=== PATIENT | male | born 1965 | race Caucasian/White ===

== ENCOUNTER 2016-07-09 09:38 | Emergency (ER) | payer OTHER ==
[~2016-07-09] VITALS: Ht 188 cm; Wt 82.0 kg
--- NOTE | 2016-07-09 10:02 | ED.REPORT ---
HPI-General Illness Date of Service Jul 09, 2016 ED Provider: Dr. Jose Armando Navarrete M.D. A 51 year old homeless male with a history of recently-diagnosed [place]'s disease presents to the ED after a ground level fall today at the [facility]. He reports hitting his head and is unsure of whether or not he lost consciousness. He also reports "heart cramping" and trouble concentrating. The patient declines x-ray or laboratory work but requests food and pain medication. Nursing Notes Stated Complaint: EVAL Nursing Notes Reviewed: Yes Allergies: Coded Allergies: No Known Allergies (Unverified , 07/09/16) General Time Seen by MD: 10:01 Chief Complaint Other (Ground level fall) Hx Obtained From: Patient Arrived By: Walk-in Sudden in Onset?: Yes Onset Occurred: 1 - 4 hours ago Symptom Duration: Since onset Caused by: Fall on ground Location: : Chest: Head Quality: Painful Severity: Current: Moderate Severity: Maximum: Moderate Associated with: Reports: Headache, Denies: Fever Pertinent Negative: Relieved by nothing Recent Healthcare: No recent doctor visit Similar Sx Previous: No Past Medical History Past Medical History [place]'s Disease Past Surgical History None reported Smoking History Unknown if Ever Smoker Social History Other Social History: Poor social support, Homeless Ambulatory Status Independent Review of Systems + trouble concentrating Full Review of Systems Constitutional: Denies: Fever Respiratory: Denies: Shortness of breath Cardiovascular: Reports: Chest pain ("cramping") GI: Denies: Vomiting Neurologic: Reports: Headache Complete sys rev & neg: except as marked. Physical Exam Vital Signs Vital Signs Date Time Temp Pulse Resp B/P Pulse Ox O2 Delivery O2 Flow Rate FiO2 07/09/16 10:30 37.4 121 16 142/67 99 Room Air Initial VS: Reviewed ENT: Conjunctiva normal, No scleral icterus Neck: Supple, Full range of motion Respiratory: Breath sounds normal, Clear to auscultation, No respiratory distress Cardiovascular: Regular rate & rhythm, Heart sounds normal Skin: Warm, Dry, No cyanosis Neurologic: Alert, Oriented, Nonfocal Psychiatric: Mood/affect normal, Behavior normal, Normal thought content General/Constitutional: Awake, Alert, No acute distress Head / Eyes: Atraumatic, Normocephalic No visible injury, crepitus, or deformity Respiratory / Chest: Breath sounds NL, Breath sounds = bilat, No respiratory distress Chest Wall / Ribs: Positive: Chest tender upper L, Chest tender upper R Re-Eval/Medical Decision Med Decision/Clinical Course This homeless disheveled gentleman has the appearance of one with [place]'s chorea with continuous choreoathetoid movements. He declines evaluation with x- ray or laboratory data and simply tells me that he is hungry and would like some pain pills. rn support services was contacted and will discuss community resources that may be available to help him. He does not appear to be in any immediate distress nor does he have any overt injuries that I can identify. Specifically, he states that he has had a head injury but I have no abnormalities identified on his head examination. Time of Eval: 11:25 Patient Status: Condition improved Re-Evaluation/Progress Note: Discussed with patient diagnosis and plan for discharge. Follow-up and return to the ER instructions given. Patient agrees with plan for care and all questions were addressed. Counseled Regarding: Diagnosis, Need for follow-up, When/why to return to ED Discharge & Departure Primary Impression: Fall from ground level Disposition: Home Discharge Condition All VS Reviewed: Yes Condition: Stable Patient Instructions: Fall Prevention for Older Adults (GEN) Additional Instructions: Thank you for entrusting us with your care. Your exam today was reassuring. Call the referred clinic tomorrow for a follow-up appointment. Return to the ER with any new or worsening symptoms. Referrals: [facility] Scribe Attestation Portions of this note were transcribed by Kristen Javier. I, Dr. Navarrete, personally performed the history, physical exam, and medical decision-making; I reviewed and confirmed the accuracy of the information in the transcribed note. Signed by: Cara Sorenson, 07/09/2016, 11:46 copies to: [facility] Jose Armando Navarrete MD Jul 09, 2016 10:02 KRISTEN JAVIER Jul 09, 2016 11:41
[2016-07-09 10:30] VITALS: BP 142/67; PULSE 121; RESP 16; O2SAT 99
[2016-07-10] MEDS ORDERED: HYDR-3089 PO (13:30)
[2016-07-10] MEDS ORDERED: ACET325T51 PO (13:30)
== END 2016-07-09 12:47 | disposition home or self-care (01) ==
LOC: SED 09:38
DX: S09.90XA Unspecified injury of head, initial encounter (principal); W19.XXXA Unspecified fall, initial encounter; Y93.89 Activity, other specified; Y92.10 Unspecified residential institution as the place of occurrence of the external cause; Y99.8 Other external cause status; Z59.0 Homelessness

== ENCOUNTER 2016-07-10 11:08 | Inpatient (IN) | payer OTHER ==
[~2016-07-10] VITALS: Ht 188 cm; Wt 74.0 kg
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
[2016-07-10] MEDS ORDERED: 0.9% Sodium Chloride 1,000 ML IV ONE (11:22)
[2016-07-10 11:37] VITALS: BP 117/98; PULSE 121; RESP 27; O2SAT 98
[2016-07-10] MEDS ORDERED: Bupivacaine 0.5%/EPI 50 mL Inj ONE (11:59)
[2016-07-10] MEDS ORDERED: Lidocaine 2%-Epi 1:100,000 20 mL Inj ONE (11:59)
[2016-07-10 12:01] VITALS: BP 127/70; PULSE 115; RESP 24; O2SAT 95
[2016-07-10] MEDS ORDERED: Ondansetron 2 mg/mL 2 mL Inj IVPUSH PRN ×2 (12:10→13:30)
[2016-07-10] MEDS ORDERED: HYDROmorphone 1 mg/mL Inj IVPUSH PRN (12:10)
[2016-07-10 12:13] LABS: BASOPHILS % (AUTO) 0.1 % (0-3); EOSINOPHILS % (AUTO) 0.2 % (0-5); MONOCYTES % (AUTO) 6.7 % (4-12); Mean Corpuscular Hemoglobin 30.3 pg (27.0-35.0); Mean Corpuscular Volume 91.5 fL (81-100); NEUTROPHILS % (AUTO) 88.5 % (40-74); Platelet Count 465 bil/L (150-400)
--- NOTE | 2016-07-10 12:17 | DRSVH ---
PROCEDURE: X-RAY LEFT FOOT COMPLETE, MINIMUM THREE VIEWS ([id number]) INDICATIONS: sepsis TECHNIQUE: 3 views of the foot were acquired. COMPARISON: None. FINDINGS: Bones: No fractures or dislocations. No discrete bony erosions or periosteal reaction. Soft tissues: There is soft tissue swelling laterally in the distal forefoot. There is also suggest ion of a soft tissue ulcer between the 1st and 2nd toes. IMPRESSION: 1. No definite evidence of osteomyelitis or fracture. 2. Soft tissue swelling laterally in the distal forefoot with suggestion of a soft tissue ulcer betw een the 1st and 2nd toes. Further evaluation may be obtained with an MRI if clinically indicated. Dictated by: Medardo Mohan M.D. on 07/10/2016 at 12:12 Approved by: Medardo Mohan M.D. on 07/10/2016 at 12:12
--- NOTE | 2016-07-10 12:19 | DRSVH ---
PROCEDURE: X-RAY RIGHT FOOT COMPLETE, MINIMUM THREE VIEWS ([id number]) INDICATIONS: sepsis TECHNIQUE: 3 views of the foot were acquired. COMPARISON: None. FINDINGS: Bones: Evaluation limited due to suboptimal positioning. No fractures or dislocations. No discrete bony erosions or periosteal reaction. Soft tissues: There is mild soft tissue swelling laterally at the level of the 5th metatarsophalangea l joint. There is also suggestion of a plantar soft tissue ulcer on the lateral projection of the le hedy of the metatarsophalangeal joints. IMPRESSION: 1. No definite fractures or radiographic evidence of osteomyelitis. 2. Soft tissue swelling laterally with suggestion of a plantar soft tissue ulcer. Further evaluatio n may be obtained with an MRI if clinically indicated. Dictated by: Medardo Mohan M.D. on 07/10/2016 at 12:14 Approved by: Medardo Mohan M.D. on 07/10/2016 at 12:14
--- NOTE | 2016-07-10 12:21 | DRSVH ---
PROCEDURE: X-RAY CHEST ONE VIEW, PORTABLE ([id number]) INDICATIONS: sepsis TECHNIQUE: One view of the chest was acquired. COMPARISON: None. FINDINGS: Surgical changes and devices: None. Lungs and pleura: No pleural effusions or pneumothorax. Lungs are clear. Mediastinum: Mediastinal contours appear normal. Heart size is normal. Bones and chest wall: No suspicious bony lesions. Overlying soft tissues appear unremarkable. IMPRESSION: 1. No acute cardiopulmonary disease. Dictated by: Medardo Mohan M.D. on 07/10/2016 at 12:17 Approved by: Medardo Mohan M.D. on 07/10/2016 at 12:17
[2016-07-10] MEDS ORDERED: Clindamycin Inj 900 MG in IV Premix 1 EACH IV ONE (12:45)
[2016-07-10] MEDS ORDERED: Vancomycin Dose per Pharmacist XX ONE ×2 (12:45→14:15)
[2016-07-10] MEDS ORDERED: Meropenem Inj 1,000 MG in 0.9% Sodium Chloride 100 ML IV ONE (12:45)
[2016-07-10 12:51] LABS: TROPONIN T 0.01 ug/L (0.0-0.011)
[2016-07-10 12:52] LABS: INR 1.24 ratio
[2016-07-10] MEDS ORDERED: Alum-Mag Hydrox-Simeth 30 mL Suspension PO PRN (13:30)
[2016-07-10] MEDS ORDERED: ACET325T51 PO (13:30)
[2016-07-10] MEDS ORDERED: HYDR-3089 PO (13:30)
[2016-07-10 14:03] VITALS: BP 105/52; PULSE 105; RESP 21; O2SAT 92
[2016-07-10] MEDS ORDERED: 0.9% Sodium Chloride 1,000 ML IV SCH (14:14)
[2016-07-10] MEDS ORDERED: HYDROmorphone 0.5 mg/0.5 mL iSecure Syringe IVPUSH PRN (14:15)
[2016-07-10] MEDS ORDERED: Glucose 40% Oral Gel 15 Gm Tube PO PRN (14:25)
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
[2016-07-10 15:06] VITALS: BP 117/65; PULSE 112; RESP 19; O2SAT 94
--- NOTE | 2016-07-10 15:17 | PCM.CHPPOD ---
Subjective Date of service Jul 10, 2016 History of Present Illness 51 year old homeless male evaluated in the ED with bilateral forefoot gangrene. Patient is a poor historian but states that he hasn't looked at his feet in a few months. Patient states that he doesnt routinely take off his shoes. Patient is complaining of hunger. Allergy Allergies: Coded Allergies: No Known Allergies (Unverified , 07/09/16) Medications Acetaminophen (Acetaminophen) 325 Mg Tablet 325 MG PO Q4H Hydrocodone-Acetaminophen 10-300 mg (Hydrocodone-Acetaminophen 10-300 mg) 1 Each Tablet 1 TABLET PO Q4H PRN PRN For Pain Social History Hx Alcohol Use: No Hx Substance Use: No Smoking Status: Unknown if Ever Smoker Podiatry Consult Exam Vital Signs Vital Sign - Last Date Time Temp Pulse Resp B/P Pulse Ox O2 Delivery O2 Flow Rate FiO2 07/10/16 14:03 105 21 105/52 92 Room Air 07/10/16 11:37 37.5 Result Diagram: 07/10/16 1208 07/10/16 1122 Lab Test 07/10/16 11:22 07/10/16 12:08 Sodium Level 136mEq/L (134-144) Potassium Level 3.7mEq/L (3.5-5.2) Chloride Level 95mEq/L (97-108) Carbon Dioxide Level 23mmol/L (18-29) Blood Urea Nitrogen 18mg/dL (6-24) Creatinine 0.96mg/dL (0.76-1.27) Estimat Glomerular Filtration Rate 87mL/min (>59) Glucose Level 136mg/dL (60-99) Calcium Level 8.8mg/dL (8.5-10.1) Magnesium Level 2.0mg/dL (1.6-2.6) Total Bilirubin 0.4mg/dL (0.0-1.2) Aspartate Amino Transf (AST/SGOT) 39U/L (0-50) Alanine Aminotransferase (ALT/SGPT) 35U/L (0-44) Alkaline Phosphatase 100U/L (25-150) Troponin T 0.010ug/L (0.0-0.011) Total Protein 7.3g/dL (6.4-8.4) Albumin 3.1g/dL (3.4-5.0) White Blood Count 20.5th/mm3 (3.8-10.1) Red Blood Count 4.12mil/mm3 (4.40-5.80) Hemoglobin 12.5g/dL (13.8-17.2) Hematocrit 37.7% (41.0-50.0) Mean Corpuscular Volume 91.5fL (81-100) Mean Corpuscular Hemoglobin 30.3pg (27.0-35.0) Mean Corpuscular Hemoglobin Concent 33.2% (32.0-37.0) Red Cell Distribution Width 13.1% (12.3-15.4) Platelet Count 465bil/L (150-400) Neutrophils (%) (Auto) 88.5% (40-74) Lymphocytes (%) (Auto) 4.0% (14-46) Monocytes (%) (Auto) 6.7% (4-12) Eosinophils (%) (Auto) 0.2% (0-5) Basophils (%) (Auto) 0.1% (0-3) Prothrombin Time 13.3sec (8.1-12.5) Prothromb Time International Ratio 1.24ratio Lactic Acid Level 2.0mmol/L (0.4-2.0) Exam General: Alert, Oriented X3, Cooperative, No Acute Distress Lower Extremities: Bilateral: Edema localized Extremity cool Lower Extremity Pulses: Absent: Left Dorsalis Pedis Left Posterior Tibal Right Dorsalis Pedis Right Posterior Tibal Podiatry WOUND : Wound Location/Description Bilateral forefoot wet gangrene with superficial skin sloughing to all digits. erythema extends to the midfoot bilaterally. THe forefoot is cold to touch bilaterally. severe mal odor. pulses are absent. notable edema bilateral forefoot. palpable fluctuance of the right 1st intermetatarsal space 1 cm proximal to the digital articulation, Multiple right foot wounds including dorsal midfoot and posterior heel. I&D of right foot is productive for mild purulent drainage. and mal odor of the right 1st webspace Multiple superficial excoriations of the left dorsal foot and posterior heel Assessment & Plan Assessment Gangrenous necrosis bilateral forefoot with multiple lower extremity ulcerations. Problems: Plan Patient evaluated in ED today. Clinical evaluation consistent with wet gangrene bilateral foot. after thorough discussion with patient Bilateral bedside incision and drainage was preformed. Bilateral foot prepped with betadine, a #11 blade was used to make a stab incision of the first webspace bilaterally as well as the dorsal right foot. gas noted with mal odor of bilateral 1st webspace. Mild purulent drainage noted to the right dorsal foot. wound cultures sent. wounds flushed with betadine and saline mixture. wounds packed with iodoform gauze and dressed with dry sterile gauze and kerlix. Continue broad spectrum antibiotic coverage. follow wound cultures and narrow appropriately. Plan for OR tomorrow for likely bilateral transmetatarsal amputation. Please keep NPO overnight tonight. Podiatry will follow daily. non weight bearing bilateral foot. patient likely to require longterm wound care following TMA and is at significant risk for bilateral BKA. Will likely require longterm SNF care or inpatient care due to homelessness. Simone Song DPM Jul 10, 2016 15:17
[2016-07-10] MEDS: 0.9% Sodium Chloride 1,000 ML IV SCH ×3 (15:41→16:30)
--- NOTE | 2016-07-10 15:50 | NUR ---
lovenox pt declined lovenox, stated he just had an injection in the e.r. and would consider taking it tomorrow. pt. instructed this medication prevents c;ot formation while he is being inactive. Information on lovenox given to pt.
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
[2016-07-10] MEDS: Insulin LISPRO 300 Unit/3 mL Inj SUBQ SCH ×2 (17:30→22:00)
--- NOTE | 2016-07-10 19:07 | NUR ---
UA/I>V> obtained urine specimen et sent to lab per orders. I.V. positional, ivt to bedside to restart , pt refused new iv start,flushes easilly at this time.
[2016-07-10 20:03] LABS: APPEARANCE,URINE SLIGHTLY CLOUDY (CLEAR,HAZY); COLOR,URINE YELLOW (YELLOW); OCCULT BLOOD,URINE LARGE (NEGATIVE); PH,URINE 5.5 (5.0-8.0)
[2016-07-10 20:30] VITALS: BP 141/69; PULSE 91; RESP 20; O2SAT 96
[2016-07-10] MEDS ORDERED: Clindamycin Inj 600 MG in IV Premix 1 EACH IV SCH (20:30)
[2016-07-10] MEDS: Meropenem Inj 1,000 MG in IV Premix 1 EACH IV SCH (22:12)
[2016-07-11] VITALS (12 sets, daily range): BP systolic 78–140; BP diastolic 40–80; PULSE 86–111; RESP 14–33; O2SAT 95–99
--- NOTE | 2016-07-11 01:59 | NUR ---
Refusal of BG check/insulin administration Despite multiple attempts patient has refused BG one touches throughout the shift. Patient is pleasant and politely refuses his BG to be checked. At 2200, patient was again educated on the importance of checking his blood sugar so that insulin could be given if he needed coverage. Patient still declined. Will continue to monitor, and continue to attempt BG checks. Will continue Q 1 hour checks.
[2016-07-11] MEDS: 0.9% Sodium Chloride 1,000 ML IV SCH ×4 (02:22→23:19)
--- NOTE | 2016-07-11 03:45 | NUR ---
Positive Blood Cultures/ MD Paged Notified by lab at 033 of a positive blood culture of Gram Negative Rods. Night hospitalist notified. No new orders at this time. Care continues
--- NOTE | 2016-07-11 06:08 | NUR ---
Lab Draw Refusal This morning patient refused to have lab preform a lab draw. Pt was educated on the importance of needing a lab draw so tests can be ran, but still declined. Patient again was polite throughout the discussion, but still did not agree to the draw. Will share this with day shift nurse. Care continues.
[2016-07-11] MEDS: Meropenem Inj 1,000 MG in IV Premix 1 EACH IV SCH ×2 (07:50→16:40)
[2016-07-11] MEDS: Insulin LISPRO 300 Unit/3 mL Inj SUBQ SCH ×4 (07:50→22:00)
[2016-07-11] MEDS ORDERED: Ondansetron 2 mg/mL 2 mL Inj ONE (09:25)
[2016-07-11] MEDS ORDERED: Propofol 10,000 mCg/mL 20 mL Inj ONE (09:25)
[2016-07-11] MEDS ORDERED: fentaNYL-PF 50 mCg/mL 2 mL Inj ONE (09:29)
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
--- NOTE | 2016-07-11 10:19 | NUR ---
Refuses Lab Draws and BGL checks Pt refusing blood glucose checks and lab draws despite education. Hospitalist aware. Will continue to attempt education and see if he gives us the ok. Bed down and locked, call light w/in reach
--- NOTE | 2016-07-11 10:36 | NUR ---
To OR Pt taken to OR via hospital bed at 1036. Consent signed, IV SL, report given to FRANCESCA Carmichael.
[2016-07-11] MEDS ORDERED: Lactated Ringer's 1,000 ML IV ONE (10:43)
[2016-07-11] MEDS ORDERED: Bupivacaine-MPF 0.5% W/EPI 30 mL Inj INFILTRATE ONE (11:00)
[2016-07-11] MEDS ORDERED: Lidocaine 2%-Epi 1:100,000 20 mL Inj INFILTRATE ONE (11:00)
[2016-07-11] MEDS ORDERED: Lactated Ringer's 500 ML IV PRN (11:17)
[2016-07-11] MEDS ORDERED: Lactated Ringer's 1,000 ML IV SCH (11:17)
[2016-07-11] MEDS ORDERED: Labetalol 5 mg/mL 4 mL Inj IV PRN (11:20)
[2016-07-11] MEDS ORDERED: Ondansetron 2 mg/mL 2 mL Inj IVPUSH PRN (11:20)
[2016-07-11] MEDS ORDERED: hydrALAZINE 20 mg/mL Inj IVPUSH PRN (11:20)
[2016-07-11] MEDS ORDERED: fentaNYL-PF 50 mCg/mL 2 mL Inj IVPUSH PRN (11:20)
[2016-07-11] MEDS ORDERED: HYDROmorphone 1 mg/mL Inj IVPUSH PRN (11:20)
[2016-07-11] MEDS ORDERED: Dexamethasone 4 mg/mL Inj IVPUSH PRN (11:20)
[2016-07-11] MEDS ORDERED: Atropine 0.4 mg/mL Inj IVPUSH PRN (11:20)
[2016-07-11] MEDS ORDERED: EPHEDrine Sulfate 50 mg/mL Inj IVPUSH PRN (11:20)
[2016-07-11] MEDS ORDERED: Phenylephrine 10,000 mCg/mL Inj IVPUSH PRN (11:20)
--- NOTE | 2016-07-11 11:24 | PCM.PNMED ---
Subjective Date of Service Jul 11, 2016 Subjective He is very solicitous. He appreciates all care provided and is quite verbal about it. He is evasive when questioned about his living situation. He is pending transmetatarsal amputation bilateral today. His blood cultures are growing gram-negative rods. His morning labs are still pending. He is reportedly refusing all blood sugars and blood draws beginning yesterday. Exam Vital Signs Vital Sign - Last Date Time Temp Pulse Resp B/P Pulse Ox O2 Delivery O2 Flow Rate FiO2 07/11/16 05:26 36.6 93 18 118/66 95 Room Air Intake and Output 07/10/16 07/10/16 07/11/16 Cumulative From/Thru 15:00 23:00 07:00 07/10/16 11:37 - 07/11/16 05:35 Intake Total 1000 ml 531 ml 2421 ml 3952 ml Output Total 1100 ml 639 ml 1739 ml Balance 1000 ml -569 ml 1782 ml 2213 ml Intake Oral 531 ml 600 ml 1131 ml IV Total 1000 ml 1821 ml 2821 ml Output Urine Total 1100 ml 639 ml 1739 ml # Voids 3 3 # Bowel Movements 0 0 Exam Alert and oriented 3, no apparent distress. Quite evasive but otherwise friendly and appreciative. Heart is regular rate and rhythm without murmur. Lungs are clear to auscultation bilaterally. Extremities have no ankle edema. He has large bandages on both feet which are not removed as he will be going to surgery in a few hours. IVs and Medications Medications Reviewed: Medications were reviewed in detail Lab and Diagnostics Result Diagram: 07/10/16 1208 07/10/16 1122 Assessment & Plan Reason for admission 51 y m homeless, w/ Sepsis due to bilateral forefeet wet gangrene s/p I and D bedside in ER --continue cody started in ER s/p clinda in the ER, stop vancomycin based on culture results --IVF NPO after midnight last night --Ullom / podiatry debridement today elevated blood glucose --pending A1c --SSI, which he is refusing. --pending lipid panel Chronic aline dementia, unknown past medication - No chorea observed. 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 DVT prophylaxis lovenox Anticipate community mental health social worker, homeless, high risk for future amputations, SNF recommended by podiatry [employer]TE Mechanical Devices: Intermittant Pneumatic CD Sandrita Martin MD Jul 11, 2016 07:55
[2016-07-11] MEDS ORDERED: Gentamicin 40 mg/mL 2 mL Inj IRRIGATION ONE ×2 (11:25→11:49)
[2016-07-11] MEDS ORDERED: Phenylephrine/NS-PF 100 mCg/mL 5 mL Syringe IVPUSH ONE (12:25)
--- NOTE | 2016-07-11 12:25 | NUR ---
Social Work: Initial Assessment D: Per EMR review, pt is a 51 year old male admitted for bilateral foot gangrenous. Pt is [facility]; pt has no supplement, LTC insurance or VA benefits. Pt has no PCP. NOK is Isauro Estrada, Brother ([phone]) and Shmuel Estrada, Son ([phone]). Advanced directives not completed- information provided to pt. Readmit score is low, 07/04. Pt discussed in am rounds. Pt is scheduled for surgery today with possible amputation. Sw consult placed by MD to discuss plan with pt. NUT DEHYDRATOR OPERATOR met with the pt at bedside. Sw role explained. See initial assessment. Pt is homeless and has been for 20 years. Pt reported to NUT DEHYDRATOR OPERATOR that he had not taken his shoes off for several months and that they had to be cut from his feet. Pt understands that he will require surgery and requested NUT DEHYDRATOR OPERATOR call his son, Shmuel, to notify of his status. Pt is currently refusing blood draws and blood glucose checks. NUT DEHYDRATOR OPERATOR discussed this with pt who remains adamant that he will not allow blood draws stating "I haven't eaten and don't have enough blood to give." Despite education from RN and NUT DEHYDRATOR OPERATOR, pt continues to decline. 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 NUT DEHYDRATOR OPERATOR informed him that pt is off the floor for surgery and requested an update after surgery. NUT DEHYDRATOR OPERATOR agreed that someone would contact him with an update. A: Pt who will likely require placement at time of discharge P: Evolving; Case Management to continue to follow and assess pt's needs once clinical course and needs are defined; Pt's insurance and psychosocial factors could be barrier to skilled rehab. -NUT DEHYDRATOR OPERATOR to consider possible [place] and/or [facility] pending clinical course. -Pt may also benefit from completing [facility] application with possible [facility] referral if pt is to have Accounting Representative Care needs post hospitalization. JONO Orona Addendum: 07/11/16 at 1240 by VICKI RIVAS SS Amended: Links added.
--- NOTE | 2016-07-11 12:36 | PCM.ANEP1 ---
Post Anesthesia Phase 1 PACU Phase 1 Assessment Date of Service: Jul 10, 2016 Vital Signs Vital Signs Date Time Temp Pulse Resp B/P Pulse Ox O2 Delivery O2 Flow Rate FiO2 07/11/16 05:26 36.6 93 18 118/66 95 Room Air Anesthetic Administered: GA Level of Alertness: Awake, talking ENRIQUEZ's with Equal Strength: Yes Pain: No Nausea or Vomiting: No Oxygen Delivery: Room Air Lungs: Normal Air Movement Robert Loyola MD Jul 11, 2016 12:36
--- NOTE | 2016-07-11 12:39 | PCM.PODPO ---
Podiatry Operative Report Date of Service: Jul 10, 2016 Date of Service Jul 11, 2016 Pre Operative Diagnosis Wet gangrenous necrosis bilateral lower extremity Sepsis secondary to severe foot infection bilateral lower extremity Post Operative Diagnosis Same as preoperative diagnosis Procedure Bilateral transmetatarsal amputation. Surgeon Surgeon: Simone Song DPM Assistants: None Indication for Procedure Wet gangrene with positive blood cultures Findings Large abscess formation of the right lateral forefoot wet gangrenous necrosis bilateral lower extremity gangrenous necrosis of the metatarsal heads of the right lower extremity with intact and normal appearance of the metatarsals of the left lower extremity. Details of Procedure Patient was identified in the preoperative holding area by surgery and anesthesia and the nursing staff and transported into the operating room. This patient was then prepped and draped in the normal aseptic technique. A preoperative block consisting of 20 mL of a one-to-one mixture of half percent Marcaine with epinephrine and 2% lidocaine with epinephrine was given to bilateral ankles for a total 40 mL. Attention was first paid to the right lower extremity. A #10 blade was utilized to incise through the line of demarcation approximately 1-1/2 cm proximal to the digital articulation dorsally straight down to bone once through the initial layer of skin a large amount of purulent drainage was noted. This incision was carried circumferentially attempting to salvage as much plantar soft tissue as possible following the line of demarcation. The right forefoot was disarticulated at the metatarsal phalangeal joint the entirety of digits 1 through 5 was sent collectively for microbiologic analysis and wound culture. The metatarsal heads of the right third fourth and fifth metatarsal were wooten in appearance and there was some discoloration noted of the right medial aspect of the first metatarsal as well. A sagittal saw was then utilized to resect to the proximal mid shaft of the right lower extremity metatarsals 1 through 5 to ensure that all necrotic and infected bone was removed in total. This patient was noted to have adequate blood flow to his forefoot with multiple small bleeders noted. Large bleeding vessels were cauterized. Epinephrine soaked gauze was then placed against the wound edge and compression was applied with Coban while attention was paid to the left forefoot. A fresh #10 blade was utilized to follow the line of demarcation of the dorsal left forefoot which coincided with the digital articulation. This incision was carried directly down to bone. The incision was carried circumferentially taking care to try and salvage as much plantar soft tissue as possible. A small amount of purulent drainage was noted. Digits 1 through 5 were disarticulated at the metatarsal phalangeal joint and the entirety of the left forefoot was sent for wound culture. Inspection of the tissue revealed healthy bleeding tissue without further signs of necrosis. There is a small area of the dorsal left first intermetatarsal space with a partial-thickness wound however no abscess was noted deep to this area. This wound was copiously flushed with approximately 1500 mL of lactated Ringer's with gentamicin. Inspection of metatarsals 1 through 5 revealed normal color without any noted discoloration or necrosis. The decision was made not to resect any further metatarsal at this time. This wound is going to be left open for closure at a later time to ensure no further abscess formation. The dorsal left foot wound measures 3 cm x 2 cm x 0.1 cm in depth. The amputation site wound measures 11 cm x 6 cm with exposed metatarsal head 1 through 5. This wound was then dressed with Betadine soaked gauze sterile 4 x 4 gauze ABDs pads and multiple layers of Kerlix under moderate compression to aid in hemostasis. The right lower extremity compression wrap was removed and mild bleeding was noted of the right forefoot amputation site however no major bleeders were identified. This wound was copiously flushed with approximately 1500 mL of lactated Ringer's with gentamicin. Inspection of the right dorsal foot reveals a full-thickness ulceration to subcutaneous tissue without tendon or exposed bone overlying the dorsal medial foot measuring 5 cm x 4 cm x 0.2 cm with no deep abscess formation. A posterior heel ulceration is present which is full- thickness with overlying eschar measuring 4 cm x 3 cm and is even with surrounding tissue. The amputation site measures 12 cm x 6 cm x 2 cm in depth. Inspection of the deep tissue reveals healthy bleeding tissue without further purulent drainage noted. This wound was then dressed with Betadine soaked gauze sterile 4 x 4 gauze ABDs pads and multiple layers of Kerlix under mild compression to aid in hemostasis. This patient was then awoken by anesthesia and transported out of the operating room. No complications occurred during this procedure. Due to moderate blood loss a stat hemoglobin and hematocrit level were ordered to be drawn in the postanesthesia care unit. Plan of care is to continue inpatient IV antibiotic therapy and likely return to the OR within 48-72 hours for further washout and debridement. Grafts, Implants: None Complications There were no periprocedural complications identified. Condition Stable Anesthetic Administered: MAC Catheters: None Output, Estimated Blood Loss: 300 Blood Admin during surgery: No Surgical Cast or Splint: None Surgical Specimen Removed: Yes Specimen sent to Pathology: No Surgical Specimen description: Bilateral forefoot Post Operative Plan Transfer back to the floor when stable Restart inpatient medications per hospitalist service recommendation Continue IV antibiotic therapy Follow-up wound cultures Nonweightbearing bilateral lower extremity Plan for return to the operating room within 72 hours for washout and further debridement bilateral lower extremity Follow-up stat H&H and transfuse if necessary Podiatry will continue to follow daily Simone Song DPM Jul 11, 2016 12:38
--- NOTE | 2016-07-11 13:08 | NUR ---
Post Op Pt arrived back to [facility] rm 1015 via hospital bed. Rec'd report from FRANCESCA Haley, Pt educated on strict non-weightbear status, call light w/in reach. Complains of 7/10 pain, appears comfortable. Bilateral feet elevated and wrapped in acewraps. Potential for a lot of bleeding per court liaison. Continue to monitor
--- NOTE | 2016-07-11 16:54 | NUR ---
BS Hospitalist notified via cook page that pt continues to refuse blood sugar checks/insulin.
--- NOTE | 2016-07-11 18:17 | NUR ---
Activity Pt OOB attempting to use urinal at 1730 despite NWB orders and education and eva alarm. Provided re-education. [place] alarm on. Dressings to bilateral feet stable. To monitor.
--- NOTE | 2016-07-11 19:15 | PCM.ANEP2 ---
Post Anesthesia Evaluation ASA/CMS Post Anesthesia VS in Patient's Normal Range?: Yes Resp Stable; Airway Patent?: Yes CV Function & Hydration Stable: Yes Mental Status Recovered?: Yes Pain control Satisfactory?: Yes N/V Control Satisfactory?: Yes Robert Loyola MD Jul 11, 2016 19:15
[2016-07-12] MEDS: Meropenem Inj 1,000 MG in IV Premix 1 EACH IV SCH ×3 (00:29→16:29)
--- NOTE | 2016-07-12 04:53 | NUR ---
Update on pt's status Pt. has refused a full assessment including skin and listening to bowel and lung sounds. Pt. continues refuses ACHS blood sugar checks, despite education. Pt. has stayed in bed, and used call light appropriately throughout shift. Will continue to monitor.
[2016-07-12 05:01] VITALS: BP 107/54; PULSE 95; RESP 18; O2SAT 99
--- NOTE | 2016-07-12 07:25 | PCM.PNMED ---
Subjective Date of Service Jul 12, 2016 Subjective PT doing ok this AM, reports pain 12/04. denies sob/cp/fever Exam Vital Signs Vital Sign - Last Date Time Temp Pulse Resp B/P Pulse Ox O2 Delivery O2 Flow Rate FiO2 07/12/16 05:01 37.2 95 18 107/54 99 Room Air Intake and Output 07/11/16 07/11/16 07/12/16 Cumulative From/Thru 15:00 23:00 07:00 07/10/16 11:37 - 07/12/16 06:28 Intake Total 600 ml 900 ml 2832 ml 8284 ml Output Total 300 ml 450 ml 720 ml 3209 ml Balance 300 ml 450 ml 2112 ml 5075 ml Intake Oral 900 ml 600 ml 2631 ml IV Total 600 ml 2232 ml 5653 ml Output Urine Total 450 ml 720 ml 2909 ml Estimated Blood Loss 300 ml 300 ml # Voids 2 5 # Bowel Movements 0 0 Exam Alert and oriented 3, no apparent distress. pleasant Heart is regular rate and rhythm without murmur. Lungs are clear to auscultation bilaterally. Extremities have no ankle edema. He has large bandages on both feet that are c/ d/i, hips/knees in flexed position, trace pretibial edema on RLE IVs and Medications Medications Reviewed: Medications were reviewed in detail Lab and Diagnostics Result Diagram: 07/11/16 1230 07/10/16 1122 Assessment & Plan Reason for admission 51 y m homeless, w/ Sepsis due to bilateral forefeet wet gangrene s/p I and D bedside in ER --continue cody started in ER s/p clinda in the ER, stop vancomycin based on culture results - await ID --IVF, UOP adequate --Ullom / podiatry debridement yesterday Bacteremia -gram negative, +cx from 07/10 -cont vanc/meropenem -repeat bld cx today elevated blood glucose --pending A1c --SSI, which he is refusing. --pending lipid panel Chronic aline dementia, unknown past medication - No chorea observed. 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 DVT prophylaxis lovenox Anticipate administrator social welfare, homeless, high risk for future amputations, SNF recommended by podiatry Pain Evaluation: Adequate Pain Control VTE Mechanical Devices: Intermittant Pneumatic CD Resuscitation Status: CPR: Attempt Resuscitation Time spent 25 minutes spent with eval and mgmt - >50% time spent counseling and face to face Attending Statement discharge to SNF - after micro ID - repeat bld cx today given bacteremia, await ID/sens Torey Crouch DO Jul 12, 2016 07:25
[2016-07-12] MEDS: Insulin LISPRO 300 Unit/3 mL Inj SUBQ SCH ×4 (08:00→22:00)
--- NOTE | 2016-07-12 08:00 | NUR ---
Patient Care Pt refused almost all care this morning. Pt refused to have ACHS checks, insulin, and Lovenox despite education. Pt refused to have labs drawn. Pt refused to have vitals taken. Pt accepted IV antibiotics and pain medication. Will continue to encourage pt to allow treatments for his benefit. Care continues.
[2016-07-12] MEDS: 0.9% Sodium Chloride 1,000 ML IV SCH ×2 (08:30→16:05)
[2016-07-12] MEDS ORDERED: Vancomycin Serum Trough XX ONE (13:30)
--- NOTE | 2016-07-12 14:45 | NUR ---
Social Work Continued Discharge Planning: CAROL spoke to patient and son Shmuel, at bedside to discuss discharge plan. SNF options discussed with patient and family and plan is SNF placement. SNF choice list provided to son for review. Patient and family in agreement to any in network SNF. CAROL consulted with UR specialist to send referrals to all network SNF's for possible acceptance. SW to also follow for possible placement at [facility] or [facility] for swing bed, if medically appropriate. CAROL spoke to [facility] rep [place] for possible Medicaid initiation. Per Marlene patient [facility] [place] plan is a division of Medicaid. Rep requested that call to [facility] take place tomorrow for possible screen. SW to follow. PLAN: SNF, pending accepting facility and clinical course. CAROL to follow to determine plans of care. Gregorio DE LA CRUZ Addendum: 07/12/16 at 1552 by EUGENIO EMERSON CAROL consulted with SW field training manager. CAROL to plan possible [facility] swing bed referral for possible acceptance. CAROL initiated [facility] referral for possible placement at [facility], pending acceptance and [facility] referral. SW to also follow up with [facility] tomorrow. SW to follow. PLAN: Possible [facility] swing bed vs [facility] under [facility], pending acceptance and clinical course. Gregorio DE LA CRUZ Addendum: 07/12/16 at 1601 by EUGENIO LEOS [facility] referral faxed to [phone]. SW notated on referral for assessment service request for [facility] placement. Patient shows periods of confussion. SW to request therapy eval. Due to extensive care needs and amputation/abx needs. SW to follow. Gregorio DE LA CRUZ
--- NOTE | 2016-07-12 14:55 | PCM.PNPOD ---
Subjective Date of Service: Jul 12, 2016 Date of Service: Jul 12, 2016 Visit Information: Reason for Visit Bilateral Foot Gangrenous Surgery/Surgery Date OUMOU TRANSMETATARSAL AMPUTATION Post-Op Day # 1 Date of Admission: Jul 10, 2016 at 14:14 Hospital Day #3 Subjective: 51-year-old male evaluated resting comfortably in bed in no acute distress day 1 status post bilateral partial foot amputation. Patient denies any new issues or events overnight. Patient denies any significant pain associated with his feet. Gastrointestinal: Good Appetite Objective Vital Sign - Last Date Time Temp Pulse Resp B/P Pulse Ox O2 Delivery O2 Flow Rate FiO2 07/12/16 05:01 37.2 95 18 107/54 99 Room Air Intake and Output 07/11/16 07/11/16 07/12/16 Cumulative From/Thru 15:00 23:00 07:00 07/10/16 11:37 - 07/12/16 06:28 Intake Total 600 ml 900 ml 2832 ml 8284 ml Output Total 300 ml 450 ml 720 ml 3209 ml Balance 300 ml 450 ml 2112 ml 5075 ml Intake Oral 900 ml 600 ml 2631 ml IV Total 600 ml 2232 ml 5653 ml Output Urine Total 450 ml 720 ml 2909 ml Estimated Blood Loss 300 ml 300 ml # Voids 2 5 # Bowel Movements 0 0 Result Diagram: 07/11/16 1230 07/10/16 1122 Lab Test 07/10/16 11:22 07/10/16 12:08 07/10/16 18:20 07/11/16 12:30 Sodium Level 136mEq/L (134-144) Potassium Level 3.7mEq/L (3.5-5.2) Chloride Level 95mEq/L (97-108) Carbon Dioxide Level 23mmol/L (18-29) Blood Urea Nitrogen 18mg/dL (6-24) Creatinine 0.96mg/dL (0.76-1.27) Estimat Glomerular Filtration Rate 87mL/min (>59) Glucose Level 136mg/dL (60-99) Calcium Level 8.8mg/dL (8.5-10.1) Magnesium Level 2.0mg/dL (1.6-2.6) Total Bilirubin 0.4mg/dL (0.0-1.2) Aspartate Amino Transf (AST/SGOT) 39U/L (0-50) Alanine Aminotransferase (ALT/SGPT) 35U/L (0-44) Alkaline Phosphatase 100U/L (25-150) Troponin T 0.010ug/L (0.0-0.011) Total Protein 7.3g/dL (6.4-8.4) Albumin 3.1g/dL (3.4-5.0) White Blood Count 20.5th/mm3 (3.8-10.1) Red Blood Count 4.12mil/mm3 (4.40-5.80) Mean Corpuscular Volume 91.5fL (81-100) Mean Corpuscular Hemoglobin 30.3pg (27.0-35.0) Mean Corpuscular Hemoglobin Concent 33.2% (32.0-37.0) Red Cell Distribution Width 13.1% (12.3-15.4) Platelet Count 465bil/L (150-400) Neutrophils (%) (Auto) 88.5% (40-74) Lymphocytes (%) (Auto) 4.0% (14-46) Monocytes (%) (Auto) 6.7% (4-12) Eosinophils (%) (Auto) 0.2% (0-5) Basophils (%) (Auto) 0.1% (0-3) Prothrombin Time 13.3sec (8.1-12.5) Prothromb Time International Ratio 1.24ratio Lactic Acid Level 2.0mmol/L (0.4-2.0) Urine Color Yellow (YELLOW) Urine Appearance Slightly cloudy Urine pH 5.5 (5.0-8.0) Urine Specific [place] 1.025 (1.003-1.035) Urine Protein Negativemg/dL (NEG,TRACE) Urine Glucose (UA) Negativemg/dL (NEGATIVE) Urine Ketones 15mg/dL (NEGATIVE) Urine Occult Blood Large (NEGATIVE) Urine Nitrite Positive (NEGATIVE) Urine Bilirubin Negative (NEGATIVE) Urine Urobilinogen 1.0mg/dL (NORMAL) Urine Leukocyte Esterase Negative (NEGATIVE) Urine RBC 3-10/hpf (0-2) Urine WBC 0-5/hpf (0-5) Urine Epithelial Cells None/hpf (NONE-MOD) Urine Crystals None seen (NONE SEEN) Urine Bacteria Moderate/hpf (NONE-FEW) Urine Hyaline Casts None/lpf (NONE) Urine Granular Casts None seen (NONE SEEN) Urine Waxy Casts None seen (NONE SEEN) Urine Red Blood Cell Casts None seen (NONE SEEN) Urine White Blood Cell Casts None seen (NONE SEEN) Urine Mucus Present (None Seen) Urine Trichomonas None seen (NONE SEEN) Urine Yeast None (NONE SEEN) Urinalysis Comment None Urine Culture Reflexed Indicated Hemoglobin 9.0g/dL (13.8-17.2) Hematocrit 28.9% (41.0-50.0) Exam General: Alert, Oriented X3, Cooperative, No Acute Distress Lungs: Normal Air Movement Lower Extremities: Bilateral: Edema localized Extremity cool Lower Extremity Pulses: Absent: Left Dorsalis Pedis Left Posterior Tibal Right Dorsalis Pedis (secondary to edema) Right Posterior Tibal Postop Sensory Motor: Motor 5/5 Podiatry WOUND : Wound Location/Description Bilateral lower extremity dressing is clean and dry without any notable strike through Surgical Cast or Splint: None Assessment & Plan Impression Stable day 1 status post bilateral forefoot amputation with multiple lower extremity ulcerations Problems: Plan Dressing left intact today. Patient appears to be quite stable status post bilateral forefoot amputation. Plan of care is to continue IV antibiotic regimen and follow-up wound cultures. Suggest consultation for infectious disease once his wound cultures have returned. Plan for return to the operating room tomorrow for washout and further debridement bilateral lower extremity. Please make nothing by mouth after midnight tonight Long-term plan of care will likely include prolonged daily local wound care and prolonged IV antibiotic therapy. Patient will likely require placement into a assisted facility. Nonweightbearing bilateral lower extremity Simone Song DPM Jul 12, 2016 14:55
--- NOTE | 2016-07-12 15:06 | PCM.PHAPRO ---
Progress Vancomycin Management: -pt is refusing lab draws so unable to assess Vancomycin at this point. Will attempt to order prior to next dose at 0130 on 07/13. if unable, perhaps an alternative antibiotic should be initiated Lottie Jimenez [facility] Jul 12, 2016 15:06
--- NOTE | 2016-07-12 20:44 | NUR ---
7-7am vinnie Refused vital signs, does not like to be bothered. RN is aware. Addendum: 07/12/16 at 2045 by FAVIO ZALDIVAR CNA Amended: Links added.
[2016-07-13] VITALS (8 sets, daily range): BP systolic 90–146; BP diastolic 49–72; PULSE 78–97; RESP 17–22; O2SAT 95–100
[2016-07-13] MEDS: Meropenem Inj 1,000 MG in IV Premix 1 EACH IV SCH ×2 (00:21→10:52)
[2016-07-13] MEDS: 0.9% Sodium Chloride 1,000 ML IV SCH ×4 (00:22→22:02)
--- NOTE | 2016-07-13 01:16 | NUR ---
Refusing lab tests Pt refused all lab tests. Spoke with pt and educated regarding the fact that we must monitor the amount of Vanco in his blood to stay safe and in order to ensure that he is improving. Pt continues to decline.
[2016-07-13] MEDS ORDERED: Vancomycin Serum Trough XX ONE (01:30)
--- NOTE | 2016-07-13 03:53 | NUR ---
Bedding Asked patient if I may change his sheets as they are visibly soiled, patient replied " Thank you proper, but they were changed the other day"
[2016-07-13] MEDS: Insulin LISPRO 300 Unit/3 mL Inj SUBQ SCH ×4 (07:45→22:00)
[2016-07-13] MEDS ORDERED: Propofol 10,000 mCg/mL 20 mL Inj ONE (09:30)
--- NOTE | 2016-07-13 10:30 | NUR ---
NUTRITION ASSESSMENT: ASSESS: 51 YO homeless male with sepsis from bilateral forefoot wet gangrene. Pt is s/p bilateral transmetatarsal amputation with multiple lower extremity ulcerations. Plan is for pt to return to the OR tomorrow for further debridement. PMHx: [place], possible diabetes. LABS: Reviewed. Glu 136, Alb 3.1 MEDS: Reviewed. GI: No BM reported at this time. SKIN: bilateral transmetatarsal amputation with multiple lower extremity ulcerations CURRENT WT: 77.3 kg. DIET: Diabetic. PO 100%. EST. NEEDS: 5986-2182 kcals (30-35 kcals/kg BW), 90-115 g protein (1.2-1.5 g/kg BW) NUTRITION DIAGNOSIS: 1.) Increased nutrient needs related to increased demand for nutrients for wound healing as evidenced by bilateral transmetatarsal amputation wounds and multiple lower extremity ulcerations. NUTRITION INTERVENTION: 1.) Will add ensure BID to promote adequate calorie and protein to support wound healing. 2.) Will add ritchie BID to help promote wound healing. MONITOR / EVAL: PO intake, labs, wound healing, nutritional status. Follow per low nutritional risk guidelines. Addendum: 07/13/16 at [address] As pt with possible diabetes, ensure supplement changed to Glucerna supplement BID.
[2016-07-13] MEDS: Ciprofloxacin Inj 400 MG in IV Premix 1 EACH IV SCH ×2 (12:26→23:41)
--- NOTE | 2016-07-13 13:56 | PCM.PNMED ---
Subjective Date of Service Jul 13, 2016 Subjective Patient was seen and examined today. Patient states that his pain is currently well controlled with his current regiment. Patient is still refusing any blood draws or IV sticks of any kind. It was explained to the patient the reasoning for the blood draws however the patient stated that he understood but still refuses to allow any needle sticks of any kind at this time. Patient still has IV access and he is okay with this. Patient has been afebrile for the last 24 hours and is currently on appropriate antibiotic coverage. Exam Vital Signs Vital Sign - Last Date Time Temp Pulse Resp B/P Pulse Ox O2 Delivery O2 Flow Rate FiO2 07/13/16 05:33 37.1 97 18 146/49 97 Room Air Intake and Output 07/12/16 07/12/16 07/13/16 Cumulative From/Thru 15:00 23:00 07:00 07/10/16 11:37 - 07/13/16 06:20 Intake Total 1325 ml 923 ml 98366 ml Output Total 1000 ml 700 ml 4909 ml Balance 325 ml 223 ml 5623 ml Intake Oral 1000 ml 320 ml 3951 ml IV Total 325 ml 603 ml 6581 ml Output Urine Total 1000 ml 700 ml 4609 ml Estimated Blood Loss 300 ml # Voids 1 6 # Bowel Movements 0 Exam Physical Exam: GEN: Patient was awake, alert, responding to questions HEENT: PERRLA, EOMI, Neck soft supple, trachea midline, nomocephalic/atraumatic CV: +S1/S2, RRR, positive systolic murmur Respiratory: CTAB, no wheezes, rales, rhonchi GI: +bowel sounds x4, soft, compressible, non TTP EXT: no c/c/e, feet were wrapped in Quentin bandage bilaterally no signs of fluid or leakage on the bandages. Bandages are clean dry and intact, left lower extremity was mildly tender to palpation. Skin: Multiple abrasions in the lower extremities, moist, warm Neuro: CN II-XII grossly intact Psych: mood agitated and affect flat IVs and Medications Medications Reviewed: Medications were reviewed in detail Lab and Diagnostics Result Diagram: 07/11/16 1230 07/10/16 1122 Microbiology Microbiology 07/10/16 Blood Culture - Final, Complete Hafnia Alvei 07/10/16 Urine Culture - Final, Complete Mixed Urogenital Beth 07/11/16 Gram Stain - Final, Resulted 07/11/16 Culture & Sensitivity - Preliminary, Resulted Insufficient growth, culture is reinc... 07/11/16 Anaerobic Culture, Resulted Pending Microbiology MANUEL CULTURE BLOOD Final 07/13/16-0625 Organism 1 BETITO MORENO GRAM STAIN RESULT GRAM NEGATIVE RODS BC BOTTLE Isolated from Anaerobic Bottle of Set Drawn DATE CALLED: 07/11/16 TIME CALLED: 0335 CALLED BY: [place] FLOOR/DOCTOR: ART/GRETCHEN Stewart, RN BC READ BACK Y TYPE OF DRAW PERIPHERAL DRAW TIME OF POSITIVITY 0300 GRAM STAIN RESULT GRAM NEGATIVE RODS BC BOTTLE2 Isolated from Aerobic Bottle of Set Drawn DATE CALLED: 07/11/16 TIME CALLED: 0530 CALLED BY: [place] FLOOR/DOCTOR: ART/GRETCHEN Stewart BC READ BACK Y TYPE OF DRAW PERIPHERAL DRAW TIME OF POSITIVITY 0450 ISOLATED FROM FOUR OF FOUR BOTTLES COLLECTED 07/10 1. BETITO TIFFANIE [facility]I.[facility] Interp --------- ------ * AMIKACIN <=2 S * AMPICILLIN R * AMPICILLIN/SULBACTAM R * CEFAZOLIN >=64 R * CEFEPIME <=1 S * CEFOXITIN R * CEFTRIAXONE <=1 S * CIPROFLOXACIN <=0.25 S * GENTAMICIN <=1 S Assessment & Plan 51 year old male homeless, w/ Sepsis due to bilateral forefeet wet gangrene s/p I and D bedside in ER Bilateral forefoot wet gangrene -- Stop vancomycin patient is refusing blood draws and unable to obtain a vancomycin trough. Switch patient to Cipro 500 mg twice a day IV -- Blood Cultures positive for Halfnia Alvei sensitive to Cipro -- Discontinue meropenem at this time as there are no cultures positive for Pseudomonas -- Consult infectious disease for further antibiotic recommendations --IVF, UOP adequate -- Podiatry still following Bacteremia -gram negative, +cx from 07/10 -- Blood Cultures positive for Halfnia Alvei sensitive to Cipro -- Infectious disease has been consulted Elevated blood glucose -- Unable to obtain hemoglobin A1c, lipid panel as patient is still refusing any blood draws or needle sticks. It has been explained to the patient the importance of these tests the patient states that he understands and still refuses. Chronic aline dementia, unknown past medication - No chorea observed. 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 DVT prophylax: Lovenox has been prescribed however the patient is currently refusing Anticipated discharge planning: Patient is homeless and currently SNF has been recommended by podiatry. environmental services floor tech is currently working on placement at [facility], patient is currently a high risk for possible future amputation Pain Evaluation: Adequate Pain Control VTE Mechanical Devices: Intermittant Pneumatic CD Resuscitation Status: CPR: Attempt Resuscitation Kelli Carney DO Jul 13, 2016 11:48
--- NOTE | 2016-07-13 15:50 | NUR ---
Social Work Continued Discharge Plan: SW following for placement. [facility] [place] has no swing bed availability until Tuesday. SW also completed an expedited [facility] referral for possible [facility] placement. SW spoke to [facility] rep Milli Gareth, who states that paperwork obtained and she to contact patient for hospital bedside eval for placement for AFH or ADRIENNE. SW to follow to determine availability. ID following. PLAN: [facility] [place] swing bed (No bed at this time) vs adult family home/JAIL via [facility] services, pending placement. Gregorio DE LA CRUZ
[2016-07-13] MEDS: Ertapenem Inj 1,000 MG in 0.9% Sodium Chloride 50 ML IV SCH ×2 (16:25→22:08)
--- NOTE | 2016-07-13 17:38 | NUR ---
Off Unit Patient off unit to PACU via bed. SL. Antibiotics sent with chart.
[2016-07-13] MEDS ORDERED: Bupivacaine-MPF 0.5% W/EPI 30 mL Inj INFILTRATE ONE (17:40)
[2016-07-13] MEDS ORDERED: Lidocaine PF 1% 30 mL Inj INJ ONE (17:40)
[2016-07-13] MEDS ORDERED: Bupivacaine-MPF 0.5% 30 mL Inj INJ ONE (17:40)
[2016-07-13] MEDS ORDERED: Lactated Ringer's 1,000 ML IV ONE ×2 (17:40→19:40)
[2016-07-13] MEDS ORDERED: Gentamicin 40 mg/mL 2 mL Inj IRRIGATION ONE (17:41)
--- NOTE | 2016-07-13 17:41 | CONS ---
[address] [address] CONSULTATION REPORT PATIENT: ZHANG FORD : 1965 MR#: [id number] ADMIT: 07/10/2016 JOB ID: [id number] DATE OF SERVICE: 07/13/[address] Kelli Carney for this timely consult. REASON FOR CONSULTATION: Hafnia bacteremia. HISTORY OF PRESENT ILLNESS: The patient is an unfortunate, 51-year-old homeless gentleman who has underlying Moffat's chorea. He has an unusual movement disorder of his face and head apparently related to the Moffat and has been living largely out in the environment. He came to the ED on the and complained of bilateral foot pain. Little was done and the patient was discharged but he returned the following day, after having been sent to a homeless group home where it was discovered that he had not taken his shoes and socks off for a period of weeks or perhaps months. At the homeless group home apparently, a colleague helped him take off his shoes and it was discovered that his forefeet were basically gangrenous. At that point, he was returned to the hospital where he underwent an emergent bilateral transmetatarsal amputation by Dr. Song. Following the surgery which occurred two days ago, the patient has been relatively stable and he awaits some additional debridement of his feet. He denies having had significant fevers, chills or sweats prior to the discovery that his feet were necrotic. He does reports that as he was riding his bicycle and walking around town, his boots felt unusually full as if his feet were swelling. It was also noted by others there was a foul order emanating from his feet. When his boots were eventually removed after some weeks or months, it was found that he had necrotic feet leading to the amputation. Other than that, the patient has little in the way of complaints except for bad teeth and his chronic movement disorder. He continues to be free of fevers, chills, or sweats, has minimal, if any, cough or shortness of breath, no significant GI symptoms and complains very little about foot pain despite having recently undergone bilateral TMA. The blood cultures have grown Hafnia, which is an extremely rare organism and this is the reason ID has been consulted. PAST MEDICAL HISTORY: 1. Moffat's chorea. 2. Possible diabetes mellitus. The patient denies explicitly psychiatric history. SOCIAL HISTORY: The patient used to work at [employer] but has gradually become homeless. He recently lost his mobile home which is where he used to live and now sleeps in churches, store fronts or occasionally just out in the open cold. He notes that he has relatives on [place] including siblings as well as other relatives in [place], but it is unclear what his relationship is to them. He is not a cigarette smoker nor an alcohol consumer. FAMILY HISTORY: Positive for Moffat's and his dad at age 63. He denies any history of TB. REVIEW OF SYSTEMS: Was done. The patient reiterates numerous times that he is quite hungry as he has been made n.p.o. for his repeat debridement. Otherwise, he has minimal, if any, headache, no visual complaints. He notes he has very poor teeth, and they are basically "falling apart." Minimal sore throat. No real cough or shortness of breath. No chest pain, nausea, vomiting, or diarrhea. No dysuria. His feet are as described above. PHYSICAL EXAMINATION: Reveals a gentleman who has been afebrile during his 48 hours in the hospital now temperature 37.1, pulse 97, respiratory rate 18, blood pressure 146/49 and he is saturating 97% on room air. He has unusual smacking and contortions of his face which occur with regularity. When asked, he states these are part of his Moffat's. There is no evidence for head trauma. His eyes are without conjunctivitis. Oral cavity is notable for truly terrible dentition with carious teeth, some are missing, and no evidence though of pharyngitis or overt gum disease. Neck without adenopathy. Reasonably supple. Lungs basically clear. Cardiac tones with 2/6 systolic murmur heard along the left lower sternal border. Abdomen is soft and nontender. No Clay catheter is present. The examination of the upper extremities is largely benign. There is no obvious tremor or choreiform movements of the limbs. The lower extremities are both notable for large dressings placed over both feet at the site of his transmetatarsal amputation. He will be going to the operating room within the next hour apparently for some repeat debridements. There is no evidence for hypoperfusion of visible lower extremities and the skin is warm and dry. No synovitis is noted. Neurologically, the patient seems to be intact but, of course, it is difficult for him to walk given this situation. LABORATORY STUDIES: Labs include a white count which was 20,000 on admission the . It has not been repeated as the patient has been declining blood draws. His creatinine was 0.96, also not repeated. Blood cultures x2 sets are positive for Hafnia which grew from all four bottles done in the emergency department. Cultures of the foot done pre and post debridement are basically negative. A few GPCs were seen on one culture but nothing grew and another there were rare polys but no organisms and a final 3rd culture is growing a few gram-negative rods which the lab is working to identify. IMAGING: Includes a chest x-ray which is basically normal and x-rays of both feet. The right foot showed plantar soft tissue ulcer but, of course, this was done prior to the debridement. Likewise, the left foot shows soft tissue swelling with possible ulceration between the 1st and 2nd toes. These areas have already been debrided. The procedure note from the was reviewed. Dr. Song reports that there was wet gangrene of the forefeet bilaterally and sepsis secondary to this. A bilateral TMA was done at that time. He notes that a large abscess was found in the right lateral forefoot with wet gangrene. 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 He notes that he had a positive genetic test done at [place] but is not sure when. He also states his dad had Bethel's and certainly he has some movement issues involving his face that could be Moffat's or, alternatively, could be tardive dyskinesia. Because the patient says he has no psych history and has taken no psych meds, Bethel's would seem to be a better explanation if that is correct. The patient failed to change his boots for several weeks while living outdoors, walking and riding bicycles. We have seen this before in nondiabetic, fairly healthy patients who are homeless and fail to change their boots for weeks and ended up with transmetatarsal amputations. This is an unfortunate injury for someone who lives outside and without a lot of resources. The possibility that there could have been some frostbite contributing cannot be excluded given our recent weather. The finding of Hafnia in blood cultures is very rare. Our resident on the service found an excellent article from [facility] that describes the largest experience with Hafnia and in that article only three people had pure positive blood cultures for Hafnia out of 80 patients with pure or mixed cultures from anywhere in the body. This is a relatively avirulent gram-negative cheng which lives in the gut and does not commonly cause disease except in very ill intensive care unit patients or immunosuppressed host. Its appearance in blood in any patients is very rare and doubly so in a patient such as this who does not seem to be immunosuppressed other than the fact he lives outside. The optimal treatment is not known, of course, as no one is ever going to do a randomized study with Hafnia, but we do have in vitro susceptibilities both from journal articles as well as from this particular isolate which turns out to be sensitive to Cipro as well as carbapenems and higher generation cephalosporins. RECOMMENDATIONS: 1. I would continue Cipro while he is in the hospital, but there is no reason this cannot be switched to oral tomorrow following his surgery. The dose would be 750 p.o. b.i.d. 2. I would continue with a second agent for the time being, and I would be inclined to use ertapenem. What scant literature there is suggests that a combo regimen might be indicated for especially severe disease and given that he is bacteremic I think we could make that argument. Will give the ertapenem in a dose of 1 g once a day to be given with the Cipro. 3. An echocardiogram will be needed. Hafnia endocarditis is very rare, but I think it is probably worth taking a look here in terms of the valve anatomy at least in this patient who has a significant murmur in association with this Hafnia bacteremia. Thank you very much for this consult.
[2016-07-13] MEDS ORDERED: MetoCLOpramide 5 mg/mL 2 mL Inj IVPUSH PRN (17:45)
[2016-07-13] MEDS ORDERED: Lactated Ringer's 1,000 ML IV SCH (17:45)
[2016-07-13] MEDS ORDERED: Phenylephrine 10,000 mCg/mL Inj IVPUSH PRN (17:45)
[2016-07-13] MEDS ORDERED: fentaNYL-PF 50 mCg/mL 2 mL Inj IVPUSH PRN (17:45)
[2016-07-13] MEDS ORDERED: Ondansetron 2 mg/mL 2 mL Inj IVPUSH PRN (17:45)
[2016-07-13] MEDS ORDERED: Lactated Ringer's 500 ML IV PRN (17:45)
[2016-07-13] MEDS ORDERED: EPHEDrine Sulfate 50 mg/mL Inj IVPUSH PRN (17:45)
[2016-07-13] MEDS ORDERED: Dexamethasone 4 mg/mL Inj IVPUSH PRN (17:45)
[2016-07-13] MEDS ORDERED: HYDROmorphone 1 mg/mL Inj IVPUSH PRN (17:45)
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
[2016-07-13 18:58] LABS: BASOPHILS % (AUTO) 0.5 % (0-3); EOSINOPHILS % (AUTO) 0.1 % (0-5); MONOCYTES % (AUTO) 8.1 % (4-12); Mean Corpuscular Hemoglobin 29.6 pg (27.0-35.0); Mean Corpuscular Volume 91.1 fL (81-100); NEUTROPHILS % (AUTO) 67.5 % (40-74); Platelet Count 465 bil/L (150-400)
--- NOTE | 2016-07-13 19:26 | PCM.PODPO ---
Podiatry Operative Report Date of Service: Jul 12, 2016 Date of Service Jul 13, 2016 Pre Operative Diagnosis Wet gangrenous necrosis bilateral lower extremity Sepsis secondary to severe foot infection bilateral lower extremity Multiple ulcerations bilateral lower extremity with recent bilateral partial foot amputation Post Operative Diagnosis Same as preoperative diagnosis Procedure Washout and debridement bilateral foot with revisional transmetatarsal amputation of the left lower extremity Surgeon Surgeon: Simone Song DPM Assistants: None Indication for Procedure Recent history bilateral partial foot amputation Findings Healthy bleeding tissue bilateral appendectomy dictation site with multiple bilateral lower extremity ulcerations no continued signs of infection or purulent drainage noted Details of Procedure Patient was identified in the preoperative holding area operative comorbidities and allergies were thoroughly discussed. Patient was transported into the operating room and placed on the operating room table in the normal supine position. Bilateral ankle block consisting of 20 mL of a one-to-one mixture of 1% lidocaine plain and half percent Marcaine with epinephrine was given. This patient was then prepped and draped in the normal aseptic technique. Attention was first made the left lower extremity. Inspection of the amputation site wound with exposed metatarsal revealed healthy bleeding tissue without signs of continued necrosis or purulent drainage. There is no continued signs of infection. The left worse over the wound was copiously flushed with large amounts of normal saline. A sagittal saw was utilized to resect to the midshaft of the metatarsals in the normal surgical technique. A large curette was then utilized to debride full-thickness with excision of all fibrotic and nonviable soft tissue of the dorsal ulcerations. Full-thickness excisional debridement was performed of the amputation site with removal of mild fibrotic slough. Post debridement the left transmetatarsal limitation site ulceration measures 12 cm x 6 cm x 1.5 cm in depth. #2 Vicryl suture was utilized to close subcutaneous tissue over exposed metatarsal following the amputation. Betadine soaked gauze was applied to all wounds of the left lower extremity and this wound was dressed with Kerlix and ABDs pads and a mildly compressive Quentin bandage. Attention was then paid to the right lower extremity the right lower extremity distal amputation site ulceration was flushed with copious amounts of normal saline as well as the dorsal ulceration and posterior heel ulceration. Full- thickness excisional debridement was performed of the posterior heel ulceration with removal of overlying eschar and all fibrotic and nonviable soft tissue. This debridement carried down to level of subcutaneous tissue and there is no exposed bone or tendon. This wound measures 4 cm x 3 cm x 0.3 cm in depth post debridement. Attention was then paid to the dorsum of the right medial foot and full-thickness excisional debridement was performed with a #10 blade with removal of all fibrotic and nonviable soft tissue. This wound extends to subcutaneous tissue without exposed bone or tendon there is no surrounding erythema and no malodor no signs of acute infection. Post debridement measurement of the right dorsal foot ulceration measures 5 cm x 4 cm x 0.3 cm in depth. Full-thickness excisional debridement was then performed with a #10 blade of the indications and ulceration. At this time no exposed bone is present there is no signs of abscess formation no purulent drainage is noted no surrounding erythema and no malodor no signs of acute infection healthy bleeding tissue except the majority of the wound bed with a moderate amount of fibrotic slough. Post debridement measurement of the right distal limitation site ulceration measures 11 cm x 6.5 cm x 1.5 cm in depth. All wounds of the right lower extremity are dressed with Betadine soaked gauze sterile 4 x 4 gauze and AVD pads Kerlix and a mildly compressive Quentin bandage. The patient was awoken by anesthesia and transported out of the operating room. No complications occurred during this procedure. Grafts, Implants: None Complications There were no periprocedural complications identified. Condition Stable Anesthetic Administered: MAC Catheters: None Output, Estimated Blood Loss: 50 Blood Admin during surgery: No Surgical Cast or Splint: None Surgical Specimen Removed: No Specimen sent to Pathology: No Post Operative Plan Transfer back to the floor when stable Restart inpatient medications per hospitalist service recommendation Continue IV antibiotic therapy Follow-up wound cultures Nonweightbearing bilateral lower extremity Plan for application of bilateral wound VAC within the next 48-72 hours Repeat wound cultures drawn in the OR today as well as a CBC and BMP Podiatry will continue to follow daily Simone Song DPM Jul 13, 2016 19:26
--- NOTE | 2016-07-13 19:26 | PCM.ANEP1 ---
Post Anesthesia Phase 1 PACU Phase 1 Assessment Date of Service: Jul 12, 2016 Vital Signs Vital Signs Date Time Temp Pulse Resp B/P Pulse Ox O2 Delivery O2 Flow Rate FiO2 07/13/16 17:28 36.8 82 18 116/72 96 Room Air Anesthetic Administered: MAC Level of Alertness: Awake, talking ENRIQUEZ's with Equal Strength: Yes Pain: No Pain Scale Score: 6 Nausea or Vomiting: No Oxygen Delivery: Room Air Lungs: Normal Air Movement Richy Tracy MD Jul 13, 2016 19:26
--- NOTE | 2016-07-13 19:26 | PCM.ANEP2 ---
Post Anesthesia Evaluation ASA/CMS Post Anesthesia VS in Patient's Normal Range?: Yes Resp Stable; Airway Patent?: Yes CV Function & Hydration Stable: Yes Mental Status Recovered?: Yes Pain control Satisfactory?: Yes N/V Control Satisfactory?: Yes Richy Tracy MD Jul 13, 2016 19:26
--- NOTE | 2016-07-14 05:48 | NUR ---
Sleeping Patient returned from I&D procedure c/o mild pain and exhaustion, ate 100% of dinner before sleeping through out the night. Requesting assistance with repositioning and pain medication this am. Continues to refuse lab draws, Vital sign and physical assessments.
--- NOTE | 2016-07-14 06:28 | NUR ---
Pt refused to have vitals taken, RN aware. Addendum: 07/14/16 at 0629 by JACOB MILLER CNA Amended: Links added.
[2016-07-14] MEDS: Insulin LISPRO 300 Unit/3 mL Inj SUBQ SCH ×4 (08:00→19:45)
[2016-07-14] MEDS: 0.9% Sodium Chloride 1,000 ML IV SCH ×3 (08:30→23:44)
[2016-07-14] MEDS: Ertapenem Inj 1,000 MG in 0.9% Sodium Chloride 50 ML IV SCH (10:05)
[2016-07-14] MEDS: Ciprofloxacin Inj 400 MG in IV Premix 1 EACH IV SCH ×2 (11:52→23:44)
[2016-07-14 11:58] VITALS: BP 109/68; PULSE 99; RESP 16; O2SAT 97
--- NOTE | 2016-07-14 12:09 | DRSVH ---
[facility] [address] [place] [address] Echocardiogram Report Name: ZHANG FORD Study Date: 07/14/2016 Height: 74 in Hospital Exam Location: [facility] Weight: 170 lb Gender: Male BSA: 2.0 m2 : 1965 Age: 51 yrs BP: 109/66 mmHg Reason For Study: BACTEREMIA, MURMUR Ordering Physician: HOSPITALIST SVHPerformed By: Job Kellogg Referring Physician: ISHMAEL NORTH Interpretation Summary 1. Normal left ventricular size, wall thickness and systolic function with an estimated EF of 60-65% Mildly elevated outflow tract velocities 2. Normal right ventricular size and systolic function 3. No significant valvular regurgitation. No valvular stenosis appreciated. Procedure: A two-dimensional transthoracic echocardiogram with color flow and Doppler was performed. The study quality was technically adequate. There is no prior echocardiogram noted for this patient. The heart rate ranged between 88-104 bpm during the study. Left Ventricle: There is normal left ventricular wall thickness. The left ventricle is normal in size. Mildly elevated LVOT velocities. The ejection fraction is estimated to be 60-65%. Left ventricular wall motion is normal. Right Ventricle: The right ventricle is normal in size, thickness and function. Atria: The left atrial size is normal. Right atrial size is normal. The interatrial septum is intact with no evidence for an atrial septal defect. Mitral Valve: The leaflets appear thin with normal excursion. There is trace mitral regurgitation. Aortic Valve: The aortic valve appears trileaflet. The aortic valve opens well. No aortic regurgitation is present. Tricuspid Valve: The leaflets appear mildly thickened in some views. There is a trace or physiologic amount of tricuspid regurgitation. The right ventricular systolic pressure is estimated at 26 mmHg assuming a right atrial pressure of 3 mm Hg. Pulmonic Valve: The pulmonic valve is not well visualized. There is no pulmonic valvular regurgitation. Great Vessels: The aortic root is normal size. The ascending aorta could not be visualized. The IVC is of normal diameter and collapses greater than 50% with a sniff. This suggests a low right atrial pressure of 3 mm Hg. Pericardium/ Pleura There is no pericardial effusion. There is no pleural effusion. MMode/2D Measurements & Calculations LVIDd: 4.2 cm RA long axis LVOT diam LVIDs: 3.2 cm LA A2 area: 13.7 cm FS: 23.8 % LA A4 area: 16.2 cm RA area AoV Opening IVSd: 0.81 cm LA length (vol): 4.0 cm LVPWd: 1.0 cm LA vol: 47.1 ml : 14.7 cm Ao root diam LA vol index RA vol: 39.9 ml: 3.0 cm RA : 23.2 ml/m2 : 19.7 mm2 LV arellano. diameter/BSA LV sys. diameter/BSA RVD1 (basal) TAPSE: 3.0 cm (cm/m^2): 2.1 (cm/m^2): 1.6 Doppler Measurements & Calculations Ao V2 max: 152.6 cm/secMV E max sung MV E/A: 1.0 TR max sung Ao max P.3 mmHg : 84.8 cm/sec Med Peak E' Sung : 241.0 cm/sec Ao mean P.6 mmHg MV A max sung TR max PG LVOT Max Sung : 82.6 cm/sec E/E' med: 11.7 : 23.2 mmHg : 140.9 cm/sec Lat Peak E' Sung PA V2 max IVORY(I,D): 3.0 cm : 131.5 cm/sec sev ratio: 0.96 E/E' lat: 8.7 PA mean PG E/e' average : 4.1 mmHg MV dec time: 0.17 sec Ao V2 mean LV V1 max PG PA V2 mean : 99.0 cm/sec : 98.4 cm/sec Ao V2 VTI LV V1 VTI: 21.5 cm IVORY(V,D): 2.9 cm2 IVORY indexed to [facility] (cm^2/m^2): 1.5 Reading Physician:12:08 PM
--- NOTE | 2016-07-14 15:19 | NUR ---
Social Work Continued discharge Planning: SW received phone call from NATI way who states that bedside assessment to take place tomorrow at 10am. [facility] Specialist following for [facility] swing bed, no beds available until Tuesday/next week vs [facility] caregiver services at [facility] or [facility]. SW to follow. PLAN: Discharge plan in progress. Patient homeless. SW following for possible [facility] swing bed vs [facility] or [facility] under NATI DE LA CRUZ
--- NOTE | 2016-07-14 15:50 | NUR ---
Pain/Patient care- Patient has refused to have blood sugar checks, insulin,and Lovenox injection. Does not want anything done that involves "a needle". He did take oral pain meds, but did not want Dilaudid IV, even though his pain level was 10/10 when Wound care applied wound vacs and changed dressings on his feet. He allowed me to do one set of vital signs and physical assessment, otherwise has been wanting to be left alone.
--- NOTE | 2016-07-14 18:00 | NUR ---
Wound Care Orders for placement of NPWT received from podiatry department. 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 1 day post op. Dressings removed, duoderm placed over ulcerations at left and right heels and dorsal wounds left and right. Black foam over amputation sites both left and right with pressure brought up to 175MMhg, continuous therapy a good seal was attained. pt losing patience by the time NPWT dressing was operational. Dressing change 07/16/16.
--- NOTE | 2016-07-14 18:25 | PCM.PNPOD ---
Subjective Date of Service: Jul 14, 2016 Date of Service: Jul 14, 2016 Visit Information: Reason for Visit Bilateral Foot Gangrenous Surgery/Surgery Date OUMOU TRANSMETATARSAL AMPUTATION Date of Admission: Jul 10, 2016 at 14:14 Subjective: Patient seen at bedside, covered in a tent-like setup with blankets, refusing exam, stating he was too tired from not getting any sleep. Objective Vital Sign - Last Date Time Temp Pulse Resp B/P Pulse Ox O2 Delivery O2 Flow Rate FiO2 07/14/16 11:58 36.8 99 16 109/68 97 Room Air 07/13/16 19:20 8 Intake and Output 07/13/16 07/13/16 07/14/16 Cumulative From/Thru 15:00 23:00 07:00 07/10/16 11:37 - 07/14/16 06:29 Intake Total 1377 ml 637 ml 20249 ml Output Total 525 ml 825 ml 6259 ml Balance 852 ml -188 ml 6287 ml Intake Oral 318 ml 4269 ml IV Total 1377 ml 319 ml 8277 ml Output Urine Total 475 ml 825 ml 5909 ml Estimated Blood Loss 50 ml 350 ml # Voids 6 # Bowel Movements 0 Result Diagram: 07/13/16 1845 07/13/16 1845 Lab Test 07/10/16 11:22 07/10/16 12:08 07/10/16 18:20 07/13/16 18:45 Magnesium Level 2.0mg/dL (1.6-2.6) Total Bilirubin 0.4mg/dL (0.0-1.2) Aspartate Amino Transf (AST/SGOT) 39U/L (0-50) Alanine Aminotransferase (ALT/SGPT) 35U/L (0-44) Alkaline Phosphatase 100U/L (25-150) Troponin T 0.010ug/L (0.0-0.011) Total Protein 7.3g/dL (6.4-8.4) Albumin 3.1g/dL (3.4-5.0) Prothrombin Time 13.3sec (8.1-12.5) Prothromb Time International Ratio 1.24ratio Lactic Acid Level 2.0mmol/L (0.4-2.0) Urine Color Yellow (YELLOW) Urine Appearance Slightly cloudy Urine pH 5.5 (5.0-8.0) Urine Specific [place] 1.025 (1.003-1.035) Urine Protein Negativemg/dL (NEG,TRACE) Urine Glucose (UA) Negativemg/dL (NEGATIVE) Urine Ketones 15mg/dL (NEGATIVE) Urine Occult Blood Large (NEGATIVE) Urine Nitrite Positive (NEGATIVE) Urine Bilirubin Negative (NEGATIVE) Urine Urobilinogen 1.0mg/dL (NORMAL) Urine Leukocyte Esterase Negative (NEGATIVE) Urine RBC 3-10/hpf (0-2) Urine WBC 0-5/hpf (0-5) Urine Epithelial Cells None/hpf (NONE-MOD) Urine Crystals None seen (NONE SEEN) Urine Bacteria Moderate/hpf (NONE-FEW) Urine Hyaline Casts None/lpf (NONE) Urine Granular Casts None seen (NONE SEEN) Urine Waxy Casts None seen (NONE SEEN) Urine Red Blood Cell Casts None seen (NONE SEEN) Urine White Blood Cell Casts None seen (NONE SEEN) Urine Mucus Present (None Seen) Urine Trichomonas None seen (NONE SEEN) Urine Yeast None (NONE SEEN) Urinalysis Comment None Urine Culture Reflexed Indicated White Blood Count 10.0th/mm3 (3.8-10.1) Red Blood Count 2.57mil/mm3 (4.40-5.80) Hemoglobin 7.6g/dL (13.8-17.2) Hematocrit 23.4% (41.0-50.0) Mean Corpuscular Volume 91.1fL (81-100) Mean Corpuscular Hemoglobin 29.6pg (27.0-35.0) Mean Corpuscular Hemoglobin Concent 32.5% (32.0-37.0) Red Cell Distribution Width 12.4% (12.3-15.4) Platelet Count 465bil/L (150-400) Neutrophils (%) (Auto) 67.5% (40-74) Lymphocytes (%) (Auto) 21.6% (14-46) Monocytes (%) (Auto) 8.1% (4-12) Eosinophils (%) (Auto) 0.1% (0-5) Basophils (%) (Auto) 0.5% (0-3) Hold Blue Top Tube Received (Received) Sodium Level 136mEq/L (134-144) Potassium Level 4.1mEq/L (3.5-5.2) Chloride Level 98mEq/L (97-108) Carbon Dioxide Level 28mmol/L (18-29) Blood Urea Nitrogen 6mg/dL (6-24) Creatinine 0.59mg/dL (0.76-1.27) Estimat Glomerular Filtration Rate 153mL/min (>59) Glucose Level 114mg/dL (60-99) Calcium Level 7.9mg/dL (8.5-10.1) Hold [place] Top Tube Received (Received) Hold Curiel Top Tube Received (Received) Vancomycin Level Trough 5.6mcg/mL Exam General: Alert, Oriented X3, Mild Distress (due to tiredness) Lungs: Normal Air Movement Lower Extremities: Bilateral: Edema localized (feet) Extremity cool Lower Extremity Pulses: Absent: Left Dorsalis Pedis Left Posterior Tibal Right Dorsalis Pedis (secondary to edema) Right Posterior Tibal Postop Sensory Motor: Motor 5/5 Podiatry WOUND : Incision General Appearence: Wound under dressing Dressing & Drainage Status: Intact Wound Drainage Type: Wound Vac Surgical Cast or Splint: None Assessment & Plan Problems: (1) Gangrene of foot Plan: Continue Wound VAC treatment to both feet. Pain management with PO oxycodone. IV antibiotics until bone is covered with tissue. Overnight schedule to facilitate rest/sleep and help with cooperation with treatment tomorrow. Status: Acute ICD Code: I96 Paula Vasquez DPM Jul 14, 2016 18:25
--- NOTE | 2016-07-14 18:30 | PCM.PNMED ---
Subjective Date of Service Jul 14, 2016 Subjective Patient was seen and examined today at bedside. Patient is still refusing labs and other monitoring blood work. Patient states that his pain is well controlled and feels that his I&D went well yesterday. Patient denies any chest pain, shortness of breath, nausea, vomiting, diarrhea, fevers. Exam Vital Signs Vital Sign - Last Date Time Temp Pulse Resp B/P Pulse Ox O2 Delivery O2 Flow Rate FiO2 07/14/16 11:58 36.8 99 16 109/68 97 Room Air 07/13/16 19:20 8 Intake and Output 07/13/16 07/13/16 07/14/16 Cumulative From/Thru 15:00 23:00 07:00 07/10/16 11:37 - 07/14/16 06:29 Intake Total 1377 ml 637 ml 53116 ml Output Total 525 ml 825 ml 6259 ml Balance 852 ml -188 ml 6287 ml Intake Oral 318 ml 4269 ml IV Total 1377 ml 319 ml 8277 ml Output Urine Total 475 ml 825 ml 5909 ml Estimated Blood Loss 50 ml 350 ml # Voids 6 # Bowel Movements 0 Exam Physical Exam: GEN: Patient was awake, alert, responding appropriately to questions HEENT: PERRLA, EOMI, Neck soft supple, trachea midline, 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 Patient able to move lower extremity with minimal difficulty. Neuro: CN II-XII grossly intact Psych: mood agitated and affect flat IVs and Medications Medications Reviewed: Medications were reviewed in detail Medications Current Medications Bupivacaine HCl/ Epinephrine Bitart 30 ml 30 ml STK-MED ONCE INFILTRATE Last administered on 07/13/16 17:40; Admin Dose 20 ML; Start 07/13/16 at 17:40; Stop 07/13/16 at 18:54; Status DC Ciprofloxacin Lactate 400 mg/ Premix 200 ml @ 200 mls/hr Q12H IV Last administered on 07/14/16 11:52; Admin Dose 200 MLS/HR; Start 07/13/16 at 11:30 Ertapenem/Sodium Chloride 50 ml @ 100 mls/hr Q24 IV Last administered on t 10:05; Admin Dose 100 MLS/HR; Start 07/13/16 at 16:25 Gentamicin Sulfate 240 mg STK-MED ONCE IRRIGATION Last administered on 17:41; Admin Dose 240 MG; Start 07/13/16 at 17:41; Stop 07/13/16 at 17:43; Status DC Lactated Ringer's 1,000 ml @ ud STK-MED ONCE IV Last administered on 07/13/16t 17:40; Start 07/13/16 at 17:40; Stop 07/13/16 at 17:43; Status DC Lactated Ringer's 1,000 ml @ ud STK-MED ONCE IV Last administered on 07/13/16 19:40; Start 07/13/16 at 19:40; Stop 07/13/16 at 19:43; Status DC Lidocaine HCl 30 ml 30 ml STK-MED ONCE INJ Last administered on 07/13/16 17:40 ; Admin Dose 20 ML; Start 07/13/16 at 17:40; Stop 07/13/16 at 17:43; Status DC Lab and Diagnostics Result Diagram: 07/13/16184407/13/161844 Microbiology Microbiology 07/10/16 Blood Culture - Final, Complete Hafnia Alvei 07/10/16 Urine Culture - Final, Complete Mixed Urogenital Beth 07/11/16 Gram Stain - Final, Resulted 07/11/16 Culture & Sensitivity - Preliminary, Resulted Insufficient growth, culture is reinc... 07/11/16 Anaerobic Culture, Resulted Pending Microbiology MANUEL CULTURE BLOOD Final 07/13/16-624 Organism 1 HAFNIA ALVEI GRAM STAIN RESULT GRAM NEGATIVE RODS BC BOTTLE Isolated from Anaerobic Bottle of Set Drawn DATE CALLED: 07/11/16 TIME CALLED: 0335 CALLED BY: LUCA FLOOR/DOCTOR: ART/GRETCHEN Stewart, RN BC READ BACK Y TYPE OF DRAW PERIPHERAL DRAW TIME OF POSITIVITY 0300 GRAM STAIN RESULT GRAM NEGATIVE RODS BC BOTTLE2 Isolated from Aerobic Bottle of Set Drawn DATE CALLED: 07/11/16 TIME CALLED: 0530 CALLED BY: CHARLOTTE FLOOR/DOCTOR: ART/GRETCHEN Stewart BC READ BACK Y TYPE OF DRAW PERIPHERAL DRAW TIME OF POSITIVITY 0450 ISOLATED FROM FOUR OF FOUR BOTTLES COLLECTED 07/10 1. BETITO Guillaume Interp --------- ------ * AMIKACIN <=2 S * AMPICILLIN R * AMPICILLIN/SULBACTAM R * CEFAZOLIN >=64 R * CEFEPIME <=1 S * CEFOXITIN R * CEFTRIAXONE <=1 S * CIPROFLOXACIN <=0.25 S * GENTAMICIN <=1 S Assessment & Plan 51 year old male homeless, w/ Sepsis due to bilateral forefeet wet gangrene s/p I and D bedside in ER Bilateral forefoot wet gangrene -- Stop vancomycin patient is refusing blood draws and unable to obtain a vancomycin trough. Switch patient to Cipro 750 mg twice a day by mouth as recommended by infectious disease -- Blood Cultures positive for Reeddelicia Alvei sensitive to Cipro -- Discontinue meropenem and replaced with ertapenem 1 g daily as per recommendations from infectious disease --IVF, UOP adequate -- Podiatry still following locations with bilateral I&D yesterday plan is to place a wound VAC within the next 48-72 hours Bacteremia -gram negative, +cx from 07/10 -- Blood Cultures positive for Sarai Alvei sensitive to Cipro -- Infectious disease following Anemia -- Most likely delusional secondary to surgery -- We will attempt to monitor as allowed by patient Elevated blood glucose -- Unable to obtain hemoglobin A1c, lipid panel as patient is still refusing any blood draws or needle sticks. It has been explained to the patient the importance of these tests the patient states that he understands and still refuses. Chronic aline dementia, unknown past medication - No chorea observed. 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 DVT prophylax: Lovenox has been prescribed however the patient is currently refusing Anticipated discharge planning: Patient is homeless and currently SNF has been recommended by podiatry. coordinator volunteer services is currently working on placement, patient is currently a high risk for possible future amputation. Patient has been difficult to work with SC is still refusing blood work. We will continue to work with patient for further workup as necessary. Pain Evaluation: Adequate Pain Control VTE Mechanical Devices: Intermittant Pneumatic CD Resuscitation Status: CPR: Attempt Resuscitation Kelli Carney DO Jul 14, 2016 18:30
--- NOTE | 2016-07-14 20:42 | NUR ---
Refusals Pt refuses all labs. Labs ordered for AM pt continues to refuse and has stated "NO." Labs for AM canceled at this time per pt request. Care continues
--- NOTE | 2016-07-15 00:14 | NUR ---
Agitation Patient increasingly agitated this shift requesting to be left alone to sleep. Care bundled to decrease visit in room. Wound vac in place with minimal drainage. IV running at this time with occasional occlusion difficulties. Patient refuses this parachute accessories attacher to arm to physically observe IV site, however visually the site is asymptomatic.
[2016-07-15] MEDS: Insulin LISPRO 300 Unit/3 mL Inj SUBQ SCH ×4 (01:08→22:00)
[2016-07-15] MEDS: Ertapenem Inj 1,000 MG in 0.9% Sodium Chloride 50 ML IV SCH (10:18)
[2016-07-15] MEDS: 0.9% Sodium Chloride 1,000 ML IV SCH ×2 (10:19→16:30)
--- NOTE | 2016-07-15 10:52 | NUR ---
Faxed referral to Ileana Peres at [facility] Bed unit. Updated SECTION WEAVER
[2016-07-15] MEDS: Ciprofloxacin Inj 400 MG in IV Premix 1 EACH IV SCH ×2 (11:30→23:30)
--- NOTE | 2016-07-15 12:13 | PROG NOTE ---
[address] [address] PROGRESS NOTE PATIENT: ZHANG FORD : 1965 MR#: [id number] ADMIT: 07/10/2016 JOB ID: [id number] DATE: 07/15/2016 INFECTIOUS DISEASE FOLLOWUP NOTE: REASON FOR FOLLOWUP: Hafnia bacteremia secondary to necrotic feet. INTERVAL HISTORY: Overnight, the patient has had many issues with the staff. His peripheral IV has infiltrated and is no longer working and he refuses to have it replaced or even pulled at this point. IV antibiotics are therefore on hold. The patient reports he is taking his oral meds, or at least some of them however. He states he will not allow for the nurses to clean him up, nor to change his bed linens, and he really does not want to be touched or to have any interventions at this point. He says he would like to leave the hospital but he realizes, given that both his forefeet were just amputated and he has wound VACs in place, that this is not likely in the near future. The patient tells me today he has no fevers or chills. He is not short of breath. He is enjoying the available food and he has minimal pain in his feet. 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 He is sitting up in bed and conversant, but resisted efforts at a physical exam, which I did in a limited way and only with his permission. He has been afebrile for several days. His temperature now 36.8, pulse 99, respiratory rate 16, blood pressure 109/68. He is saturating 97% on room air. Examination of the oral cavity is unremarkable. The lungs are clear, at least anteriorly. Cardiac tones without new murmur. There is an infiltrated IV in the left forearm which the patient will not allow me to manipulate or removed. The abdomen is essentially soft and nontender. He has had bilateral transmetatarsal amputations and wound VACs are present over the ends of both feet. LABORATORIES: Include a white count that has normalized at 10,000 two days ago. He is refusing blood draws now, so we have no more data. His creatinine is 0.59. His followup blood cultures are negative. The culture of the foot has yielded a gram-negative cheng to be identified. Meanwhile his blood cultures have yielded Hafnia, which we are currently treating. No additional radiographs are available. IMPRESSION: This case has become somewhat more difficult over the last couple days because of the patient's reluctance to receive IV antibiotics or have much in the way of nursing intervention. His echo shows no obvious valvular abnormalities and his followup blood cultures are negative, so I do not think he has Hafnia endocarditis, but rather believed it arose from his infected feet. There is very little in the literature about the appropriate treatment of Hafnia but I do think the combination of the ertapenem which we had been using plus oral Cipro would make the most sense. If the patient completely refuses the IV medication, we can probably just continue with the oral Cipro and I would advocate a course of 4-6 weeks. Given his homeless state, progressive Wilson's chorea, and bilateral TMAs, it seems likely the patient will need to be placed in a rehabilitation or residential facility rather than be allowed to return "home," as he is actually homeless at this point. RECOMMENDATIONS: 1. Continue Cipro 750 p.o. b.i.d. 2. If the patient will consent, I would give him 1 g a day of ertapenem at least for a few more days but it appears that this is not going to be allowed. 3. I think the patient could be transferred to a residential facility or rehab at almost any time but that he will probably need to be confined there for quite some time until his feet start to heal and his antibiotic course has been largely completed. I suspect the patient would not be terribly compliant with outpatient oral antibiotics even, given what we are seeing here.
--- NOTE | 2016-07-15 12:34 | NUR ---
IV/Assessment 1020 Pt's IV antibiotic started, but immediately started saying distal occlusion, pt declined to let me see IV site stating "it's fine, they checked it last night and it worked." Told pt I was concerned that it might be infiltrated and he said "I don't care, you can't take it out or put a new one in. I should just leave, no one is doing anything." IV disconnected, battery charger conveyor line and MD notified. loan review analyst able to talk with pt and removed IV. MD will change antibiotics to PO. Pt also declined to have an assessment done, will retry again later when pain medications have taken affect. Addendum: 07/15/16 at 1812 by NORMA TADEO RN Pt continued to decline any care this afternoon despite multiple attempts to do assessment. Pt states "want to be left alone to sleep." Is agreeable if you bring him snacks. Addendum: 07/15/16 at 181 by NORMA TADEO RN Pt needs frequent reminding that he needs to stay in bed and off feet. Asked for w/c so that he could get up to BR, reeducated pt that MD wants him on bedrest and that he can use bedpan.
--- NOTE | 2016-07-15 14:11 | NUR ---
Vital signs Pt Refused
--- NOTE | 2016-07-15 15:43 | NUR ---
[facility] [place],they can not accommodate wound vacs at this time. Updated PROPERTY MANAGEMENT SUPERVISOR and PROPERTY MANAGEMENT SUPERVISOR Air Export Agent
--- NOTE | 2016-07-15 20:06 | PCM.PNMED ---
Subjective Date of Service Jul 15, 2016 Subjective Patient was seen and examined at bedside. Patient is still very difficult and not allowing any blood work done. Patient states that his pain is well controlled. Exam Vital Signs Vital Sign - Last Date Time Temp Pulse Resp B/P Pulse Ox O2 Delivery O2 Flow Rate FiO2 07/14/16 11:58 36.8 99 16 109/68 97 Room Air 07/13/16 19:20 8 Intake and Output 07/14/16 07/14/16 07/15/16 Cumulative From/Thru 15:00 23:00 07:00 07/10/16 11:37 - 07/15/16 05:28 Intake Total 780 ml 585 ml 35377 ml Output Total 650 ml 1065 ml 7974 ml Balance 130 ml -480 ml 5937 ml Intake Oral 780 ml 585 ml 5634 ml IV Total 8277 ml Output Urine Total 650 ml 1065 ml 7624 ml Estimated Blood Loss 350 ml # Voids 6 # Bowel Movements 1 0 1 Exam Physical Exam: GEN: Patient was awake, alert, NAD HEENT: PERRLA, EOMI, Neck soft supple, trachea midline, nomocephalic/atraumatic , facial tics consistent with [place]'s disease CV: +S1/S2, RRR, no murmurs auscultated Respiratory: CTAB, no wheezes, rales, rhonchi GI: +bowel sounds x4, soft, compressible, non TTP EXT: no c/c/e, wound vac in place c/d/i Neuro: CN II-XII grossly intact Psych: mood and affect were agitated at patient's baseline IVs and Medications Medications Reviewed: Medications were reviewed in detail Lab and Diagnostics Result Diagram: 07/13/16184407/13/161844 Microbiology Microbiology 07/10/16 Blood Culture - Final, Complete Hafnia Alvei 07/10/16 Urine Culture - Final, Complete Mixed Urogenital Beth 07/11/16 Gram Stain - Final, Resulted 07/11/16 Culture & Sensitivity - Preliminary, Resulted Insufficient growth, culture is reinc... 07/11/16 Anaerobic Culture, Resulted Pending Microbiology MANUEL CULTURE BLOOD Final 07/13/16-0625 Organism 1 BETITO MORENO GRAM STAIN RESULT GRAM NEGATIVE RODS BC BOTTLE Isolated from Anaerobic Bottle of Set Drawn DATE CALLED: 07/11/16 TIME CALLED: 0335 CALLED BY: [facility] FLOOR/DOCTOR: ART/GRETCHEN Stewart, RN BC READ BACK Y TYPE OF DRAW PERIPHERAL DRAW TIME OF POSITIVITY 0300 GRAM STAIN RESULT GRAM NEGATIVE RODS BC BOTTLE2 Isolated from Aerobic Bottle of Set Drawn DATE CALLED: 07/11/16 TIME CALLED: 0530 CALLED BY: [place] FLOOR/DOCTOR: MAIA Stewart BC READ BACK Y TYPE OF DRAW PERIPHERAL DRAW TIME OF POSITIVITY 0450 ISOLATED FROM FOUR OF FOUR BOTTLES COLLECTED 07/10 1. BETITO MORENOMera M.I.C Interp --------- ------ * AMIKACIN <=2 S * AMPICILLIN R * AMPICILLIN/SULBACTAM R * CEFAZOLIN >=64 R * CEFEPIME <=1 S * CEFOXITIN R * CEFTRIAXONE <=1 S * CIPROFLOXACIN <=0.25 S * GENTAMICIN <=1 S Assessment & Plan 51 year old male homeless, w/ Sepsis due to bilateral forefeet wet gangrene s/p I and D bedside in ER Bilateral forefoot wet gangrene -- Stop vancomycin patient is refusing blood draws and unable to obtain a vancomycin trough. Switch patient to Cipro 750 mg twice a day by mouth as recommended by infectious disease -- Blood Cultures positive for Halfnia Alvei sensitive to Cipro -- Discontinue meropenem and replaced with ertapenem 1 g daily as per recommendations from infectious disease --IVF, UOP adequate -- Wound VAC in place Bacteremia -gram negative, +cx from 07/10 -- Blood Cultures positive for Halfnia Alvei sensitive to Cipro -- Infectious disease following Anemia -- Most likely delusional secondary to surgery -- We will attempt to monitor as allowed by patient Elevated blood glucose -- Unable to obtain hemoglobin A1c, lipid panel as patient is still refusing any blood draws or needle sticks. It has been explained to the patient the importance of these tests the patient states that he understands and still refuses. Chronic aline dementia, unknown past medication - No chorea observed. 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 DVT prophylax: Lovenox has been prescribed however the patient is currently refusing Anticipated discharge planning: Patient is homeless and currently SNF has been recommended by podiatry. dean of student services is currently working on placement, patient is currently a high risk for possible future amputation. Patient has been difficult to work with as he is still refusing blood work. We will continue to work with patient for further workup as necessary. VTE Mechanical Devices: Intermittant Pneumatic CD Resuscitation Status: CPR: Attempt Resuscitation Kelli Carney DO Jul 15, 2016 20:06
[2016-07-16] MEDS: 0.9% Sodium Chloride 1,000 ML IV SCH ×4 (00:10→20:11)
--- NOTE | 2016-07-16 06:25 | NUR ---
Refusals Pt refuses assessment, VS, fresh sheets or blankets, and blood glucose checks at HS. He requests food and PRN pain medication, and he did allow one VS check in the AM prior to a PRN pain pill. Pt has remained pleasant and not combative this shift, AOx2-3. No IV access per refusal, no ABX received this shift as none ordered PO- Hospitalist paged with no new orders. Pt did not threaten AMA this shift. No s/s of cardiac, respiratory, or GI distress. Will continue cares
[2016-07-16 06:35] VITALS: BP 109/71; PULSE 91; RESP 16; O2SAT 96
[2016-07-16] MEDS: Insulin LISPRO 300 Unit/3 mL Inj SUBQ SCH ×4 (07:49→20:10)
[2016-07-16] MEDS: Ertapenem Inj 1,000 MG in 0.9% Sodium Chloride 50 ML IV SCH (08:30)
--- NOTE | 2016-07-16 08:41 | NUR ---
MED REFUSALS Patient refused BG check, lovenox injection and refused to have another IV line started. Educated patient on importance of checking blood sugars for infection and risks of not have DVT prophylaxis, patient still declined stating, "No I'm not taking that, thanks for asking. " aware. Changed cipro antibiotic to PO. Will also notified ID .
--- NOTE | 2016-07-16 13:08 | NUR ---
pt. refused to have vitals taken at this time. pt. is non-compliant with most care. Addendum: 07/16/16 at 1309 by BISHNU MCDONOUGH CNA Amended: Links added.
--- NOTE | 2016-07-16 14:14 | PROG NOTE ---
[address] [address] PROGRESS NOTE PATIENT: ZHANG FORD : 1965 MR#: [id number] ADMIT: 07/10/2016 JOB ID: [id number] DATE: 07/16/2016 INFECTIOUS DISEASE FOLLOWUP NOTE: REASON FOR FOLLOWUP: Polymicrobial foot infection with hafnia bacteremia. INTERVAL HISTORY: The patient has had issues in engagement with healthcare workers over the past few days. Today, he is underneath his sheet and basically refuses to come out. He says he is tired and needs to be left alone. Recall that yesterday his IV was infiltrated, and we could not give any additional IV medicine. He was eventually persuaded to allow the IV to be extracted but not a new peripheral IV to be inserted. So, all IV medicines including his ertapenem have ended. Today, he tells me he feels fine but is very tired and prefers to stay under the sheet. His feet are, however, sticking out from under the sheet, and I was able to examine those. He denies fevers or chills. PHYSICAL EXAMINATION: Reveals an afebrile gentleman, temperature 36.7, pulse 91, respiratory rate 16, blood pressure 109/71. He is apparently in no acute distress but he is under his sheet. His feet have wound VACs present over the TMA sites on both feet, and these appear to be functioning well. There is no evidence for spreading cellulitis of the legs. LABORATORIES: There are no labs, as the patient refuses labs. We have not had any now for three days. The cultures are of interest, however. His foot cultures are now growing Proteus mirabilis and Morganella Morgagni. Blood cultures grew Hafnia alvei, a completely different organism. 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 The blood cultures grew the rare organism hafnia, whereas his feet have grown proteus and morganella. All of these organisms are luckily susceptible to Cipro, as the patient refuses IV antibiotics. RECOMMENDATIONS: 1. Will go ahead and discontinue the ertapenem from the order set, as the patient does not take it. 2. If possible, we would restart the ertapenem at some future date, as it is probably reasonable to have two drugs on board for treating morganella and would not be unreasonable for the hafnia, as well as probable anaerobes present in his feet. 3. For now, will continue with Cipro 750 p.o. b.i.d., which the patient reluctantly agrees to take at this point. 4. Total duration of Cipro therapy probably 4-6 weeks depending on how the patient does.
--- NOTE | 2016-07-16 14:20 | PCM.PNMED ---
Subjective Date of Service Jul 16, 2016 Subjective Patient was seen and examined. Patient refused to be seen and answer questions. Exam Vital Signs Vital Sign - Last Date Time Temp Pulse Resp B/P Pulse Ox O2 Delivery O2 Flow Rate FiO2 07/16/16 06:35 36.7 91 16 109/71 96 Room Air 07/13/16 19:20 8 Intake and Output 07/15/16 07/15/16 07/16/16 Cumulative From/Thru 15:00 23:00 07:00 07/10/16 11:37 - 07/16/16 05:39 Intake Total 700 ml 436 ml 18983 ml Output Total 850 ml 865 ml 9689 ml Balance -150 ml -429 ml 5358 ml Intake Oral 700 ml 436 ml 6770 ml IV Total 8277 ml Output Urine Total 850 ml 865 ml 9339 ml Estimated Blood Loss 350 ml # Voids 6 # Bowel Movements 1 0 2 Exam Lower extremities: Bilateral wound VAC in place no clubbing cyanosis or edema noted Patient refused further physical exam IVs and Medications Medications Reviewed: Medications were reviewed in detail Lab and Diagnostics Result Diagram: 07/13/16184407/13/161844 Microbiology Microbiology 07/10/16 Blood Culture - Final, Complete Hafnia Alvei 07/10/16 Urine Culture - Final, Complete Mixed Urogenital Beth 07/11/16 Gram Stain - Final, Resulted 07/11/16 Culture & Sensitivity - Preliminary, Resulted Insufficient growth, culture is reinc... 07/11/16 Anaerobic Culture, Resulted Pending Microbiology MANUEL CULTURE BLOOD Final 07/13/16-624 Organism 1 HAFNIA ALVEI GRAM STAIN RESULT GRAM NEGATIVE RODS BC BOTTLE Isolated from Anaerobic Bottle of Set Drawn DATE CALLED: 07/11/16 TIME CALLED: 0335 CALLED BY: [facility] FLOOR/DOCTOR: ATR/GRETCHEN Stewart RN BC READ BACK Y TYPE OF DRAW PERIPHERAL DRAW TIME OF POSITIVITY 0300 GRAM STAIN RESULT GRAM NEGATIVE RODS BC BOTTLE2 Isolated from Aerobic Bottle of Set Drawn DATE CALLED: 07/11/16 TIME CALLED: 0530 CALLED BY: [facility] FLOOR/DOCTOR: ART/GRETCHEN Stewart BC READ BACK Y TYPE OF DRAW PERIPHERAL DRAW TIME OF POSITIVITY 0450 ISOLATED FROM FOUR OF FOUR BOTTLES COLLECTED 07/10 1. BETITO MORENO M.I.C Interp --------- ------ * AMIKACIN <=2 S * AMPICILLIN R * AMPICILLIN/SULBACTAM R * CEFAZOLIN >=64 R * CEFEPIME <=1 S * CEFOXITIN R * CEFTRIAXONE <=1 S * CIPROFLOXACIN <=0.25 S * GENTAMICIN <=1 S Assessment & Plan 51 year old male homeless, w/ Sepsis due to bilateral forefeet wet gangrene s/p I and D bedside in ER Bilateral forefoot wet gangrene -- Stop vancomycin patient is refusing blood draws and unable to obtain a vancomycin trough. Switch patient to Cipro 750 mg twice a day by mouth as recommended by infectious disease -- Blood Cultures positive for Halfnia Alvei sensitive to Cipro -- Discontinue meropenem and replaced with ertapenem 1 g daily as per recommendations from infectious disease --IVF, UOP adequate -- Wound VAC in place Bacteremia -gram negative, +cx from 07/10 -- Blood Cultures positive for Halfnia Alvei sensitive to Cipro -- Infectious disease following Anemia -- Most likely delusional secondary to surgery -- We will attempt to monitor as allowed by patient Elevated blood glucose -- Unable to obtain hemoglobin A1c, lipid panel as patient is still refusing any blood draws or needle sticks. It has been explained to the patient the importance of these tests the patient states that he understands and still refuses. Chronic aline dementia, unknown past medication - No chorea observed. 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 DVT prophylax: Lovenox has been prescribed however the patient is currently refusing Anticipated discharge planning: Patient continues to refuse blood draws and even physical exams at this time. Case management is working on patient placement bilaterally. VTE Mechanical Devices: Intermittant Pneumatic CD Resuscitation Status: CPR: Attempt Resuscitation Kelli Craney DO Jul 16, 2016 14:20
--- NOTE | 2016-07-16 15:11 | NUR ---
ORAL ABO/PAIN MEDS Patient agreed to take oral antibiotics and requested pain medications for bilateral foot pain 03/06. Administered oxy 5mg and patient stated pain didn't decrease much with 1 tab, administered 2nd tab of 5mg oxy for pain relief. Wound vac dressings in place with good suction, suction set at 150mmHg. Refused BG checks, and Lovenox injections from nurse.
--- NOTE | 2016-07-16 16:20 | NUR ---
Social Work: Continued Discharge Planning: Latonya Mily, , came to evaluate the patient for COPE, but the patient refused the evaluation and refused to sign the paperwork. Latonya Antonio stated that she will complete patient's assessment with the information that she has and notify SW once assessment is complete. SW will continue to follow. Lexi Jones, ARMANDO, ACM
--- NOTE | 2016-07-16 17:49 | NUR ---
Wound Care Pt seen at bedside for care of amputations and other foot wounds. NPWT dressing taken down, good effect noted thus far with minimal maceration of periwound skin. Granulation tissue is evident in wound beds, drainage is minimal in NPWT canister (<150ml). Reapplied NPWT with black foam to both amputation sites. Pressure brought up to 175 mmHg and a good seal under continuous therapy was achieved. Will see pt for dressing change 07/19/16.
--- NOTE | 2016-07-16 18:03 | PCM.PNPOD ---
Subjective Date of Service: Jul 16, 2016 Date of Service: Jul 16, 2016 Visit Information: Reason for Visit Bilateral Foot Gangrenous Surgery/Surgery Date OUMOU TRANSMETATARSAL AMPUTATION Post-Op Day # Date of Admission: Jul 10, 2016 at 14:14 Hospital Day # Subjective: 51-year-old male evaluated at bedside in no acute distress. Patient recently underwent bilateral transmetatarsal indication for treatment of what gangrene. Patient is currently comfortable on wound VAC therapy. No new issues or complaints. Postop General: No Complaints Gastrointestinal: Good Appetite Objective Vital Sign - Last Date Time Temp Pulse Resp B/P Pulse Ox O2 Delivery O2 Flow Rate FiO2 07/16/16 06:35 36.7 91 16 109/71 96 Room Air 07/13/16 19:20 8 Intake and Output 07/15/16 07/15/16 07/16/16 Cumulative From/Thru 15:00 23:00 07:00 07/10/16 11:37 - 07/16/16 05:39 Intake Total 700 ml 436 ml 93293 ml Output Total 850 ml 865 ml 9689 ml Balance -150 ml -429 ml 5358 ml Intake Oral 700 ml 436 ml 6770 ml IV Total 8277 ml Output Urine Total 850 ml 865 ml 9339 ml Estimated Blood Loss 350 ml # Voids 6 # Bowel Movements 1 0 2 Result Diagram: 07/13/16 1845 07/13/16 1845 Lab Test 07/10/16 11:22 07/10/16 12:08 07/10/16 18:20 07/13/16 18:45 Magnesium Level 2.0mg/dL (1.6-2.6) Total Bilirubin 0.4mg/dL (0.0-1.2) Aspartate Amino Transf (AST/SGOT) 39U/L (0-50) Alanine Aminotransferase (ALT/SGPT) 35U/L (0-44) Alkaline Phosphatase 100U/L (25-150) Troponin T 0.010ug/L (0.0-0.011) Total Protein 7.3g/dL (6.4-8.4) Albumin 3.1g/dL (3.4-5.0) Prothrombin Time 13.3sec (8.1-12.5) Prothromb Time International Ratio 1.24ratio Lactic Acid Level 2.0mmol/L (0.4-2.0) Urine Color Yellow (YELLOW) Urine Appearance Slightly cloudy Urine pH 5.5 (5.0-8.0) Urine Specific [place] 1.025 (1.003-1.035) Urine Protein Negativemg/dL (NEG,TRACE) Urine Glucose (UA) Negativemg/dL (NEGATIVE) Urine Ketones 15mg/dL (NEGATIVE) Urine Occult Blood Large (NEGATIVE) Urine Nitrite Positive (NEGATIVE) Urine Bilirubin Negative (NEGATIVE) Urine Urobilinogen 1.0mg/dL (NORMAL) Urine Leukocyte Esterase Negative (NEGATIVE) Urine RBC 3-10/hpf (0-2) Urine WBC 0-5/hpf (0-5) Urine Epithelial Cells None/hpf (NONE-MOD) Urine Crystals None seen (NONE SEEN) Urine Bacteria Moderate/hpf (NONE-FEW) Urine Hyaline Casts None/lpf (NONE) Urine Granular Casts None seen (NONE SEEN) Urine Waxy Casts None seen (NONE SEEN) Urine Red Blood Cell Casts None seen (NONE SEEN) Urine White Blood Cell Casts None seen (NONE SEEN) Urine Mucus Present (None Seen) Urine Trichomonas None seen (NONE SEEN) Urine Yeast None (NONE SEEN) Urinalysis Comment None Urine Culture Reflexed Indicated White Blood Count 10.0th/mm3 (3.8-10.1) Red Blood Count 2.57mil/mm3 (4.40-5.80) Hemoglobin 7.6g/dL (13.8-17.2) Hematocrit 23.4% (41.0-50.0) Mean Corpuscular Volume 91.1fL (81-100) Mean Corpuscular Hemoglobin 29.6pg (27.0-35.0) Mean Corpuscular Hemoglobin Concent 32.5% (32.0-37.0) Red Cell Distribution Width 12.4% (12.3-15.4) Platelet Count 465bil/L (150-400) Neutrophils (%) (Auto) 67.5% (40-74) Lymphocytes (%) (Auto) 21.6% (14-46) Monocytes (%) (Auto) 8.1% (4-12) Eosinophils (%) (Auto) 0.1% (0-5) Basophils (%) (Auto) 0.5% (0-3) Hold Blue Top Tube Received (Received) Sodium Level 136mEq/L (134-144) Potassium Level 4.1mEq/L (3.5-5.2) Chloride Level 98mEq/L (97-108) Carbon Dioxide Level 28mmol/L (18-29) Blood Urea Nitrogen 6mg/dL (6-24) Creatinine 0.59mg/dL (0.76-1.27) Estimat Glomerular Filtration Rate 153mL/min (>59) Glucose Level 114mg/dL (60-99) Calcium Level 7.9mg/dL (8.5-10.1) Hold [place] Top Tube Received (Received) Hold [place] Top Tube Received (Received) Vancomycin Level Trough 5.6mcg/mL Exam General: Alert, Oriented X3, Mild Distress (due to tiredness) Lungs: Normal Air Movement Lower Extremities: Bilateral: Edema localized (feet) Extremity cool Lower Extremity Pulses: Absent: Left Dorsalis Pedis Left Posterior Tibal Right Dorsalis Pedis (secondary to edema) Right Posterior Tibal Postop Sensory Motor: Motor 5/5 Podiatry WOUND : Wound Location/Description Bilateral transmetatarsal infiltration sites or 100% granular with no signs of surrounding erythema moderate was drainage no exposed bone or tendon no signs of acute infection. Left dorsal foot ulcerations collectively measured 3 cm x 2 cm x 0.3 cm in depth there is no exposed bone or tendon no surrounding erythema and no signs of acute infection.. This wound is full-thickness to subcutaneous tissue Right dorsal foot ulceration measures 5 cm x 4.3 cm x 0.3 cm in depth no surrounding erythema is wounds are 100% fibrotic no malodor no signs of acute infection. This wound is full-thickness to subcutaneous tissue Right posterior heel ulceration 4.5 cm x 4 cm x 0.3 cm in depth this wound is 100% fibrotic there is no exposed bone or tendon. This wound is full-thickness to subcutaneous tissue. No malodor. No signs of acute infection Wound Drainage Type: Wound Vac Surgical Cast or Splint: None Assessment & Plan Impression Stable bilateral lower extremity ulcerations without signs of continued infection recent history bilateral transmetatarsal amputations Problems: (1) Gangrene of foot Plan: Patient evaluated at bedside today during dressing changes by the wound care service. No debridement necessary at this time. No immediate surgical intervention necessary. Due to severe soft tissue loss of the distal foot there is no opportunity for primary wound closure at this time and we will continue with local wound care and wound VAC therapy. Continue antibiotics per Dr. Vale recommendations This patient is to remain strictly nonweightbearing, I have discussed this issue with him at length today. I am moderately concerned that this patient is not going to adhere to his weightbearing restrictions. Due to this patient's necessity for local wound care with wound VAC dressing changes every 48-72 hours as well as continued antibiotic therapy I believe he would benefit from placement into a longterm facility. Podiatry will continue to follow this patient next visit and dressing change 07/19/2016 Status: Acute ICD Code: I96 Simone Song DPM Jul 16, 2016 18:03
--- NOTE | 2016-07-16 20:00 | NUR ---
7-7 shift Patient refused vital signs, RN is aware. Addendum: 07/16/16 at 2110 by FAVIO ZALDIVAR CNA Amended: Links added.
--- NOTE | 2016-07-17 02:11 | NUR ---
Refusal of All Care Pt will not allow vitals, will not allow blood sugar checks, and stated he did not want anybody in the room unless he uses his call light. He is hoarding food, refusing all care.
[2016-07-17 04:57] VITALS: BP 109/63; PULSE 95; RESP 18; O2SAT 95
[2016-07-17] MEDS: Insulin LISPRO 300 Unit/3 mL Inj SUBQ SCH ×4 (08:00→22:00)
[2016-07-17] MEDS: 0.9% Sodium Chloride 1,000 ML IV SCH ×2 (08:30→16:22)
--- NOTE | 2016-07-17 12:00 | PCM.PNMED ---
Subjective Date of Service Jul 17, 2016 Subjective Patient was seen and examined. Patient refused to be seen and answer questions. Exam Vital Signs Vital Sign - Last Date Time Temp Pulse Resp B/P Pulse Ox O2 Delivery O2 Flow Rate FiO2 07/17/16 04:57 36.6 95 18 109/63 95 Room Air 07/13/16 19:20 8 Intake and Output 07/16/16 07/16/16 07/17/16 Cumulative From/Thru 15:00 23:00 07:00 07/10/16 11:37 - 07/17/16 06:48 Intake Total 1112 ml 800 ml 35987 ml Output Total 200 ml 300 ml 63962 ml Balance 912 ml 500 ml 6770 ml Intake Oral 1112 ml 800 ml 8682 ml IV Total 0 ml 8277 ml Output Urine Total 200 ml 300 ml 9839 ml Estimated Blood Loss 350 ml # Voids 2 8 # Bowel Movements 1 3 Exam Lower extremities: Bilateral wound VAC in place no clubbing cyanosis or edema noted Patient refused further physical exam IVs and Medications Medications Reviewed: Medications were reviewed in detail Medications Current Medications Ciprofloxacin 750 mg BID@ PO Last administered on 07/17/16t 06:24; Admin Dose 750 MG; Start 07/16/16 at 09:10 Lab and Diagnostics Result Diagram: 07/13/16184407/13/161844 Microbiology Microbiology 07/10/16 Blood Culture - Final, Complete Hafnia Alvei 07/10/16 Urine Culture - Final, Complete Mixed Urogenital Beth 07/11/16 Gram Stain - Final, Resulted 07/11/16 Culture & Sensitivity - Preliminary, Resulted Insufficient growth, culture is reinc... 07/11/16 Anaerobic Culture, Resulted Pending Microbiology MANUEL CULTURE BLOOD Final 07/13/16-0625 Organism 1 HAFNIA ALVEI GRAM STAIN RESULT GRAM NEGATIVE RODS BC BOTTLE Isolated from Anaerobic Bottle of Set Drawn DATE CALLED: 07/11/16 TIME CALLED: 0335 CALLED BY: [facility] FLOOR/DOCTOR: ART/GRETCHEN Stewart, RN BC READ BACK Y TYPE OF DRAW PERIPHERAL DRAW TIME OF POSITIVITY 0300 GRAM STAIN RESULT GRAM NEGATIVE RODS BC BOTTLE2 Isolated from Aerobic Bottle of Set Drawn DATE CALLED: 07/11/16 TIME CALLED: 0530 CALLED BY: [facility] FLOOR/DOCTOR: ART/GRETCHEN Stewart BC READ BACK Y TYPE OF DRAW PERIPHERAL DRAW TIME OF POSITIVITY 0450 ISOLATED FROM FOUR OF FOUR BOTTLES COLLECTED 07/10 1. SEDAKATHERYN Guillaume Interp --------- ------ * AMIKACIN <=2 S * AMPICILLIN R * AMPICILLIN/SULBACTAM R * CEFAZOLIN >=64 R * CEFEPIME <=1 S * CEFOXITIN R * CEFTRIAXONE <=1 S * CIPROFLOXACIN <=0.25 S * GENTAMICIN <=1 S Assessment & Plan 51 year old male homeless, w/ Sepsis due to bilateral forefeet wet gangrene s/p I and D bedside in ER Bilateral forefoot wet gangrene -- Stop vancomycin patient is refusing blood draws and unable to obtain a vancomycin trough. Switch patient to Cipro 750 mg twice a day by mouth as recommended by infectious disease -- Blood Cultures positive for Sarai Alvei sensitive to Cipro -- Discontinue meropenem and replaced with ertapenem 1 g daily as per recommendations from infectious disease --IVF, UOP adequate -- Wound VAC in place podiatry following with wound VAC changes every 48-72 hours Bacteremia -gram negative, +cx from 07/10 -- Blood Cultures positive for Sarai Alvei sensitive to Cipro -- Infectious disease following Anemia -- Most likely delusional secondary to surgery -- We will attempt to monitor as allowed by patient Elevated blood glucose -- Unable to obtain hemoglobin A1c, lipid panel as patient is still refusing any blood draws or needle sticks. It has been explained to the patient the importance of these tests the patient states that he understands and still refuses. Chronic aline dementia, unknown past medication - No chorea observed. 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 DVT prophylax: Lovenox has been prescribed however the patient is currently refusing Anticipated discharge planning: Patient continues to refuse blood draws and even physical exams at this time. Case management is working on patient placement. VTE Mechanical Devices: Intermittant Pneumatic CD Resuscitation Status: CPR: Attempt Resuscitation Kelli Carney DO Jul 17, 2016 12:00
--- NOTE | 2016-07-17 17:58 | NUR ---
Pt refused to have his vitals taken on my shift. Addendum: 07/17/16 at 7379 by DHARMESH RODRIGUEZ CNA Amended: Links added.
--- NOTE | 2016-07-17 19:39 | NUR ---
Refusal of Care Patient continued to refuse care through the shift, declining assessments, blood glucose checks, turning and medications. Patient is able to turn self. Benefits of participating in care explained to patient, refusal continued. Care is ongoing.
--- NOTE | 2016-07-17 22:26 | NUR ---
VS Pt okayed for temp to be taken at this time, refused set of BP (RN in room/aware). Stated to RN pain was 9/10.
[2016-07-18] MEDS: 0.9% Sodium Chloride 1,000 ML IV SCH ×3 (00:30→16:30)
--- NOTE | 2016-07-18 06:06 | NUR ---
Patient care Patient has been refusing blood sugar checks throughout the night. Patient also refused to have his vitals done. Patient receiving 10mg Roxycodone for pain. Patient on room air with no IV access.
--- NOTE | 2016-07-18 06:20 | NUR ---
REF CARE Pt continues to REF ALL CARE with CLINICAL TRIAL COORDINATOR. Allowed to check temp X1, REF full set of VS when asked X2 per shift.
[2016-07-18] MEDS: Insulin LISPRO 300 Unit/3 mL Inj SUBQ SCH ×4 (08:00→22:00)
--- NOTE | 2016-07-18 08:57 | NUR ---
pt. refused to have vital signs taken at this time. Addendum: 07/18/16 at 0858 by BISHNU MCDONOUGH CNA Amended: Links added.
[2016-07-18 09:38] VITALS: RESP 19
--- NOTE | 2016-07-18 09:39 | NUR ---
Patient continues to refuse vitals signs. Addendum: 07/18/16 at 0940 by BISHNU MCDONOUGH CNA Amended: Links added.
[2016-07-18 14:12] VITALS: RESP 18
--- NOTE | 2016-07-18 14:51 | PCM.PNMED ---
Subjective Date of Service Jul 18, 2016 Subjective Patient was seen today patient refused to be examined. Patient is currently refusing to be examined by both nursing and physicians. Exam Vital Signs Vital Sign - Last Date Time Temp Pulse Resp B/P Pulse Ox O2 Delivery O2 Flow Rate FiO2 07/18/16 14:12 18 Room Air 07/17/16 22:26 36.9 07/17/16 04:57 95 109/63 95 07/13/16 19:20 8 Intake and Output 07/17/16 07/17/16 07/18/16 Cumulative From/Thru 15:00 23:00 07:00 07/10/16 11:37 - 07/18/16 06:18 Intake Total 840 ml 840 ml 65854 ml Output Total 800 ml 625 ml 13066 ml Balance 40 ml 215 ml 7025 ml Intake Oral 840 ml 840 ml 96686 ml IV Total 8277 ml Output Urine Total 800 ml 625 ml 80369 ml Estimated Blood Loss 350 ml # Voids 8 # Bowel Movements 0 3 Exam Gen.: Patient is in no acute distress, alert, awake, responding to questions Lungs: Bilateral chest expansion equal, patient was speaking in full sentences with no labored breathing Lower extremities: Bilateral wound VAC in place no clubbing cyanosis or edema noted Psychiatric: Mood and affect were agitated Patient refused further physical exam IVs and Medications Medications Reviewed: Medications were reviewed in detail Lab and Diagnostics Result Diagram: 07/13/16184407/13/161844 Microbiology Microbiology 07/10/16 Blood Culture - Final, Complete Hafnia Alvei 07/10/16 Urine Culture - Final, Complete Mixed Urogenital Beth 07/11/16 Gram Stain - Final, Resulted 07/11/16 Culture & Sensitivity - Preliminary, Resulted Insufficient growth, culture is reinc... 07/11/16 Anaerobic Culture, Resulted Pending Microbiology MANUEL CULTURE BLOOD Final 07/13/16-7213 Organism 1 HAFNIA ALVEI GRAM STAIN RESULT GRAM NEGATIVE RODS BC BOTTLE Isolated from Anaerobic Bottle of Set Drawn DATE CALLED: 07/11/16 TIME CALLED: 0335 CALLED BY: LUCA FLOOR/DOCTOR: ART/GRETCHEN Stewart RN BC READ BACK Y TYPE OF DRAW PERIPHERAL DRAW TIME OF POSITIVITY 0300 GRAM STAIN RESULT GRAM NEGATIVE RODS BC BOTTLE2 Isolated from Aerobic Bottle of Set Drawn DATE CALLED: 07/11/16 TIME CALLED: 0530 CALLED BY: [place] FLOOR/DOCTOR: ART/GRETCHEN Stewart BC READ BACK Y TYPE OF DRAW PERIPHERAL DRAW TIME OF POSITIVITY 0450 ISOLATED FROM FOUR OF FOUR BOTTLES COLLECTED 07/10 1. BETITO MORENO M.I.C Interp --------- ------ * AMIKACIN <=2 S * AMPICILLIN R * AMPICILLIN/SULBACTAM R * CEFAZOLIN >=64 R * CEFEPIME <=1 S * CEFOXITIN R * CEFTRIAXONE <=1 S * CIPROFLOXACIN <=0.25 S * GENTAMICIN <=1 S Assessment & Plan 51 year old male homeless, w/ Sepsis due to bilateral forefeet wet gangrene s/p I and D bedside in ER Bilateral forefoot wet gangrene -- Stop vancomycin patient is refusing blood draws and unable to obtain a vancomycin trough. Switch patient to Cipro 750 mg twice a day by mouth as recommended by infectious disease -- Blood Cultures positive for Reednia Alvei sensitive to Cipro -- Discontinue meropenem and replaced with ertapenem 1 g daily as per recommendations from infectious disease --IVF, UOP adequate -- Wound VAC in place podiatry following with wound VAC changes every 48-72 hours Bacteremia -gram negative, +cx from 07/10 -- Blood Cultures positive for Sarai Alvei sensitive to Cipro -- Infectious disease following Anemia -- Most likely delusional secondary to surgery -- We will attempt to monitor as allowed by patient Elevated blood glucose -- Unable to obtain hemoglobin A1c, lipid panel as patient is still refusing any blood draws or needle sticks. It has been explained to the patient the importance of these tests the patient states that he understands and still refuses. Chronic aline dementia, unknown past medication - No chorea observed. 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 DVT prophylax: Lovenox has been prescribed however the patient is currently refusing Anticipated discharge planning: Patient continues to refuse blood draws and even physical exams at this time. Case management is working on patient placement. Patient will most likely be approved for Medicare. Patient is still accepting oral medications at this time. VTE Mechanical Devices: Intermittant Pneumatic CD Resuscitation Status: CPR: Attempt Resuscitation Kelli Carney DO Jul 18, 2016 14:50
--- NOTE | 2016-07-18 19:38 | NUR ---
Refusal of Care, Pain Patient continues to refuse much of patient care during the shift, including turning, medications, assessments and blood glucose and most vital signs. Patient declines skin checks or close examination of his feet, despite eduction. Wound vac draining minimal fluid. Patient reports some pain in bilateral feet. Reports that ordered pain medication keeps pain at a tolerable level. Care is ongoing.
[2016-07-19] MEDS: 0.9% Sodium Chloride 1,000 ML IV SCH ×3 (00:27→16:30)
--- NOTE | 2016-07-19 00:43 | NUR ---
Refusal of Care The patient was adamant that the only care he wanted was pain medication and snacks. He refused to answer questions regarding any medical history . He did not make eye contact but demonstrated passive aggressive type of behavior when asked about care, blood glucose checks, hygiene. Pain medication was administered. VSS. Call light within reach.
[2016-07-19] MEDS: Insulin LISPRO 300 Unit/3 mL Inj SUBQ SCH ×4 (08:00→22:00)
--- NOTE | 2016-07-19 14:02 | NUR ---
REFUSE CARE P-Patient refusing care on assessments and blood sugar checks. I-Informed patient of importance of assessments and blood sugar checks. E- Patient continues to refuse above care. Patient is accepting pain medication, antibiotics and care from [facility] care nurse. Pain controlled by Oxycodone 5mg Q4, wound vac in place for bilateral feet, patient had bowel movement today. Patient not letting staff clean room, room appears dirty.
--- NOTE | 2016-07-19 15:49 | PROG NOTE ---
[address] [address] PROGRESS NOTE PATIENT: ZHANG FORD : 1965 MR#: [id number] ADMIT: 07/10/2016 JOB ID: [id number] DATE: 07/19/2016 REASON FOR FOLLOWUP: Polymicrobial infection, necrotic, bilateral feet, with Hafnia bacteremia. INTERVAL HISTORY: The patient is sitting up, having lunch, and is in no acute distress today. He reports that he has no fevers, no chills, minimal foot pain, no shortness of breath and no abdominal pain. He wonders if he can have a wheelchair to assist him with getting to the bathroom and back and forth. PHYSICAL: Reveals a comfortable gentleman. Temperature 36.9, pulse 95, respiratory rate 18, blood pressure 109/63. He is saturating well on room air and watching [employer]. He tells me he is interested in politics. The lungs are quite clear anteriorly. Cardiac tones: Regular rate and rhythm. The abdomen was benign. He has bilateral wound VACs on his amputated forefeet. LABORATORY: There are no labs as the patient has been declining labs for now almost six days. Recall that the cultures though from the foot grew Proteus and Morganella, both sensitive to Cipro, and the blood cultures grew Hafnia which was sensitive to Cipro. We have no new imaging. IMPRESSION: This is a difficult case of a patient with [place]'s chorea who failed to change his shoes for a couple months and ended up with necrosis of the distal feet. This required bilateral transmetatarsal amputation. At this point, the patient would probably benefit from some intravenous antibiotics such as ertapenem but is refusing blood draws or infusions and we are managing this polymicrobial infection with Cipro. The patient looks reasonably well from an overall clinical point of view, but we have no laboratories to follow. RECOMMENDATIONS: 1. Continue with Cipro at this point, with a plan to continue for 4-6 weeks. 2. Should the patient accept an IV, I would restart ertapenem as there is likely to be some anaerobes and other organisms we have not cultured and it may be reasonable to treat the Morganella at least with two drugs rather than one in the beginning. Thank you very much.
--- NOTE | 2016-07-19 17:02 | PCM.PNMED ---
Subjective Date of Service Jul 19, 2016 Subjective Patient was seen today at bedside. Patient was more cooperative with the physical exam. Patient still has difficulty accepting care and treatment from nursing, but the patient was more cooperative today. Patient states that he has no complaints at this time. Exam Vital Signs Vital Sign - Last Date Time Temp Pulse Resp B/P Pulse Ox O2 Delivery O2 Flow Rate FiO2 07/18/16 14:12 18 Room Air 07/17/16 22:26 36.9 07/17/16 04:57 95 109/63 95 07/13/16 19:20 8 Intake and Output 07/18/16 07/18/16 07/19/16 Cumulative From/Thru 15:00 23:00 07:00 07/10/16 11:37 - 07/19/16 05:50 Intake Total 1112 ml 749 ml 61835 ml Output Total 150 ml 350 ml 88808 ml Balance 962 ml 399 ml 8386 ml Intake Oral 1112 ml 749 ml 37678 ml IV Total 8277 ml Output Urine Total 150 ml 350 ml 14115 ml Estimated Blood Loss 350 ml # Voids 8 # Bowel Movements 0 3 Exam Physical Exam: GEN: Patient was awake, alert, responding appropriately to questions HEENT: PERRLA, EOMI, Neck soft supple, trachea midline, nomocephalic/atraumatic CV: +S1/S2, RRR, positive systolic murmur auscultated Respiratory: CTAB, no wheezes, rales, rhonchi GI: +bowel sounds x4, soft, compressible, non TTP EXT: no c/c/e, lower extremity amputation site clean dry and intact, no signs of infection, minimal bleeding, no signs of eschar at the surgical site. Neuro: CN II-XII grossly intact Psych: mood and affect were appropriate IVs and Medications Medications Reviewed: Medications were reviewed in detail Lab and Diagnostics Result Diagram: 07/13/16184407/13/161844 Microbiology Microbiology 07/10/16 Blood Culture - Final, Complete Hafnia Alvei 07/10/16 Urine Culture - Final, Complete Mixed Urogenital Beth 07/11/16 Gram Stain - Final, Resulted 07/11/16 Culture & Sensitivity - Preliminary, Resulted Insufficient growth, culture is reinc... 07/11/16 Anaerobic Culture, Resulted Pending Microbiology MANUEL CULTURE BLOOD Final 07/13/16-0625 Organism 1 BETITO MORENO GRAM STAIN RESULT GRAM NEGATIVE RODS BC BOTTLE Isolated from Anaerobic Bottle of Set Drawn DATE CALLED: 07/11/16 TIME CALLED: 0335 CALLED BY: LUCA FLOOR/DOCTOR: ART/GRETCHEN Stewart, RN BC READ BACK Y TYPE OF DRAW PERIPHERAL DRAW TIME OF POSITIVITY 0300 GRAM STAIN RESULT GRAM NEGATIVE RODS BC BOTTLE2 Isolated from Aerobic Bottle of Set Drawn DATE CALLED: 07/11/16 TIME CALLED: 0530 CALLED BY: [place] FLOOR/DOCTOR: ART/GRETCHEN Stewart BC READ BACK Y TYPE OF DRAW PERIPHERAL DRAW TIME OF POSITIVITY 0450 ISOLATED FROM FOUR OF FOUR BOTTLES COLLECTED 07/10 1. BETITO TIFFANIE M.I.C Interp --------- ------ * AMIKACIN <=2 S * AMPICILLIN R * AMPICILLIN/SULBACTAM R * CEFAZOLIN >=64 R * CEFEPIME <=1 S * CEFOXITIN R * CEFTRIAXONE <=1 S * CIPROFLOXACIN <=0.25 S * GENTAMICIN <=1 S Assessment & Plan 51 year old male homeless, w/ Sepsis due to bilateral forefeet wet gangrene s/p I and D bedside in ER Bilateral forefoot wet gangrene -- Continue Cipro 750 mg twice a day by mouth -- Blood Cultures positive for Halfnia Alvei sensitive to Cipro -- Wound VAC in place podiatry following -- Continue with regular wound care and wound VAC changes as prescribed Bacteremia -gram negative, +cx from 07/10 -- Blood Cultures positive for Halfnia Alvei sensitive to Cipro -- Infectious disease following Anemia -- Most likely delusional secondary to surgery -- We will attempt to monitor as allowed by patient Elevated blood glucose -- Unable to obtain hemoglobin A1c, lipid panel as patient is still refusing any blood draws or needle sticks. It has been explained to the patient the importance of these tests the patient states that he understands and still refuses. Chronic aline dementia, unknown past medication - No chorea observed. 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 DVT prophylax: Lovenox has been prescribed however the patient is currently refusing Anticipated discharge planning: Patient is still being difficult and refusing treatment. Today patient was admitted and agreed to have changed as well as have his room cleaned. It was explained to the patient is currently in his bedding needs to be cleaned and changed daily to prevent infection and the patient agreed with this. Will continue trying to convince the patient's to allow further care and monitoring. Psych has been consulted as well to possibly help with further treatment of the patient is maybe some underlying untreated psychiatric issues. In the meantime case management continues to try and find placement for the patient. VTE Mechanical Devices: Intermittant Pneumatic CD Resuscitation Status: CPR: Attempt Resuscitation Kelli Carney DO Jul 19, 2016 17:02
--- NOTE | 2016-07-19 18:34 | NUR ---
Wound Care NPWT dressings taken down and new dressing placed. Wounds are granular and stable, drainage was 250 ML sanguineous in canister. Fair seal attained at 175 mmHg and continuous therapy. left heel wound dressed with duoderm and right heel wound dressed with collagen based dressing and mepilex foam. Dr Song present at dressing change. Pt tolerated dressing change well and allowed a dressing change while he was up to a chair, mod A of one. Next dressing change 07/22.
--- NOTE | 2016-07-20 00:10 | NUR ---
pain medicated x 2 with oxycodone. did take oral abx. agreed to get oob in order to have bed linens changed. refusing all other care.
[2016-07-20] MEDS: 0.9% Sodium Chloride 1,000 ML IV SCH ×3 (00:30→16:07)
[2016-07-20 04:49] VITALS: BP 95/69; PULSE 67; RESP 18; O2SAT 95
[2016-07-20] MEDS: Insulin LISPRO 300 Unit/3 mL Inj SUBQ SCH ×4 (07:37→22:00)
--- NOTE | 2016-07-20 08:55 | NUR ---
Refused assessment and blood glucose check Pt. refused physical assessment and blood glucose check this morning. He stated, "NO! I might let you when I am in a better mood." Addendum: 07/20/16 at 1746 by ANGUS BO RN Approached pt. multiple times this shift. He repeatedly declined nursing care. He was isolative in room. He called for drinks/food and pain relievers. Dr. Song came to visit him this evening. Doctor Song offered him skin graft procedure to close his foot wounds. Benefits of the procedures were given (faster healing time, earlier discharge). Pt. declined the procedure at this times.
[2016-07-20 09:43] VITALS: RESP 22
--- NOTE | 2016-07-20 12:43 | PCM.PNPOD ---
Subjective Date of Service: Jul 19, 2016 Date of Service: Jul 19, 2016 Visit Information: Reason for Visit Bilateral Foot Gangrenous Surgery/Surgery Date OUMOU TRANSMETATARSAL AMPUTATION Post-Op Day # Date of Admission: Jul 10, 2016 at 14:14 Hospital Day # Subjective: 51-year-old male evaluated resting comfortably in bed with recent history of bilateral transmetatarsal amputation for treatment of bilateral wet gangrene. Patient denies any new issues or complaints today he is currently being treated with wound VAC therapy. Patient is evaluated at the time of wound VAC dressing change performed by the wound care service. Postop General: No Complaints Gastrointestinal: Good Appetite Pain Management: PO Objective Vital Sign - Last Date Time Temp Pulse Resp B/P Pulse Ox O2 Delivery O2 Flow Rate FiO2 07/20/16 09:43 36.5 22 Room Air 07/20/16 04:49 67 95/69 95 Intake and Output 07/19/16 07/19/16 07/20/16 Cumulative From/Thru 15:00 23:00 07:00 07/10/16 11:37 - 07/20/16 06:17 Intake Total 1200 ml 586 ml 04427 ml Output Total 1000 ml 400 ml 93178 ml Balance 200 ml 186 ml 8772 ml Intake Oral 1200 ml 586 ml 40269 ml IV Total 8277 ml Output Urine Total 1000 ml 400 ml 97468 ml Estimated Blood Loss 350 ml # Voids 8 # Bowel Movements 1 4 Lab Test 07/10/16 11:22 07/10/16 12:08 07/10/16 18:20 07/13/16 18:45 Magnesium Level 2.0mg/dL (1.6-2.6) Total Bilirubin 0.4mg/dL (0.0-1.2) Aspartate Amino Transf (AST/SGOT) 39U/L (0-50) Alanine Aminotransferase (ALT/SGPT) 35U/L (0-44) Alkaline Phosphatase 100U/L (25-150) Troponin T 0.010ug/L (0.0-0.011) Total Protein 7.3g/dL (6.4-8.4) Albumin 3.1g/dL (3.4-5.0) Prothrombin Time 13.3sec (8.1-12.5) Prothromb Time International Ratio 1.24ratio Lactic Acid Level 2.0mmol/L (0.4-2.0) Urine Color Yellow (YELLOW) Urine Appearance Slightly cloudy Urine pH 5.5 (5.0-8.0) Urine Specific [place] 1.025 (1.003-1.035) Urine Protein Negativemg/dL (NEG,TRACE) Urine Glucose (UA) Negativemg/dL (NEGATIVE) Urine Ketones 15mg/dL (NEGATIVE) Urine Occult Blood Large (NEGATIVE) Urine Nitrite Positive (NEGATIVE) Urine Bilirubin Negative (NEGATIVE) Urine Urobilinogen 1.0mg/dL (NORMAL) Urine Leukocyte Esterase Negative (NEGATIVE) Urine RBC 3-10/hpf (0-2) Urine WBC 0-5/hpf (0-5) Urine Epithelial Cells None/hpf (NONE-MOD) Urine Crystals None seen (NONE SEEN) Urine Bacteria Moderate/hpf (NONE-FEW) Urine Hyaline Casts None/lpf (NONE) Urine Granular Casts None seen (NONE SEEN) Urine Waxy Casts None seen (NONE SEEN) Urine Red Blood Cell Casts None seen (NONE SEEN) Urine White Blood Cell Casts None seen (NONE SEEN) Urine Mucus Present (None Seen) Urine Trichomonas None seen (NONE SEEN) Urine Yeast None (NONE SEEN) Urinalysis Comment None Urine Culture Reflexed Indicated White Blood Count 10.0th/mm3 (3.8-10.1) Red Blood Count 2.57mil/mm3 (4.40-5.80) Hemoglobin 7.6g/dL (13.8-17.2) Hematocrit 23.4% (41.0-50.0) Mean Corpuscular Volume 91.1fL (81-100) Mean Corpuscular Hemoglobin 29.6pg (27.0-35.0) Mean Corpuscular Hemoglobin Concent 32.5% (32.0-37.0) Red Cell Distribution Width 12.4% (12.3-15.4) Platelet Count 465bil/L (150-400) Neutrophils (%) (Auto) 67.5% (40-74) Lymphocytes (%) (Auto) 21.6% (14-46) Monocytes (%) (Auto) 8.1% (4-12) Eosinophils (%) (Auto) 0.1% (0-5) Basophils (%) (Auto) 0.5% (0-3) Hold Blue Top Tube Received (Received) Sodium Level 136mEq/L (134-144) Potassium Level 4.1mEq/L (3.5-5.2) Chloride Level 98mEq/L (97-108) Carbon Dioxide Level 28mmol/L (18-29) Blood Urea Nitrogen 6mg/dL (6-24) Creatinine 0.59mg/dL (0.76-1.27) Estimat Glomerular Filtration Rate 153mL/min (>59) Glucose Level 114mg/dL (60-99) Calcium Level 7.9mg/dL (8.5-10.1) Hold Shiner Top Tube Received (Received) Hold Curiel Top Tube Received (Received) Vancomycin Level Trough 5.6mcg/mL Exam General: Alert, Oriented X3, Mild Distress (due to tiredness) Lungs: Normal Air Movement Lower Extremities: Bilateral: Edema localized (feet) Extremity cool Lower Extremity Pulses: Absent: Left Dorsalis Pedis Left Posterior Tibal Right Dorsalis Pedis (secondary to edema) Right Posterior Tibal Postop Sensory Motor: Motor 5/5 Podiatry WOUND : Wound Location/Description Full-thickness transmetatarsal amputation site wound without exposed bone with minimal exposed tendon in the wound bed appears 100% granular with healthy bleeding tissue. This wound measures 11.5 cm x 5.5 cm there is no surrounding erythema and no signs of acute infection. Full-thickness dorsal ulcerations of the left first metatarsal without exposed bone or tendon no surrounding erythema and no signs of acute infection. The wound that is 80% fibrotic with 20% red from granulation tissue there is no malodor no noted drainage no signs of acute infection. Collective ulcerations which are circular in nature measured 2.8 cm x 1.4 cm x 0.2 cm in depth. Left posterior medial heel ulceration which is superficial without extension into subcutaneous tissue there is no exposed bone or tendon no malodor no signs of acute infection. Right posterior heel ulceration full-thickness to subcutaneous tissue without exposed bone or tendon there is no surrounding erythema no malodor no signs of acute infection this wound measures 3.5 cm x 3 cm x 0.3 cm in depth Right transmetatarsal indentation site ulceration full-thickness to subcutaneous tissue without exposed bone minimally exposed tendon remnants. There is no surrounding erythema no signs of acute infection the wound base is 100% granular and consisting of healthy bleeding tissue there is mild serosanguineous drainage. This wound measures 11 cm x 5 cm Dorsal right foot ulceration full-thickness to subcutaneous tissue without exposed bone or tendon this wound measures 4.7 cm x 3.8 cm x 0.3 cm in depth there is no surrounding erythema no signs of acute infection his wound is 80% fibrotic with 20% red firm granulation tissue. Wound Drainage Type: Wound Vac Surgical Cast or Splint: None Assessment & Plan Impression Stable bilateral lower extremity ulcerations without continued signs of infection Problems: (1) Gangrene of foot Plan: Patient appears to be doing quite well at this time. Wound VAC dressings were changed today and will be reapplied at this time we will continue with 175 mm of continuous pressure bilaterally. I have discussed with this patient that he may benefit from skin grafting of his amputation site wounds as they are likely to take a significant amount of time to heal conservatively and there is no likelihood of primary wound closure at this time. I will consider a consultation to plastic surgery for potential wound grafting bilateral lower extremity. Nonweightbearing bilateral lower extremity Patient would benefit from prolonged wound care in a snf facility upon discharge. Patient is not stable for discharge to the street as he is homeless. Continue antibiotics per Dr. Vale recommendation Status: Acute ICD Code: I96 Simone Song DPM Jul 20, 2016 12:43
--- NOTE | 2016-07-20 13:24 | PROG NOTE ---
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 INTERVAL HISTORY: The patient is in a fairly good mood today. Though he declines a complete exam, he does report that he is not having fevers, chills, or sweats. He reports that he is eating well and in general thinks he is improving. PHYSICAL EXAMINATION: Reveals an afebrile gentleman, temperature 36.5, blood pressure 95/69. He is in no acute distress. He has very poor dentition. I was not able to examine his torso. His feet are still in wound VACs. These appear free of associated cellulitis or drainage. DIAGNOSTIC DATA: No recent labs are available, as the patient does not allow them. Culture of the foot, however, was done yesterday by Suresh of wound management when he changed the wound VACs on the feet, and that culture shows no polys, no organisms, and there is no growth so far. IMPRESSION: This is a complex patient with a polymicrobial foot infection and Hafnia bacteremia. This is all occurring in the setting of a patient with [place]'s chorea who is progressing in his disease and has some degree of cognitive or psychological impairment on the basis of disease which is interfering to some degree of his care. It is also worth noting, he got these foot lesions because he did not change his shoe wear for a couple of months until basically the front portions of both his feet had rotted. RECOMMENDATIONS: 1. Will continue with oral Cipro, which we are not allowed to use IV at this point with this patient who refuses. 2. I think the Cipro should continue for several weeks. 3. I will see the patient again in a couple days, as there are very little in the way of acute processes going on here.
--- NOTE | 2016-07-20 14:36 | NUR ---
NUTRITION FOLLOW-UP: ASSESS: 51 YO homeless male with sepsis from bilateral forefoot wet gangrene. Pt is s/p bilateral transmetatarsal amputation with multiple lower extremity ulcerations, currently with wound vacs in place. Pt with good PO intake. PMHx: Bethel, possible diabetes. LABS: Reviewed. Cr .59, Glu 114, Ca 7.9. MEDS: Reviewed. GI: BM x 1 (07/19) SKIN: bilateral transmetatarsal amputation with multiple lower extremity ulcerations, wound vac in place. Followed by podiatry and wound care. CURRENT WT: 75.7 kg. Admit wt: 77.3 kg. DIET: Diabetic, Glucerna BID and Eliseo BID. PO intake 100% of meals. EST. NEEDS: 7592-4823 kcals (30-35 kcals/kg BW), 90-115 g protein (1.2-1.5 g/kg BW) NUTRITION DIAGNOSIS: 1.) Increased nutrient needs related to increased demand for nutrients for wound healing as evidenced by bilateral transmetatarsal amputation wounds and multiple lower extremity ulcerations--PERSISTS. NUTRITION INTERVENTION: 1.) Continue to send Eliseo and Glucerna BID. MONITOR / EVAL: PO intake, labs, wound healing, nutritional status. Follow per low nutritional risk guidelines.
--- NOTE | 2016-07-20 15:07 | NUR ---
pt refused vitals at this time Addendum: 07/20/16 at 1507 by BISHNU MCDONOUGH CNA Amended: Links added.
--- NOTE | 2016-07-20 15:22 | PCM.PNMED ---
Subjective Date of Service Jul 20, 2016 Subjective Patient was seen and examined today. Patient was more receptive to being examined today. Patient denied any chest pain shortness of breath. Exam Vital Signs Vital Sign - Last Date Time Temp Pulse Resp B/P Pulse Ox O2 Delivery O2 Flow Rate FiO2 07/20/16 09:43 36.5 22 Room Air 07/20/16 04:49 67 95/69 95 Intake and Output 07/19/16 07/19/16 07/20/16 Cumulative From/Thru 15:00 23:00 07:00 07/10/16 11:37 - 07/20/16 06:17 Intake Total 1200 ml 586 ml 14821 ml Output Total 1000 ml 400 ml 44798 ml Balance 200 ml 186 ml 8772 ml Intake Oral 1200 ml 586 ml 02335 ml IV Total 8277 ml Output Urine Total 1000 ml 400 ml 87182 ml Estimated Blood Loss 350 ml # Voids 8 # Bowel Movements 1 4 Exam Physical Exam: GEN: Patient was awake, alert, responding appropriately to questions HEENT: PERRLA, EOMI, Neck soft supple, trachea midline, nomocephalic/atraumatic CV: +S1/S2, RRR, positive systolic murmur auscultated Respiratory: CTAB, no wheezes, rales, rhonchi GI: +bowel sounds x4, soft, compressible, non TTP EXT: Wound VAC in place bilateral extremities no signs of erythema or edema noted Neuro: CN II-XII grossly intact Psych: mood and affect were appropriate IVs and Medications Medications Reviewed: Medications were reviewed in detail Lab and Diagnostics Microbiology Microbiology 07/10/16 Blood Culture - Final, Complete Hafnia Alvei 07/10/16 Urine Culture - Final, Complete Mixed Urogenital Beth 07/11/16 Gram Stain - Final, Resulted 07/11/16 Culture & Sensitivity - Preliminary, Resulted Insufficient growth, culture is reinc... 07/11/16 Anaerobic Culture, Resulted Pending Microbiology MANUEL CULTURE BLOOD Final 07/13/16-0625 Organism 1 BETITO MORENO GRAM STAIN RESULT GRAM NEGATIVE RODS BC BOTTLE Isolated from Anaerobic Bottle of Set Drawn DATE CALLED: 07/11/16 TIME CALLED: 0335 CALLED BY: LUCA FLOOR/DOCTOR: RAT/GRETCHEN Stewart, RN BC READ BACK Y TYPE OF DRAW PERIPHERAL DRAW TIME OF POSITIVITY 0300 GRAM STAIN RESULT GRAM NEGATIVE RODS BC BOTTLE2 Isolated from Aerobic Bottle of Set Drawn DATE CALLED: 07/11/16 TIME CALLED: 0530 CALLED BY: CHARLOTTE FLOOR/DOCTOR: ART/GRETCHEN Stewart BC READ BACK Y TYPE OF DRAW PERIPHERAL DRAW TIME OF POSITIVITY 0450 ISOLATED FROM FOUR OF FOUR BOTTLES COLLECTED 07/10 1. BETITO Guillaume Interp --------- ------ * AMIKACIN <=2 S * AMPICILLIN R * AMPICILLIN/SULBACTAM R * CEFAZOLIN >=64 R * CEFEPIME <=1 S * CEFOXITIN R * CEFTRIAXONE <=1 S * CIPROFLOXACIN <=0.25 S * GENTAMICIN <=1 S Assessment & Plan 51 year old male homeless, w/ Sepsis due to bilateral forefeet wet gangrene s/p I and D bedside in ER Bilateral forefoot wet gangrene -- Continue Cipro 750 mg twice a day by mouth -- Blood Cultures positive for Sarai Alvei sensitive to Cipro -- Wound VAC in place podiatry following -- Continue with regular wound care and wound VAC changes as prescribed Bacteremia -gram negative, +cx from 07/10 -- Blood Cultures positive for Sarai Alvei sensitive to Cipro -- Infectious disease following Anemia -- Most likely delusional secondary to surgery -- We will attempt to monitor as allowed by patient Elevated blood glucose -- Unable to obtain hemoglobin A1c, lipid panel as patient is still refusing any blood draws or needle sticks. It has been explained to the patient the importance of these tests the patient states that he understands and still refuses. Chronic aline dementia, unknown past medication - No chorea observed. 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 DVT prophylax: Lovenox has been prescribed however the patient is currently refusing Anticipated discharge planning: Patient is still being difficult and refusing treatment. The patient has some sort of fear of needles and will not allow any blood glucose monitoring normal he will allow any blood test to be taken in order to monitor his A1c, white cell count, or lipids. The patient was on ertapenem however since he lost IV access he has not been able to do his full course of ertapenem however has remained on oral Cipro 750 mg twice a day. The patient's bacteria Halfnia Alvei is sensitive to Cipro. The patient has been afebrile and there are no signs of erythema or infection at the wound site so clinically it looks that he is free from infection. We will continue to monitor for any infectious clinical signs as the patient has limited us in this respect. 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 Because the patient has been extremely difficult to work with and refusing both treatments and examinations it was felt that the patient should have a psych consult. Would appreciate psychiatric evaluation and treatment recommendations. VTE Mechanical Devices: Intermittant Pneumatic CD Resuscitation Status: CPR: Attempt Resuscitation Kelli Carney DO Jul 20, 2016 12:05
--- NOTE | 2016-07-20 16:25 | CONS ---
[address] [address] CONSULTATION REPORT PATIENT: ZHANG FORD : 1965 MR#: [id number] ADMIT: 07/10/2016 JOB ID: [id number] DATE OF ADMISSION: 07/10/2016 DATE OF SERVICE: 07/19/2016 and 07/20/2016 CLINICAL NOTE: I attempted to engage the patient in a psychiatric consultation on both July 19 and . He is not responding to any of my questions and is essentially mute. A consultation was requested to identify a potential psychiatric disorder and identify potential ways to increase compliance and decrease combativeness. I will try a 3rd attempt tomorrow. I was able to get part of the consultation together from chart review. No further recommendations at this time. I will attempt to engage the client in the interview again tomorrow.
[2016-07-21] MEDS: 0.9% Sodium Chloride 1,000 ML IV SCH ×3 (00:19→16:30)
[2016-07-21] MEDS: Insulin LISPRO 300 Unit/3 mL Inj SUBQ SCH ×4 (08:00→22:00)
--- NOTE | 2016-07-21 08:32 | NUR ---
Compliance Patient refused all blood sugar checks this shift. Patient did agree to take his pain medication and PO antibiotics. Patient refused nearly all other cares.
[2016-07-21 17:07] VITALS: BP 120/76
--- NOTE | 2016-07-21 18:20 | NUR ---
compliance patient refusing most care today. 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 patient was receptive with taking PO antibiotic and pain medications. patient asked that staffing program manager not check on him, "I will use the call light if I need anything". continue to monitor and offer assistance as needed.
--- NOTE | 2016-07-21 19:41 | PCM.PNMED ---
Subjective Date of Service Jul 21, 2016 Subjective Patient would not give me any information on how he is feeling other than he does not like having the wound vacs on his feet. When I tried to talk to him about his noncompliance and that he will not allow any needle sticks he will not allow any blood draws and he refused surgery this morning he told me to " get the f--- out of his room". When asked if I could examine him he refused. He continued to insist that I "get the f--- out of his room". Exam Vital Signs Vital Sign - Last Date Time Temp Pulse Resp B/P Pulse Ox O2 Delivery O2 Flow Rate FiO2 07/21/16 17:07 36.5 120/76 07/20/16 09:43 22 Room Air 07/20/16 04:49 67 95 Intake and Output 07/20/16 07/20/16 07/21/16 Cumulative From/Thru 15:00 23:00 07:00 07/10/16 11:37 - 07/21/16 07:00 Intake Total 1500 ml 672 ml 89078 ml Output Total 750 ml 600 ml 35468 ml Balance 750 ml 72 ml 9594 ml Intake Oral 1500 ml 672 ml 34150 ml IV Total 8277 ml Output Urine Total 750 ml 600 ml 89401 ml Estimated Blood Loss 350 ml # Voids 3 11 # Bowel Movements 0 4 Exam Patient is awake and alert. He has a wound VAC attached to each foot amputation site. He is refusing for me to examine him. Lab and Diagnostics Patient is refusing all blood draws Microbiology Microbiology 07/10/16 Blood Culture - Final, Complete Hafnia Alvei 07/10/16 Urine Culture - Final, Complete Mixed Urogenital Beth 07/11/16 Gram Stain - Final, Resulted 07/11/16 Culture & Sensitivity - Preliminary, Resulted Insufficient growth, culture is reinc... 07/11/16 Anaerobic Culture, Resulted Pending Microbiology MANUEL CULTURE BLOOD Final 07/13/16-25 Organism 1 BETITO MORENO GRAM STAIN RESULT GRAM NEGATIVE RODS BC BOTTLE Isolated from Anaerobic Bottle of Set Drawn DATE CALLED: 07/11/16 TIME CALLED: 0335 CALLED BY: LUCA FLOOR/DOCTOR: ART/GRETCHEN Stewart, RN BC READ BACK Y TYPE OF DRAW PERIPHERAL DRAW TIME OF POSITIVITY 0300 GRAM STAIN RESULT GRAM NEGATIVE RODS BC BOTTLE2 Isolated from Aerobic Bottle of Set Drawn DATE CALLED: 07/11/16 TIME CALLED: 0530 CALLED BY: CHARLOTTE FLOOR/DOCTOR: ART/GRETCHEN Stewart BC READ BACK Y TYPE OF DRAW PERIPHERAL DRAW TIME OF POSITIVITY 0450 ISOLATED FROM FOUR OF FOUR BOTTLES COLLECTED 07/10 1. BETITO MORENOMera Guillaume Interp --------- ------ * AMIKACIN <=2 S * AMPICILLIN R * AMPICILLIN/SULBACTAM R * CEFAZOLIN >=64 R * CEFEPIME <=1 S * CEFOXITIN R * CEFTRIAXONE <=1 S * CIPROFLOXACIN <=0.25 S * GENTAMICIN <=1 S Name: ZHANG FORD Age/Sex: 51/M Attend Dr: Nazia Carmichael MD Acct: [id number] Unit: [id number] Status: IN [place] [facility]-1 Re07/10/16 Disch: Specimen: [id number] Collected: 07/13/16 Status: COMP Req#: [id number] Received: 07/13/16 Source: BLOOD Sp Desc : ADALID Lau Dr: Simone Song DPM Ordered: BONIFACIO Comments: Collected by Nurse/Unit? Y/N N Comment: PATIENT IN OR Procedure Result Verified Site Microbiology MANUEL CULTURE BLOOD Final 07/18/16 NO GROWTH AFTER 5 DAYS X-Rays, CTs and MRIs PROCEDURE: X-RAY CHEST ONE VIEW, PORTABLE ([id number]) INDICATIONS: sepsis TECHNIQUE: One view of the chest was acquired. COMPARISON: None. FINDINGS: Surgical changes and devices: None. Lungs and pleura: No pleural effusions or pneumothorax. Lungs are clear. Mediastinum: Mediastinal contours appear normal. Heart size is normal. Bones and chest wall: No suspicious bony lesions. Overlying soft tissues appear unremarkable. IMPRESSION: 1. No acute cardiopulmonary disease. Dictated by: Medardo Mohan M.D. on 07/10/2016 at 12:17 Approved by: Medardo Mohan M.D. on 07/10/2016 at 12:1 Cardiac Echo Impressions Echocardiogram Report Name: ZHANG FORD Study Date: 07/14/2016 Height: 74 in Hospital Exam Location: [facility] Weight: 170 lb Gender: Male BSA: 2.0 m2 : 1965 Age: 51 yrs BP: 109/66 mmHg Reason For Study: BACTEREMIA, MURMUR Ordering Physician: HOSPITALIST SVHPerformed By: Job Kellogg Referring Physician: ISHMAEL NORTH Interpretation Summary 1. Normal left ventricular size, wall thickness and systolic function with an estimated EF of 60-65% Mildly elevated outflow tract velocities 2. Normal right ventricular size and systolic function 3. No significant valvular regurgitation. No valvular stenosis appreciated. Assessment & Plan 51 year old male homeless, w/ Sepsis due to bilateral forefeet wet gangrene s/p I and D bedside in ER Bilateral forefoot wet gangrene -- Continue Cipro 750 mg twice a day by mouth as patient will not allow IV medications or any IVs or needle sticks. 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 Repeat blood cultures on 07/13/2016 are negative -- Wound VAC in place podiatry following. However, patient refused to go back to surgery today. -- Continue with regular wound care and wound VAC changes as prescribed Bacteremia -gram negative, +cx from 07/10 -- Blood Cultures positive for Halfnia Alvei sensitive to Cipro -- Infectious disease following Anemia -- May the delutional and/or secondary to surgery -- We are unable to monitor this patient is refusing all blood draws. Elevated blood glucose -- Unable to obtain hemoglobin A1c, lipid panel as patient is still refusing any blood draws or needle sticks. It has been explained to the patient the importance of these tests the patient states that he understands and still refuses. 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 DVT prophylax: Lovenox has been prescribed however the patient is currently refusing Anticipated discharge planning: Patient is still being difficult and refusing treatment. The patient has some sort of fear of needles and will not allow any blood glucose monitoring nor will he allow any blood test to be taken in order to monitor his A1c, white cell count, hemoglobin and hematocrit or lipids. The patient was on ertapenem however since he lost IV access he has not been able to do his full course of ertapenem however has remained on oral Cipro 750 mg twice a day. The patient's bacteria Halfnia Alvei is sensitive to Cipro. The patient has been afebrile and there are no signs of erythema or infection at the wound site that I can see. However, the patient refused to allow me to examine him. We will continue to monitor for any infectious clinical signs as the patient has limited us in this respect. 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 Because the patient has been extremely difficult to work with and refusing both treatments and examinations it was felt that the patient should have a psych consult. I have asked Dr. Oscar Rojas of the psychiatry service to evaluate the patient and at least try to determine if he is of sound mind to be able to make his own medical decisions. Patient may need an appointed guardian. Pain Evaluation: Adequate Pain Control GI Prophylaxis: Not indicated VTE Prophylaxis: Other (patient is refusing DVT prophylaxis) VTE Mechanical Devices: Intermittant Pneumatic CD Resuscitation Status: CPR: Attempt Resuscitation Lennox Zhang MD Jul 21, 2016 19:41
[2016-07-22] MEDS: 0.9% Sodium Chloride 1,000 ML IV SCH ×3 (00:30→13:51)
--- NOTE | 2016-07-22 05:09 | NUR ---
Compliance Patient refuses blood sugar checks, vitals and most other cares and assessments. Patient is willing to take oral antibiotics and pain medication. Patient asks to keep door closed and states he will use the call light if he needs anything.
[2016-07-22] MEDS: Insulin LISPRO 300 Unit/3 mL Inj SUBQ SCH ×4 (07:28→22:00)
--- NOTE | 2016-07-22 13:14 | NUR ---
Social work Continued Discharge Planning: SW conducted discharge planning update. Psych consulted and attempted to meet with patient but had an unsuccessful attempt. Psych to re-eval. SW contacted and left voice mail message for patient NATI Hanks, to discuss updates on placement. Patient refusing surgery at this time and has wound vac. CAROL preemptively contacted [facility], and spoke to admissions rep Nithya to discuss possible consideration. CAROL faxed clinical information to .[phone] for review. SW to follow up with rep to determine if patient meets criteria. SW to follow. PLAN: Discharge plan in progress, pending clinical course and placement. CAROL following Greg[facility] DE LA CRUZ
--- NOTE | 2016-07-22 14:12 | NUR ---
[PT REFUSES VITAL SIGNS CHECK- ML Addendum: 07/22/16 at 1414 by SHANIQUE KYLE CNA Amended: Links added.
--- NOTE | 2016-07-22 15:20 | NUR ---
NON-COMPLIANT WITH CARE Patient always rates his pain as 9/10 over his BLE. Oxicodone 10 mg PO administered. Tolerating his diet and PO liquids well. Denies nausea. No emesis noted. Denies SOB. Woundvac is functioning without any issues at this time. Voiding without any problems. + BM today. He was able to transfer independently in the [facility]. Non-compliant with his weightbearing status. Patient stated: "Leave me alone. Do not come in here unless I use my call light." Patient refused to have his assessment/blood sugar checks drawn despite multiple attempts to do so. MD is aware of patients non-compliance. Addendum: 07/22/16 at 1555 by CAYLA ALVARADO RN NON-COMPLIANT Patient refused skin care and to have his bed linens changed despite multiple offers to do so.
--- NOTE | 2016-07-22 16:41 | CONS ---
[address] [address] CONSULTATION REPORT PATIENT: ZHANG FORD : 1965 MR#: [id number] ADMIT: 07/10/2016 JOB ID: [id number] DATE OF SERVICE: 07/22/2016 PSYCHIATRIC CONSULTATION: IDENTIFICATION: The patient is a 51-year-old white male, currently homeless. He reportedly has a history of Bethel disorder. He was brought to the ED for bilateral feet pain. REASON FOR CONSULTATION: A consultation was requested to identify potential psychiatric diagnoses, psychiatric medications and to assess competency. HISTORY OF PRESENT ILLNESS: The patient is a 51-year-old single, white male, who is homeless and struggling with a reported symptoms of Bethel disorder. He had been outside in the cold for an unknown amount of time and in the ED they had to cut the shoes off. Underneath both lower feet were gangrenous. He underwent bilateral amputation. I met with him on the , the and the . For the first two days, he was completely belligerent and would refuse to answer any of my questions. Today he was willing to talk. His main issue is recovering from an amputation, struggling with what he describes as [place] disease and homelessness and unemployment. He consistently denied psychiatric review of systems for depression, radha or psychosis. He denied a desire to , rather stated he wanted antibiotic care, pain meds and a snf home to recover. MEDICATIONS: None. In the hospital, the client is receiving ciprofloxacin, insulin, hydromorphone, oxycodone. ALLERGIES: No known drug allergies. PAST MEDICAL HISTORY: Client reports [place] chorea. FAMILY MEDICAL HISTORY: Client has one living sister. PAST PSYCHIATRIC HISTORY: None. PSYCHOSOCIAL HISTORY: Client did not want to repeat the psychosocial history from chart review. It is noted that he has to work at [email or web address]. He became homeless, lost his job, recently lost his mobile home where he used to live. Since then he has been sleeping in churches and store fronts and occasionally just out in the open cold. He has relatives on [place] and siblings as well in [place]. He denied drug and alcohol use. He denied a history of suicidal ideation or suicide attempt. He denied a history of legal problems. FAMILY MEDICAL HISTORY: Positive for [place]'s. Dad at age 63. MENTAL STATUS EXAMINATION: Client lying calmly in a hospital bed. Both feet bandaged. He appeared to be in no acute distress. During the first two days, he was extremely belligerent and if I asked any questions he would become increasingly so until I left. Today with an improved alliance, he was more pleasant and polite. He responded to all my questions with a normal rate and rhythm. His mood was remarkably euthymic. Affect was congruent. Normal intensity. This may be partly due to the pain medications. Thought process: Client was able to relate a coherent history. He is able to appreciate simple and complex abstractions. Thought content was significant for themes of how to take care of his body. He denied suicidal ideation, plan or intent. Client alert and oriented to person, place and date. He refused to answer memory, attention, insight or judgment questions. Impulse control: Client appears highly contained, yet rigid. Reality testing intact. Competence to handle current stressors appears to be appropriate. IMPRESSION: The client is a 51-year-old white male who has been struggling with [place]'s chorea, loss of his job, loss of his home and now a loss of his feet due to gangrene. Since he lost his motor home, he has been living out in the cold. He has no interest in psychiatric care or psychiatric medications. He acknowledges that he wants wound care, he wants pain medications and he wants a snf home in order to recover. From my evaluation patient is showing Relatively appropriate insight and judgment into his care. At this point he is competent To make medical decisions. DIAGNOSIS: AXIS I Adjustment disorder with a disturbance of conduct. AXIS II None. AXIS III 1. Bilateral amputation. 2. [place]'s chorea by history. AXIS IV Severe. AXIS V Current global assessment of functioning equal to 50. PLAN: Would recommend offering client as many choices and options for care as possible. I would be happy to re-evaluate the patient if he changes his mind about potential psychiatric treatments for depression, anxiety or impulse control. At this time, the patient is competent to advocate for his care and he is declining any psychiatric therapies Thank you for a very interesting consultation. Please call if client changes his mind about psychiatric care. CELI
--- NOTE | 2016-07-22 17:11 | NUR ---
Wound Care Discussed pt's case with Dr Song and Dr Chaney. Pt remains adamant that the NPWT be discontinued. Dr Chaney willing to perform STSG bilaterally on 07/29/16 to bilateral forefoot amputation sites. Dr Song agreeable to discontinuation of NPWT at this time to appease patient (wounds are granular and ready for grafting). Decision made to apply silver based dressings and wrap pt's wounds until grafting can be performed. Wounds were all cleaned after NPWT removal today, intact skin wiped down with betadine then applied Tegaderm Ag mesh, Xeroform, Abd pad, Kerlix and coban wrap. This dressing will be left in place till Tuesday, WS to change with podiatry Tuesday.
--- NOTE | 2016-07-22 20:37 | NUR ---
7-7AM SHIFT REFUSED VITAL SIGNS,RN IS AWARE. Addendum: 07/22/16 at 2038 by FAVIO ZALDIVAR CNA Amended: Links added.
--- NOTE | 2016-07-22 22:28 | PCM.PNMED ---
Subjective Date of Service Jul 22, 2016 Subjective Patient continues to refuse blood draws. His reasoning is that he had such poor nutrition prior to admission that he thinks his blood was low and does not want any of it drawn. Patient also refused to allow me to examine him as he stated that someone already examined him this morning. Exam Vital Signs Vital Sign - Last Date Time Temp Pulse Resp B/P Pulse Ox O2 Delivery O2 Flow Rate FiO2 07/21/16 17:07 36.5 120/76 07/20/16 09:43 22 Room Air 07/20/16 04:49 67 95 Intake and Output 07/21/16 07/21/16 07/22/16 Cumulative From/Thru 15:00 23:00 07:00 07/10/16 11:37 - 07/22/16 06:19 Intake Total 1000 ml 540 ml 83854 ml Output Total 800 ml 650 ml 74559 ml Balance 200 ml -110 ml 9684 ml Intake Oral 1000 ml 540 ml 62317 ml IV Total 8277 ml Output Urine Total 800 ml 650 ml 56084 ml Estimated Blood Loss 350 ml # Voids 11 # Bowel Movements 1 0 5 Exam Patient refused to allow me to examine him. He did allow me to stay in the room while Suresh of wound care tried to convince him that he needed to have a skin graft surgery to both his feet. Patient became less agitated with his discussion came on and was more polite today and stated that he would think about having surgery. He even allowed me to examine him. Exam findings are as follows. General: He is in no apparent distress HEENT: Head is atraumatic normocephalic. Eyes: Pupils are equally round and reactive to light and accommodation. Extraocular muscles are intact. Sclera are white anicteric. Subconjunctival mucosa is pink. Ears and nose are unremarkable. Oropharynx: There is no mucosal lesions, there is no thrush, there is no pharyngitis. Neck: Is supple, there are no nodes, or masses or tenderness evident. Chest: Is clear to auscultation and percussion. There are no rales, rhonchi, wheezes or rubs. Heart: Rate, rhythm is regular. There is no murmur, rub or gallop. Abdomen: Good bowel sounds are present. Abdomen is soft, nontender, no organomegaly or masses were appreciated. Extremities: Both transmetatarsal amputation sites are covered with wound vacuum systems. Otherwise they are unremarkable. There is no erythema and there is minimal edema. Otherwise extremities are symmetrical and well perfused. Neurologic: There are no focal neurological deficits. Cranial nerves II through XII are intact. There are no sensory or motor deficits. There are no choreiform type movements. However, movement slightly aberrant and speech is slightly slowed and deliberate. Psychiatric: Patients mood is calm and shows no sign of agitation. Genital: Deferred Rectal: Deferred Lab and Diagnostics Microbiology Microbiology 07/10/16 Blood Culture - Final, Complete Hafnia Alvei 07/10/16 Urine Culture - Final, Complete Mixed Urogenital Beth 07/11/16 Gram Stain - Final, Resulted 07/11/16 Culture & Sensitivity - Preliminary, Resulted Insufficient growth, culture is reinc... 07/11/16 Anaerobic Culture, Resulted Pending Microbiology MANUEL CULTURE BLOOD Final 07/13/16-624 Organism 1 BETITO MORENO GRAM STAIN RESULT GRAM NEGATIVE RODS BC BOTTLE Isolated from Anaerobic Bottle of Set Drawn DATE CALLED: 07/11/16 TIME CALLED: 0335 CALLED BY: LUCA FLOOR/DOCTOR: ART/GRETCHEN Stewart, RN BC READ BACK Y TYPE OF DRAW PERIPHERAL DRAW TIME OF POSITIVITY 0300 GRAM STAIN RESULT GRAM NEGATIVE RODS BC BOTTLE2 Isolated from Aerobic Bottle of Set Drawn DATE CALLED: 07/11/16 TIME CALLED: 0530 CALLED BY: [place] FLOOR/DOCTOR: ART/GRETCHEN Stewart BC READ BACK Y TYPE OF DRAW PERIPHERAL DRAW TIME OF POSITIVITY 0450 ISOLATED FROM FOUR OF FOUR BOTTLES COLLECTED 07/10 1. BETITO MORENOMera Guillaume Interp --------- ------ * AMIKACIN <=2 S * AMPICILLIN R * AMPICILLIN/SULBACTAM R * CEFAZOLIN >=64 R * CEFEPIME <=1 S * CEFOXITIN R * CEFTRIAXONE <=1 S * CIPROFLOXACIN <=0.25 S * GENTAMICIN <=1 S Name: ZHANG FORD Age/Sex: 51/M Attend Dr: Nazia Carmichael MD Acct: [id number] Unit: [id number] Status: ADM IN [place] [facility] [place]5-1 Re07/10/16 Disch: Specimen: [id number] Collected: 07/13/16 Status: COMP Req#: [id number] Received: 07/13/16 Source: BLOOD Sp Desc : ADALID Lau Dr: Simone Song DPM Ordered: BONIFACIO Comments: Collected by Nurse/Unit? Y/N N Comment: PATIENT IN OR Procedure Result Verified Site Microbiology MANUEL CULTURE BLOOD Final 07/18/16-1923 NO GROWTH AFTER 5 DAYS X-Rays, CTs and MRIs PROCEDURE: X-RAY CHEST ONE VIEW, PORTABLE ([id number]) INDICATIONS: sepsis TECHNIQUE: One view of the chest was acquired. COMPARISON: None. FINDINGS: Surgical changes and devices: None. Lungs and pleura: No pleural effusions or pneumothorax. Lungs are clear. Mediastinum: Mediastinal contours appear normal. Heart size is normal. Bones and chest wall: No suspicious bony lesions. Overlying soft tissues appear unremarkable. IMPRESSION: 1. No acute cardiopulmonary disease. Dictated by: Medardo Mohan M.D. on 07/10/2016 at 12:17 Approved by: Medardo Mohan M.D. on 07/10/2016 at 12:1 Cardiac Echo Impressions Echocardiogram Report Name: ZHANG FORD Study Date: 07/14/2016 Height: 74 in Hospital Exam Location: [facility] Weight: 170 lb Gender: Male BSA: 2.0 m2 : 1965 Age: 51 yrs BP: 109/66 mmHg Reason For Study: BACTEREMIA, MURMUR Ordering Physician: HOSPITALIST SVHPerformed By: Job Kellogg Referring Physician: ISHMAEL NORTH Interpretation Summary 1. Normal left ventricular size, wall thickness and systolic function with an estimated EF of 60-65% Mildly elevated outflow tract velocities 2. Normal right ventricular size and systolic function 3. No significant valvular regurgitation. No valvular stenosis appreciated. Assessment & Plan 51 year old male homeless, w/ Sepsis due to bilateral forefeet wet gangrene s/p I and D bedside in ER Bilateral forefoot wet gangrene -- Continue Cipro 750 mg twice a day by mouth as patient will not allow IV medications or any IVs or needle sticks. 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 Repeat blood cultures on 07/13/2016 are negative -- Wound VAC in place podiatry following. However, patient refused to go back to surgery yesterday. After long discussion with Suresh of wound care today, while I was present, patient seems to be more accepting of the need for skin graft surgery and is willing to do it but is not well wound vacs attached after the surgery. He states that the wound vacs limited his mobility and his ability to get back and forth to the bathroom. -- Continue with regular wound care and wound VAC changes as prescribed and as patient allows. Bacteremia -gram negative, +cx from 07/10 -- Initial Blood Cultures positive for Halfnia Alvei sensitive to Cipro -- Repeat blood cultures were negative -- Infectious disease following Anemia -- May the delutional and/or secondary to surgery -- We are unable to monitor this patient is refusing all blood draws. He states this is because he was so malnourished prior to admission. Elevated blood glucose -- Unable to obtain hemoglobin A1c, lipid panel as patient is still refusing any blood draws or needle sticks. It has been explained to the patient the importance of these tests the patient states that he understands and still refuses. 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 DVT prophylax: Lovenox has been prescribed however the patient is currently refusing Anticipated discharge planning: Patient is still being difficult and refusing treatment. The patient has some sort of fear of needles and will not allow any blood glucose monitoring nor will he allow any blood test to be taken in order to monitor his A1c, white cell count, hemoglobin and hematocrit or lipids. The patient was on ertapenem however since he lost IV access he has not been able to do his full course of ertapenem however has remained on oral Cipro 750 mg twice a day. The patient's bacteria Halfnia Alvei is sensitive to Cipro. The patient has been afebrile and there are no signs of erythema or infection at the wound site that I can see. We will continue to monitor for any infectious clinical signs as the patient has limited us in this respect. 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 Because the patient has been extremely difficult to work with and refusing both treatments and examinations it was felt that the patient should have a psych consult. I have asked Dr. Oscar Rojas of the psychiatry service to evaluate the patient and at least try to determine if he is of sound mind to be able to make his own medical decisions. Patient may need an appointed guardian. Dr. 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 AXIS II None. AXIS III 1. Bilateral amputation. 2. [place]'s chorea by history. AXIS IV Severe. AXIS V Current global assessment of functioning equal to 50. PLAN: Would recommend offering client as many choices and options for care as possible. I would be happy to re-evaluate the patient if he changes his mind about potential psychiatric treatments for depression, anxiety or impulse control. At this time, the patient is competent to advocate for his care. At this time are opposite patient will agree to skin grafting and be able to be transferred to a long term facility for wound care without wound vacs as patient is has negotiated with Suresh to not have wound vacs in place after skin grafting. Suresh will discuss with Dr. Anne and again with the patient. Pain Evaluation: Adequate Pain Control GI Prophylaxis: Not indicated VTE Prophylaxis: Other (patient is refusing DVT prophylaxis) VTE Mechanical Devices: Intermittant Pneumatic CD Resuscitation Status: CPR: Attempt Resuscitation [place] PetersLennox MD Jul 22, 2016 22:28
[2016-07-23] MEDS: 0.9% Sodium Chloride 1,000 ML IV SCH ×3 (00:21→11:42)
--- NOTE | 2016-07-23 01:12 | NUR ---
ABX Refusal Patient continues to be non-compliant to care. Has refused a full assessment, as well as a BG check this evening. Patient has also stated that he is not to be bothered with assessing his pain, unless he calls for medication. In addition, patient refused antibiotics. Patient was educated on the importance of ABX compliance but still refused. Patient is currently sleeping, and appears comfortable. Will resume Q 1hour checks, and continue care.
[2016-07-23 05:58] VITALS: BP 108/71; PULSE 91; RESP 18; O2SAT 93
[2016-07-23] MEDS: Insulin LISPRO 300 Unit/3 mL Inj SUBQ SCH ×4 (07:59→22:00)
--- NOTE | 2016-07-23 15:00 | PROG NOTE ---
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 INTERVAL HISTORY: The patient has been refusing exam by some other providers but was quite cordial with me this afternoon. He states he has an occasional chill but no fever or sweats. He has no pulmonary symptoms. His appetite is great. He denies diarrhea. He states he has no real pain in his feet, and he thinks they are healing. He declines to have the dressings unwrapped, however, so that I could see them. PHYSICAL EXAMINATION: Reveals an afebrile gentleman sitting up in bed, watching TV. Temp 36.7, pulse 91, respiratory rate 18, blood pressure 108/71. He is saturating 93% on room air. Examination of the eyes unremarkable. The oral cavity is likewise unremarkable. Lungs quite clear anteriorly. Abdomen soft and nontender. Both feet are wrapped in occlusive large dressings. I did not remove those, the patient would not let me. LABORATORY DATA: His white count was last checked now a week ago, and it was 10,000. He has been refusing all blood draws. With respect to his cultures, our last culture was of a foot from the done during a wound change, and that was no growth. Prior cultures of wounds, of course, had grown Proteus mirabilis and Morganella morgagni, while blood cultures had repeatedly grown hafnia. IMAGING: No new imaging has been done. IMPRESSION: This patient continues to tolerate his oral Cipro therapy for his polymicrobial foot infection with hafnia bacteremia. His [place] chorea and mental problems are interfering with his care somewhat, as he has been declining procedures and declining evaluations and laboratories, but in general, he seems to be getting somewhat better. There is very little way to follow him other than just clinically given the absence of laboratories and the inability to closely examine his feet. RECOMMENDATIONS: 1. Will continue with oral Cipro with the plan to continue six weeks. 2. I will see the patient again on Tuesday, assuming there are no changes. Do not hesitate to call me if things do change.
--- NOTE | 2016-07-23 16:43 | NUR ---
Social Work Continued Discharge Planning: Per report in rounds, wound vac discontinued. CAROL requested [facility] referral by UR specialist for possible consideration. CAROL to follow. Gregorio DE LA CRUZ
--- NOTE | 2016-07-23 17:30 | NUR ---
NON-COMPLIANT WITH CARE Patient continues to be non-compliant with care. He refuses blood sugar checks/assessments. He always rates his pain as 9/10. Oxicodone 10 mg PO administered. Via FELDT scale patients pain level is 0/10. Tolerating liquids PO and his diet well. Denies nausea. No emesis noted. Denies SOB. Patient got OOB to the chair. Ortho shoes are on. Dressing remains CDI on his feet. WCS to do dressing changes.
--- NOTE | 2016-07-23 18:11 | PCM.PNPOD ---
Subjective Date of Service: Jul 23, 2016 Date of Service: Jul 23, 2016 Visit Information: Reason for Visit Bilateral Foot Gangrenous Surgery/Surgery Date OUMOU TRANSMETATARSAL AMPUTATION Post-Op Day # Date of Admission: Jul 10, 2016 at 14:14 Hospital Day # Subjective: 51-year-old male evaluated at bedside resting comfortably in no acute distress. Patient recently underwent bilateral transmetatarsal amputation for treatment of bilateral wet gangrene. Patient was previously scheduled for skin graft operation to be performed by Dr. El Chaney earlier this week however the patient refused. At this time the patient is stating that he is willing to undergo skin grafting in the future. Postop General: No Complaints Gastrointestinal: Good Appetite Pain Management: PO Objective Vital Sign - Last Date Time Temp Pulse Resp B/P Pulse Ox O2 Delivery O2 Flow Rate FiO2 07/23/16 05:58 36.7 91 18 108/71 93 Room Air Intake and Output 07/22/16 07/22/16 07/23/16 Cumulative From/Thru 15:00 23:00 07:00 07/10/16 11:37 - 07/23/16 06:21 Intake Total 1031 ml 440 ml 00924 ml Output Total 300 ml 750 ml 48951 ml Balance 731 ml -310 ml 44873 ml Intake Oral 1031 ml 440 ml 11894 ml IV Total 8277 ml Output Urine Total 300 ml 750 ml 78666 ml Estimated Blood Loss 350 ml # Voids 11 # Bowel Movements 1 6 Lab Test 07/10/16 11:22 07/10/16 12:08 07/10/16 18:20 07/13/16 18:45 Magnesium Level 2.0mg/dL (1.6-2.6) Total Bilirubin 0.4mg/dL (0.0-1.2) Aspartate Amino Transf (AST/SGOT) 39U/L (0-50) Alanine Aminotransferase (ALT/SGPT) 35U/L (0-44) Alkaline Phosphatase 100U/L (25-150) Troponin T 0.010ug/L (0.0-0.011) Total Protein 7.3g/dL (6.4-8.4) Albumin 3.1g/dL (3.4-5.0) Prothrombin Time 13.3sec (8.1-12.5) Prothromb Time International Ratio 1.24ratio Lactic Acid Level 2.0mmol/L (0.4-2.0) Urine Color Yellow (YELLOW) Urine Appearance Slightly cloudy Urine pH 5.5 (5.0-8.0) Urine Specific [place] 1.025 (1.003-1.035) Urine Protein Negativemg/dL (NEG,TRACE) Urine Glucose (UA) Negativemg/dL (NEGATIVE) Urine Ketones 15mg/dL (NEGATIVE) Urine Occult Blood Large (NEGATIVE) Urine Nitrite Positive (NEGATIVE) Urine Bilirubin Negative (NEGATIVE) Urine Urobilinogen 1.0mg/dL (NORMAL) Urine Leukocyte Esterase Negative (NEGATIVE) Urine RBC 3-10/hpf (0-2) Urine WBC 0-5/hpf (0-5) Urine Epithelial Cells None/hpf (NONE-MOD) Urine Crystals None seen (NONE SEEN) Urine Bacteria Moderate/hpf (NONE-FEW) Urine Hyaline Casts None/lpf (NONE) Urine Granular Casts None seen (NONE SEEN) Urine Waxy Casts None seen (NONE SEEN) Urine Red Blood Cell Casts None seen (NONE SEEN) Urine White Blood Cell Casts None seen (NONE SEEN) Urine Mucus Present (None Seen) Urine Trichomonas None seen (NONE SEEN) Urine Yeast None (NONE SEEN) Urinalysis Comment None Urine Culture Reflexed Indicated White Blood Count 10.0th/mm3 (3.8-10.1) Red Blood Count 2.57mil/mm3 (4.40-5.80) Hemoglobin 7.6g/dL (13.8-17.2) Hematocrit 23.4% (41.0-50.0) Mean Corpuscular Volume 91.1fL (81-100) Mean Corpuscular Hemoglobin 29.6pg (27.0-35.0) Mean Corpuscular Hemoglobin Concent 32.5% (32.0-37.0) Red Cell Distribution Width 12.4% (12.3-15.4) Platelet Count 465bil/L (150-400) Neutrophils (%) (Auto) 67.5% (40-74) Lymphocytes (%) (Auto) 21.6% (14-46) Monocytes (%) (Auto) 8.1% (4-12) Eosinophils (%) (Auto) 0.1% (0-5) Basophils (%) (Auto) 0.5% (0-3) Hold Blue Top Tube Received (Received) Sodium Level 136mEq/L (134-144) Potassium Level 4.1mEq/L (3.5-5.2) Chloride Level 98mEq/L (97-108) Carbon Dioxide Level 28mmol/L (18-29) Blood Urea Nitrogen 6mg/dL (6-24) Creatinine 0.59mg/dL (0.76-1.27) Estimat Glomerular Filtration Rate 153mL/min (>59) Glucose Level 114mg/dL (60-99) Calcium Level 7.9mg/dL (8.5-10.1) Hold [place] Top Tube Received (Received) Hold [place] Top Tube Received (Received) Vancomycin Level Trough 5.6mcg/mL Exam General: Alert, Oriented X3, Mild Distress (due to tiredness) Lungs: Normal Air Movement Lower Extremities: Bilateral: Edema localized (feet) Extremity cool Lower Extremity Pulses: Absent: Left Dorsalis Pedis Left Posterior Tibal Right Dorsalis Pedis (secondary to edema) Right Posterior Tibal Postop Sensory Motor: Motor 5/5 Podiatry WOUND : Wound Location/Description Bilateral lower extremity dressings clean dry and intact without any notable strike through Surgical Cast or Splint: None Assessment & Plan Impression Stable bilateral lower extremity wounds without indication of infection Problems: (1) Gangrene of foot Plan: Patient appears to be quite stable at this time and is not need of any immediate surgical intervention. As I have discussed with the patient he would benefit from skin grafting as this would likely allow his bilateral lower extremity transmetatarsal amputation site ulcerations to heal much sooner. We will continue with antibiotic therapy per Dr. Vale recommendation. This patient is to remain strictly nonweightbearing. Wound care service will continue to perform dressing changes on this patient as necessary per their recommendation. I will again discuss this patient with the plastic surgery service for potential skin grafting within the next week or so. This patient is stable for transition to outpatient care provided he receives placement to a long term facility for local wound care and antibiotic therapy. This patient is not stable for discharge to the streets or homelessness which would likely result in severe reinfection necessitating [id number] amputation or potentially leading to sepsis and . Status: Acute ICD Code: I96 VTE Prophylaxis: Other (patient is refusing DVT prophylaxis) Simone Song DPM Jul 23, 2016 18:11
--- NOTE | 2016-07-23 22:11 | NUR ---
COMPLIANCE Patient refused physical assessment, blood sugar checks, vital signs. Pleasant to interview, answers questions, requests to be left to sleep through night. Denies CP, SOB, N&V, and Pain at this time.
--- NOTE | 2016-07-23 23:13 | PCM.PNMED ---
Subjective Date of Service Jul 23, 2016 Subjective Patient continues to refuse blood draws. However he agrees to allow me to examine him today. He is much happy over the wound VAC system off both of his feet. Exam Vital Signs Vital Sign - Last Date Time Temp Pulse Resp B/P Pulse Ox O2 Delivery O2 Flow Rate FiO2 07/23/16 05:58 36.7 91 18 108/71 93 Room Air Intake and Output 07/22/16 07/22/16 07/23/16 Cumulative From/Thru 15:00 23:00 07:00 07/10/16 11:37 - 07/23/16 06:21 Intake Total 1031 ml 440 ml 45129 ml Output Total 300 ml 750 ml 98627 ml Balance 731 ml -310 ml 93271 ml Intake Oral 1031 ml 440 ml 29410 ml IV Total 8277 ml Output Urine Total 300 ml 750 ml 19381 ml Estimated Blood Loss 350 ml # Voids 11 # Bowel Movements 1 6 Exam General: He is in no apparent distress HEENT: Head is atraumatic normocephalic. Eyes: Pupils are equally round and reactive to light and accommodation. Extraocular muscles are intact. Sclera are white anicteric. Subconjunctival mucosa is pink. Ears and nose are unremarkable. Oropharynx: There is no mucosal lesions, there is no thrush, there is no pharyngitis. Neck: Is supple, there are no nodes, or masses or tenderness evident. Chest: Is clear to auscultation and percussion. There are no rales, rhonchi, wheezes or rubs. Heart: Rate, rhythm is regular. There is no murmur, rub or gallop. Abdomen: Good bowel sounds are present. Abdomen is soft, nontender, no organomegaly or masses were appreciated. Extremities: Both transmetatarsal amputation sites are covered with sterile Kerlix and Quentin wrap. The dressings are clean dry and intact. Neurologic: There are no focal neurological deficits. Cranial nerves II through XII are intact. There are no sensory or motor deficits. There are no choreiform type movements. However, movement slightly aberrant and speech is slightly slowed and deliberate. Psychiatric: Patients mood is calm and shows no sign of agitation. Genital: Deferred Rectal: Deferred Lab and Diagnostics Microbiology Microbiology 07/10/16 Blood Culture - Final, Complete Hafnia Alvei 07/10/16 Urine Culture - Final, Complete Mixed Urogenital Beth 07/11/16 Gram Stain - Final, Resulted 07/11/16 Culture & Sensitivity - Preliminary, Resulted Insufficient growth, culture is reinc... 07/11/16 Anaerobic Culture, Resulted Pending Microbiology MANUEL CULTURE BLOOD Final 07/13/16-624 Organism 1 BETITO MORENO GRAM STAIN RESULT GRAM NEGATIVE RODS BC BOTTLE Isolated from Anaerobic Bottle of Set Drawn DATE CALLED: 07/11/16 TIME CALLED: 0335 CALLED BY: LUCA FLOOR/DOCTOR: ART/GRETCHEN Stewart, RN BC READ BACK Y TYPE OF DRAW PERIPHERAL DRAW TIME OF POSITIVITY 0300 GRAM STAIN RESULT GRAM NEGATIVE RODS BC BOTTLE2 Isolated from Aerobic Bottle of Set Drawn DATE CALLED: 07/11/16 TIME CALLED: 0530 CALLED BY: [place]LOTTE FLOOR/DOCTOR: ART/GRETCHEN Stewart BC READ BACK Y TYPE OF DRAW PERIPHERAL DRAW TIME OF POSITIVITY 0450 ISOLATED FROM FOUR OF FOUR BOTTLES COLLECTED 07/10 1. BETITO MORENO M.I.C Interp --------- ------ * AMIKACIN <=2 S * AMPICILLIN R * AMPICILLIN/SULBACTAM R * CEFAZOLIN >=64 R * CEFEPIME <=1 S * CEFOXITIN R * CEFTRIAXONE <=1 S * CIPROFLOXACIN <=0.25 S * GENTAMICIN <=1 S Name: ZHANG FORD Age/Sex: 51/M Attend Dr: Nazia Carmichael MD Acct: [id number] Unit: [id number] Status: ADM IN [place] [facility] [place] 1015-1 Re07/10/16 Disch: Specimen: [id number] Collected: 07/13/16 Status: COMP Req#: [id number] Received: 07/13/16 Source: BLOOD Sp Desc : ADALID Lau Dr: Simone Song DPM Ordered: BONIFACIO Comments: Collected by Nurse/Unit? Y/N N Comment: PATIENT IN OR Procedure Result Verified Site Microbiology MANUEL CULTURE BLOOD Final 07/18/16 NO GROWTH AFTER 5 DAYS X-Rays, CTs and MRIs PROCEDURE: X-RAY CHEST ONE VIEW, PORTABLE ([id number]) INDICATIONS: sepsis TECHNIQUE: One view of the chest was acquired. COMPARISON: None. FINDINGS: Surgical changes and devices: None. Lungs and pleura: No pleural effusions or pneumothorax. Lungs are clear. Mediastinum: Mediastinal contours appear normal. Heart size is normal. Bones and chest wall: No suspicious bony lesions. Overlying soft tissues appear unremarkable. IMPRESSION: 1. No acute cardiopulmonary disease. Dictated by: Medardo Mohan M.D. on 07/10/2016 at 12:17 Approved by: Medardo Mohan M.D. on 07/10/2016 at 12:1 Cardiac Echo Impressions Echocardiogram Report Name: ZHANG FORD Study Date: 07/14/2016 Height: 74 in Hospital Exam Location: [facility] Weight: 170 lb Gender: Male BSA: 2.0 m2 : 1965 Age: 51 yrs BP: 109/66 mmHg Reason For Study: BACTEREMIA, MURMUR Ordering Physician: HOSPITALIST SVHPerformed By: Job Kellogg Referring Physician: ISHMAEL NORTH Interpretation Summary 1. Normal left ventricular size, wall thickness and systolic function with an estimated EF of 60-65% Mildly elevated outflow tract velocities 2. Normal right ventricular size and systolic function 3. No significant valvular regurgitation. No valvular stenosis appreciated. 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 Repeat blood cultures on 07/13/2016 are negative -- Wound VACs have been removed from both lower extremities. Bacteremia -gram negative, +cx from 07/10 -- Initial Blood Cultures positive for Halfnia Alvei sensitive to Cipro -- Repeat blood cultures were negative -- Infectious disease following Anemia -- May the delutional and/or secondary to surgery -- We are unable to monitor this patient is refusing all blood draws. He states this is because he was so malnourished prior to admission. Elevated blood glucose -- Unable to obtain hemoglobin A1c, lipid panel as patient is still refusing any blood draws or needle sticks. It has been explained to the patient the importance of these tests the patient states that he understands and still refuses. Chronic [place] dementia, unknown past medication - No chorea observed. 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 DVT prophylax: Lovenox has been prescribed however the patient is currently refusing Anticipated discharge planning: Patient is still being difficult and refusing treatment. The patient has some sort of fear of needles and will not allow any blood glucose monitoring nor will he allow any blood test to be taken in order to monitor his A1c, white cell count, hemoglobin and hematocrit or lipids. The patient was on ertapenem however since he lost IV access he has not been able to do his full course of ertapenem however has remained on oral Cipro 750 mg twice a day. The patient's bacteria Halfnia Alvei is sensitive to Cipro. The patient has been afebrile and there are no signs of erythema or infection at the wound site that I can see. We will continue to monitor for any infectious clinical signs as the patient has limited us in this respect. computer networker is still working on placement for the patient as he is unable to return to the streets with a wound VAC. Because the patient has been extremely difficult to work with and refusing both treatments and examinations it was felt that the patient should have a psych consult. I have asked Dr. Oscar Rojas of the psychiatry service to evaluate the patient and at least try to determine if he is of sound mind to be able to make his own medical decisions. Patient may need an appointed guardian. Dr. 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 AXIS II None. AXIS III 1. Bilateral amputation. 2. [place]'s chorea by history. AXIS IV Severe. AXIS V Current global assessment of functioning equal to 50. PLAN: Would recommend offering client as many choices and options for care as possible. I would be happy to re-evaluate the patient if he changes his mind about potential psychiatric treatments for depression, anxiety or impulse control. At this time, the patient is competent to advocate for his care. At this time are opposite patient will agree to skin grafting and be able to be transferred to a halfway facility for wound care without wound vacs as patient is has negotiated with Suresh to not have wound vacs in place after skin grafting. Suresh will discuss with Dr. Anne and again with the patient. Pain Evaluation: Adequate Pain Control GI Prophylaxis: Not indicated VTE Prophylaxis: Other (patient is refusing DVT prophylaxis) VTE Mechanical Devices: Intermittant Pneumatic CD Resuscitation Status: CPR: Attempt Resuscitation VicenteLennox MD Jul 23, 2016 23:13
[2016-07-24] MEDS: 0.9% Sodium Chloride 1,000 ML IV SCH ×4 (00:30→23:52)
[2016-07-24] MEDS: Insulin LISPRO 300 Unit/3 mL Inj SUBQ SCH ×4 (07:31→22:00)
--- NOTE | 2016-07-24 13:43 | NUR ---
pt refused vital signs check Addendum: 07/24/16 at 1343 by SHANIQUE KYLE CNA Amended: Links added.
--- NOTE | 2016-07-24 19:46 | NUR ---
Refusing Care Pt refusing DVT prophylaxis, VS, Physical Assessment. Pt started the shift with saying, "if I don't respond in 10 milliseconds, it means Im not going to respond." I then asked pt if I could listen to his heart and lungs and he was silent; did not respond. Pt uses call light and is able to make his needs known. Received his PO abx with pain med administration. No acute issues this shift. Pt has been calm and pleasant - care continues.
--- NOTE | 2016-07-24 23:29 | PCM.PNMED ---
Subjective Date of Service Jul 24, 2016 Subjective Patient came to the nurses station to ask me if he could have 2 warm blankets and a couple hot cocoa. No other new complaints other than his feet are hurting him. He continues to refuse blood draws. However, he did allow me to examine him. Exam Vital Signs Vital Sign - Last Date Time Temp Pulse Resp B/P Pulse Ox O2 Delivery O2 Flow Rate FiO2 07/23/16 05:58 36.7 91 18 108/71 93 Room Air Intake and Output 07/23/16 07/23/16 07/24/16 Cumulative From/Thru 15:00 23:00 07:00 07/10/16 11:37 - 07/24/16 06:10 Intake Total 1236 ml 53963 ml Output Total 575 ml 57975 ml Balance 661 ml 66459 ml Intake Oral 1236 ml 05926 ml IV Total 8277 ml Output Urine Total 575 ml 15860 ml Estimated Blood Loss 350 ml # Voids 3 14 # Bowel Movements 0 6 Exam General: He is in no apparent distress HEENT: Head is atraumatic normocephalic. Eyes: Pupils are equally round and reactive to light and accommodation. Extraocular muscles are intact. Sclera are white anicteric. Subconjunctival mucosa is pink. Ears and nose are unremarkable. Oropharynx: There is no mucosal lesions, there is no thrush, there is no pharyngitis. Neck: Is supple, there are no nodes, or masses or tenderness evident. Chest: Is clear to auscultation and percussion. There are no rales, rhonchi, wheezes or rubs. Heart: Rate, rhythm is regular. There is no murmur, rub or gallop. Abdomen: Good bowel sounds are present. Abdomen is soft, nontender, no organomegaly or masses were appreciated. Extremities: Both transmetatarsal amputation sites are covered with sterile Kerlix and Quentin wrap. The dressings are clean dry and intact. Neurologic: There are no focal neurological deficits. Cranial nerves II through XII are intact. There are no sensory or motor deficits. There are no choreiform type movements. However, movement slightly aberrant and speech is slightly slowed and deliberate. Psychiatric: Patients mood is calm and shows no sign of agitation. Genital: Deferred Rectal: Deferred Lab and Diagnostics Microbiology Microbiology 07/10/16 Blood Culture - Final, Complete Teri Cuevasi 07/10/16 Urine Culture - Final, Complete Mixed Urogenital Beth 07/11/16 Gram Stain - Final, Resulted 07/11/16 Culture & Sensitivity - Preliminary, Resulted Insufficient growth, culture is reinc... 07/11/16 Anaerobic Culture, Resulted Pending Microbiology MANUEL CULTURE BLOOD Final 07/13/16-624 Organism 1 TERI MORENO GRAM STAIN RESULT GRAM NEGATIVE RODS BC BOTTLE Isolated from Anaerobic Bottle of Set Drawn DATE CALLED: 07/11/16 TIME CALLED: 0335 CALLED BY: LUCA FLOOR/DOCTOR: ART/GRETCHEN Stewart, RN BC READ BACK Y TYPE OF DRAW PERIPHERAL DRAW TIME OF POSITIVITY 0300 GRAM STAIN RESULT GRAM NEGATIVE RODS BC BOTTLE2 Isolated from Aerobic Bottle of Set Drawn DATE CALLED: 07/11/16 TIME CALLED: 0530 CALLED BY: CHARLOTTE FLOOR/DOCTOR: MAIA Stewart BC READ BACK Y TYPE OF DRAW PERIPHERAL DRAW TIME OF POSITIVITY 0450 ISOLATED FROM FOUR OF FOUR BOTTLES COLLECTED 07/10 1. TERI MORENO [facility] Interp --------- ------ * AMIKACIN <=2 S * AMPICILLIN R * AMPICILLIN/SULBACTAM R * CEFAZOLIN >=64 R * CEFEPIME <=1 S * CEFOXITIN R * CEFTRIAXONE <=1 S * CIPROFLOXACIN <=0.25 S * GENTAMICIN <=1 S Name: ZHANG FORD Age/Sex: 51/M Attend Dr: Nazia Carmichael MD Acct: [id number] Unit: [id number] Status: ADM IN Location: [facility] [place] 1015-1 Re07/10/16 Disch: Specimen: [id number] Collected: 07/13/16 Status: COMP Req#: [id number] Received: 07/13/16 Source: BLOOD Sp Desc : ADALID Lau Dr: Simone Song DPM Ordered: BC Comments: Collected by Nurse/Unit? Y/N N Comment: PATIENT IN OR Procedure Result Verified Site Microbiology MANUEL CULTURE BLOOD Final 07/18/16 NO GROWTH AFTER 5 DAYS X-Rays, CTs and MRIs PROCEDURE: X-RAY CHEST ONE VIEW, PORTABLE ([id number]) INDICATIONS: sepsis TECHNIQUE: One view of the chest was acquired. COMPARISON: None. FINDINGS: Surgical changes and devices: None. Lungs and pleura: No pleural effusions or pneumothorax. Lungs are clear. Mediastinum: Mediastinal contours appear normal. Heart size is normal. Bones and chest wall: No suspicious bony lesions. Overlying soft tissues appear unremarkable. IMPRESSION: 1. No acute cardiopulmonary disease. Dictated by: Medardo Mohan M.D. on 07/10/2016 at 12:17 Approved by: Medardo Mohan M.D. on 07/10/2016 at 12:1 Cardiac Echo Impressions Echocardiogram Report Name: ZHANG FORD Study Date: 07/14/2016 Height: 74 in Hospital Exam Location: [facility] Weight: 170 lb Gender: Male BSA: 2.0 m2 : 1965 Age: 51 yrs BP: 109/66 mmHg Reason For Study: BACTEREMIA, MURMUR Ordering Physician: HOSPITALIST SVHPerformed By: Job Kellogg Referring Physician: ISHMAEL NORTH Interpretation Summary 1. Normal left ventricular size, wall thickness and systolic function with an estimated EF of 60-65% Mildly elevated outflow tract velocities 2. Normal right ventricular size and systolic function 3. No significant valvular regurgitation. No valvular stenosis appreciated. 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 Can also occasionally refuses his by mouth dosing. Compliance is a major issue in the care of this patient. 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 Repeat blood cultures on 07/13/2016 are negative -- Wound VACs have been removed from both lower extremities. Bacteremia -gram negative, +cx from 07/10 -- Initial Blood Cultures positive for Halfnia Alvei sensitive to Cipro -- Repeat blood cultures were negative -- Infectious disease following Anemia -- May the delutional and/or secondary to surgery -- We are unable to monitor this patient is refusing all blood draws. He states this is because he was so malnourished prior to admission. Elevated blood glucose -- Unable to obtain hemoglobin A1c, lipid panel as patient is still refusing any blood draws or needle sticks. It has been explained to the patient the importance of these tests the patient states that he understands and still refuses. Chronic [place] dementia, unknown past medication - No chorea observed. 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 DVT prophylax: Lovenox has been prescribed however the patient is currently refusing Anticipated discharge planning: Patient is still being difficult and refusing treatment. The patient has some sort of fear of needles and will not allow any blood glucose monitoring nor will he allow any blood test to be taken in order to monitor his A1c, white cell count, hemoglobin and hematocrit or lipids. The patient was on ertapenem however since he lost IV access he has not been able to do his full course of ertapenem however has remained on oral Cipro 750 mg twice a day. The patient's bacteria Halfnia Alvei is sensitive to Cipro. The patient has been afebrile and there are no signs of erythema or infection at the wound site that I can see. We will continue to monitor for any infectious clinical signs as the patient has limited us in this respect. human services worker is still working on placement for the patient as he is unable to return to the streets with a wound VAC. Because the patient has been extremely difficult to work with and refusing both treatments and examinations it was felt that the patient should have a psych consult. I have asked Dr. Oscar Rojas of the psychiatry service to evaluate the patient and at least try to determine if he is of sound mind to be able to make his own medical decisions. Patient may need an appointed guardian. Dr. 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 AXIS II None. AXIS III 1. Bilateral amputation. 2. [place]'s chorea by history. AXIS IV Severe. AXIS V Current global assessment of functioning equal to 50. PLAN: Would recommend offering client as many choices and options for care as possible. I would be happy to re-evaluate the patient if he changes his mind about potential psychiatric treatments for depression, anxiety or impulse control. At this time, the patient is competent to advocate for his care. At this time, it appears, patient will agree to skin grafting and may be able to be transferred to a [place] [facility] facility for wound care without wound vacs (as patient is has negotiated with Suresh to not have wound vacs in place after skin grafting). Suresh will discuss with Dr. Anne and again with the patient. Pain Evaluation: Adequate Pain Control GI Prophylaxis: Not indicated VTE Prophylaxis: Other (patient is refusing DVT prophylaxis) VTE Mechanical Devices: Intermittant Pneumatic CD Resuscitation Status: CPR: Attempt Resuscitation Lennox Zhang MD Jul 24, 2016 23:29
--- NOTE | 2016-07-25 00:52 | NUR ---
Medications/ Non-compliance Was able to get patient to agree to take antibiotics this evening at the same time that he took his pain medication. Patient continues to be noncompliant with assessments, vitals, DVT prophylaxis, BG monitoring and non-weight bearing orders. Will continue to educate, monitor, and continue Q1 hour checks.
[2016-07-25 01:39] VITALS: BP 101/56; PULSE 88; RESP 18; O2SAT 95
[2016-07-25] MEDS: Insulin LISPRO 300 Unit/3 mL Inj SUBQ SCH ×4 (07:13→22:00)
[2016-07-25] MEDS: 0.9% Sodium Chloride 1,000 ML IV SCH ×2 (07:13→11:51)
--- NOTE | 2016-07-25 10:24 | NUR ---
NON-COMPLIANT WITH CARE 0700 Patient was noted to be sitting in the wheelchair in the hallway. Requesting for pain medication. Denies nausea/SOB. 0800 Oxicodone 10 mg PO administered this AM. Patient continues to refuse blood sugar checks/assessments. 0900 Patient was noted to be ambulating independently in the room. Ortho boots are on. Non-complaint with NWB status. Dressings on his feet are CDI. Patient placed his shirt and jeans on and refused to wear the hospital gown/pants. Continues to refuse care. Addendum: 07/25/16 at 1649 by CAYLA ALVARADO RN NON-COMPLIANCE Oxicodone 10 mg PO administered for pain control. Via FELDT scale patients pain level is 0/10 after his pain medication. Tolerating liquids PO and his diet well. Denies nausea. No emesis noted. Denies SOB. Patient has been getting OOB independently. Transfers independently to the wheelchair and has been wheeling himself out of the room and in the hallway. Non-compliant with weight bearing status. Dressing is intact. Unable to assess presence of drainage due to patients refusal for assessments. Ortho boots are on. Care continues.
--- NOTE | 2016-07-25 19:22 | NUR ---
pt refused vitals signs Addendum: 07/25/16 at 1922 by SHANIQUE KYLE CNA Amended: Links added.
--- NOTE | 2016-07-25 21:26 | PCM.PNMED ---
Subjective Date of Service Jul 25, 2016 Subjective The patient states he has had no chills or fever today. However he is "looking for some boots" to wear on his feet. He states he wears a size "13". He has no new complaints. He did allow me to examine him today. However, he continues to refuse blood draws. Exam Vital Signs Vital Sign - Last Date Time Temp Pulse Resp B/P Pulse Ox O2 Delivery O2 Flow Rate FiO2 07/25/16 01:39 36.8 88 18 101/56 95 Room Air Intake and Output 07/24/16 07/24/16 07/25/16 Cumulative From/Thru 15:00 23:00 07:00 07/10/16 11:37 - 07/25/16 05:59 Intake Total 1318 ml 740 ml 08818 ml Output Total 200 ml 550 ml 26523 ml Balance 1118 ml 190 ml 31417 ml Intake Oral 1318 ml 740 ml 02087 ml IV Total 8277 ml Output Urine Total 200 ml 550 ml 63395 ml Estimated Blood Loss 350 ml # Voids 14 # Bowel Movements 0 6 Exam General: He is in no apparent distress HEENT: Head is atraumatic normocephalic. Eyes: Pupils are equally round and reactive to light and accommodation. Extraocular muscles are intact. Sclera are white anicteric. Subconjunctival mucosa is pink. Ears and nose are unremarkable. Oropharynx: There is no mucosal lesions, there is no thrush, there is no pharyngitis. Neck: Is supple, there are no nodes, or masses or tenderness evident. Chest: Is clear to auscultation and percussion. There are no rales, rhonchi, wheezes or rubs. Heart: Rate, rhythm is regular. There is no new murmur, rub or gallop. Abdomen: Good bowel sounds are present. Abdomen is soft, nontender, no organomegaly or masses were appreciated. Extremities: Both transmetatarsal amputation sites are covered with sterile Kerlix and Quentin wrap. The dressings are clean dry and intact. Neurologic: There are no focal neurological deficits. Cranial nerves II through XII are intact. There are no sensory or motor deficits. There are minimal choreiform type movements. However, movement slightly aberrant and speech is slightly slowed and deliberate. Psychiatric: Patients mood is calm and shows no sign of agitation. Genital: Deferred Rectal: Deferred Lab and Diagnostics Patient refuses to have them drawn. Microbiology Microbiology 07/10/16 Blood Culture - Final, Complete Teri Cuevasi 07/10/16 Urine Culture - Final, Complete Mixed Urogenital Beth 07/11/16 Gram Stain - Final, Resulted 07/11/16 Culture & Sensitivity - Preliminary, Resulted Insufficient growth, culture is reinc... 07/11/16 Anaerobic Culture, Resulted Pending Microbiology MANUEL CULTURE BLOOD Final 07/13/16-0625 Organism 1 TERI MORENO GRAM STAIN RESULT GRAM NEGATIVE RODS BC BOTTLE Isolated from Anaerobic Bottle of Set Drawn DATE CALLED: 07/11/16 TIME CALLED: 0335 CALLED BY: LUCA FLOOR/DOCTOR: ART/GRETCHEN Stewart, RN BC READ BACK Y TYPE OF DRAW PERIPHERAL DRAW TIME OF POSITIVITY 0300 GRAM STAIN RESULT GRAM NEGATIVE RODS BC BOTTLE2 Isolated from Aerobic Bottle of Set Drawn DATE CALLED: 07/11/16 TIME CALLED: 0530 CALLED BY: FLOOR/DOCTOR: ART/GRETCHEN Stewart BC READ BACK Y TYPE OF DRAW PERIPHERAL DRAW TIME OF POSITIVITY 0450 ISOLATED FROM FOUR OF FOUR BOTTLES COLLECTED 07/10 1. TERI CUEVASMera Guillaume Interp --------- ------ * AMIKACIN <=2 S * AMPICILLIN R * AMPICILLIN/SULBACTAM R * CEFAZOLIN >=64 R * CEFEPIME <=1 S * CEFOXITIN R * CEFTRIAXONE <=1 S * CIPROFLOXACIN <=0.25 S * GENTAMICIN <=1 S Name: ZHANG FORD Age/Sex: 51/M Attend Dr: Nazia Carmichael MD Acct: [id number] Unit: [id number] Status: AD[place] [facility] [place]07/10[place] Disch: Specimen: [id number] Collected: 07/13/16 Status: COMP Req#: [id number] Received: 07/13/16 Source: BLOOD Sp Desc : ADALID Lau Dr: Simone Song DPM Ordered: BONIFACIO Comments: Collected by Nurse/Unit? Y/N N Comment: PATIENT IN OR Procedure Result Verified Site Microbiology MANUEL CULTURE BLOOD Final 07/18/16 NO GROWTH AFTER 5 DAYS X-Rays, CTs and MRIs PROCEDURE: X-RAY CHEST ONE VIEW, PORTABLE ([id number]) INDICATIONS: sepsis TECHNIQUE: One view of the chest was acquired. COMPARISON: None. FINDINGS: Surgical changes and devices: None. Lungs and pleura: No pleural effusions or pneumothorax. Lungs are clear. Mediastinum: Mediastinal contours appear normal. Heart size is normal. Bones and chest wall: No suspicious bony lesions. Overlying soft tissues appear unremarkable. IMPRESSION: 1. No acute cardiopulmonary disease. Dictated by: Medardo Mohan M.D. on 07/10/2016 at 12:17 Approved by: Medardo Mohan M.D. on 07/10/2016 at 12:1 Cardiac Echo Impressions Echocardiogram Report Name: ZHANG FORD Study Date: 07/14/2016 Height: 74 in Hospital Exam Location: [facility] Weight: 170 lb Gender: Male BSA: 2.0 m2 : 1965 Age: 51 yrs BP: 109/66 mmHg Reason For Study: BACTEREMIA, MURMUR Ordering Physician: HOSPITALIST SVHPerformed By: Job Kellogg Referring Physician: ISHMAEL NORTH Interpretation Summary 1. Normal left ventricular size, wall thickness and systolic function with an estimated EF of 60-65% Mildly elevated outflow tract velocities 2. Normal right ventricular size and systolic function 3. No significant valvular regurgitation. No valvular stenosis appreciated. 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 Patient also occasionally refuses his by mouth dosing. Compliance is a major issue in the care of this patient. 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 Repeat blood cultures on 07/13/2016 are negative -- Wound VACs have been removed from both lower extremities. Bacteremia -gram negative, +cx from 07/10 -- Initial Blood Cultures positive for Halfnia Alvei sensitive to Cipro -- Repeat blood cultures were negative -- Infectious disease following Anemia -- May the delutional and/or secondary to surgery -- We are unable to monitor this patient is refusing all blood draws. He states this is because he was so malnourished prior to admission. Elevated blood glucose -- Unable to obtain hemoglobin A1c, lipid panel as patient is still refusing any blood draws or needle sticks. It has been explained to the patient the importance of these tests the patient states that he understands and still refuses. 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 DVT prophylax: Lovenox has been prescribed however the patient is currently refusing Anticipated discharge planning: Patient is still being difficult and refusing treatment. The patient has some sort of fear of needles and will not allow any blood glucose monitoring, nor will he allow any blood test to be taken in order to monitor his A1c, white cell count, hemoglobin and hematocrit, chemistries or lipids. The patient was on ertapenem however since he lost IV access he has not been able to do his full course of ertapenem however has remained on oral Cipro 750 mg twice a day. The patient's bacteria Halfnia Alvei is sensitive to Cipro. The patient has been afebrile and there are no signs of erythema or infection at the wound site that I can see. We will continue to monitor for any infectious clinical signs as the patient has limited us in this respect. harvest worker field crop is still working on placement for the patient as he is unable to return to the streets with a wound VAC. Because the patient has been extremely difficult to work with and refusing both treatments and examinations it was felt that the patient should have a psych consult. I asked Dr. Oscar Rojas of the psychiatry service to evaluate the patient and at least try to determine if the patient is of sound mind to be able to make his own medical decisions. Patient may need an appointed guardian. Dr. 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 AXIS II None. AXIS III 1. Bilateral amputation. 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 AXIS V Current global assessment of functioning equal to 50. PLAN: Would recommend offering client as many choices and options for care as possible. I would be happy to re-evaluate the patient if he changes his mind about potential psychiatric treatments for depression, anxiety or impulse control. At this time, the patient is competent to advocate for his care. At this time, it appears, patient will agree to skin grafting and may be able to be transferred to a halfway facility for wound care without wound vacs (as patient has negotiated with Suresh to not have wound vacs in place after skin grafting). Suresh will discuss with Dr. Anne and again with the patient. Pain Evaluation: Adequate Pain Control GI Prophylaxis: Not indicated VTE Prophylaxis: Other (patient is refusing DVT prophylaxis) VTE Mechanical Devices: Intermittant Pneumatic CD Resuscitation Status: CPR: Attempt Resuscitation [place] MD Jul 25, 2016 21:25
[2016-07-26] MEDS: 0.9% Sodium Chloride 1,000 ML IV SCH ×2 (00:30→06:59)
--- NOTE | 2016-07-26 01:17 | NUR ---
Refusal Patient continues to refuse assessments, and BG checks despite education. Patient will not allow boots to be taken off, so foot dressings can be assessed. Patient becomes very angry and uncooperative when asked these questions. Tonight he began to yell and get aggressive when trying to clean the floor where he had spilt a drink. He states that he can do it himself, and that he doesn't want any help. Patient also states that he does not want to be bothered unless he calls for nurse or aid. Will continue to approach patient will a calm reassuring demeanor, and continue Q 1 hour checks.
[2016-07-26] MEDS: Insulin LISPRO 300 Unit/3 mL Inj SUBQ SCH ×4 (06:59→22:00)
--- NOTE | 2016-07-26 11:35 | NUR ---
Updated [facility] [place] and faxed updated clinicals. Patient is now with out wound vac and seems to meet criteria. Patient also has a CM following at [facility] and his name is ED, he can be reached at [phone]. Updated [facility]OBBIN WINDER and [facility] W[facility] Unit Tender Addendum: 07/26/16 at 1319 by MARK PARIKH CM Gave access to [facility],Jenny Applegate, [facility] and [facility] per [facility]OBBIN WINDER Unit Tender. Addendum: 07/26/16 at 1535 by MARK PARIKH CM [facility] and Jenny Applegate are both unable to meet patient's needs
--- NOTE | 2016-07-26 14:32 | PCM.PNPOD ---
Subjective Date of Service: Jul 26, 2016 Date of Service: Jul 26, 2016 Visit Information: Reason for Visit Bilateral Foot Gangrenous Surgery/Surgery Date OUMOU TRANSMETATARSAL AMPUTATION Post-Op Day # Date of Admission: Jul 10, 2016 at 14:14 Hospital Day # Subjective: 51-year-old male resting comfortably in bed. Refusing evaluation today patient attempted to get out of bed and walk out of the room when an attempt was made to change his dressings. Patient states that he just needs a Boots so that he can leave and that he believes his wounds are healing very well. Patient continues to refuse any further surgical intervention including skin grafts because he believes that while he is under surgery we are going to "steal his blood" from him with needles and he states that he "needs that blood because he is homeless". Objective Vital Sign - Last Date Time Temp Pulse Resp B/P Pulse Ox O2 Delivery O2 Flow Rate FiO2 07/25/16 01:39 36.8 88 18 101/56 95 Room Air Intake and Output 07/25/16 07/25/16 07/26/16 Cumulative From/Thru 15:00 23:00 07:00 07/10/16 11:37 - 07/26/16 05:44 Intake Total 764 ml 400 ml 70656 ml Output Total 250 ml 600 ml 93144 ml Balance 514 ml -200 ml 70456 ml Intake Oral 764 ml 400 ml 72474 ml IV Total 8277 ml Output Urine Total 250 ml 600 ml 81305 ml Estimated Blood Loss 350 ml # Voids 14 # Bowel Movements 0 6 Lab Test 07/10/16 11:22 07/10/16 12:08 07/10/16 18:20 07/13/16 18:45 Magnesium Level 2.0mg/dL (1.6-2.6) Total Bilirubin 0.4mg/dL (0.0-1.2) Aspartate Amino Transf (AST/SGOT) 39U/L (0-50) Alanine Aminotransferase (ALT/SGPT) 35U/L (0-44) Alkaline Phosphatase 100U/L (25-150) Troponin T 0.010ug/L (0.0-0.011) Total Protein 7.3g/dL (6.4-8.4) Albumin 3.1g/dL (3.4-5.0) Prothrombin Time 13.3sec (8.1-12.5) Prothromb Time International Ratio 1.24ratio Lactic Acid Level 2.0mmol/L (0.4-2.0) Urine Color Yellow (YELLOW) Urine Appearance Slightly cloudy Urine pH 5.5 (5.0-8.0) Urine Specific [place] 1.025 (1.003-1.035) Urine Protein Negativemg/dL (NEG,TRACE) Urine Glucose (UA) Negativemg/dL (NEGATIVE) Urine Ketones 15mg/dL (NEGATIVE) Urine Occult Blood Large (NEGATIVE) Urine Nitrite Positive (NEGATIVE) Urine Bilirubin Negative (NEGATIVE) Urine Urobilinogen 1.0mg/dL (NORMAL) Urine Leukocyte Esterase Negative (NEGATIVE) Urine RBC 3-10/hpf (0-2) Urine WBC 0-5/hpf (0-5) Urine Epithelial Cells None/hpf (NONE-MOD) Urine Crystals None seen (NONE SEEN) Urine Bacteria Moderate/hpf (NONE-FEW) Urine Hyaline Casts None/lpf (NONE) Urine Granular Casts None seen (NONE SEEN) Urine Waxy Casts None seen (NONE SEEN) Urine Red Blood Cell Casts None seen (NONE SEEN) Urine White Blood Cell Casts None seen (NONE SEEN) Urine Mucus Present (None Seen) Urine Trichomonas None seen (NONE SEEN) Urine Yeast None (NONE SEEN) Urinalysis Comment None Urine Culture Reflexed Indicated White Blood Count 10.0th/mm3 (3.8-10.1) Red Blood Count 2.57mil/mm3 (4.40-5.80) Hemoglobin 7.6g/dL (13.8-17.2) Hematocrit 23.4% (41.0-50.0) Mean Corpuscular Volume 91.1fL (81-100) Mean Corpuscular Hemoglobin 29.6pg (27.0-35.0) Mean Corpuscular Hemoglobin Concent 32.5% (32.0-37.0) Red Cell Distribution Width 12.4% (12.3-15.4) Platelet Count 465bil/L (150-400) Neutrophils (%) (Auto) 67.5% (40-74) Lymphocytes (%) (Auto) 21.6% (14-46) Monocytes (%) (Auto) 8.1% (4-12) Eosinophils (%) (Auto) 0.1% (0-5) Basophils (%) (Auto) 0.5% (0-3) Hold Blue Top Tube Received (Received) Sodium Level 136mEq/L (134-144) Potassium Level 4.1mEq/L (3.5-5.2) Chloride Level 98mEq/L (97-108) Carbon Dioxide Level 28mmol/L (18-29) Blood Urea Nitrogen 6mg/dL (6-24) Creatinine 0.59mg/dL (0.76-1.27) Estimat Glomerular Filtration Rate 153mL/min (>59) Glucose Level 114mg/dL (60-99) Calcium Level 7.9mg/dL (8.5-10.1) Hold [place] Top Tube Received (Received) Hold Curiel Top Tube Received (Received) Vancomycin Level Trough 5.6mcg/mL Exam General: Alert, Oriented X3, Mild Distress (due to tiredness) Lungs: Normal Air Movement Lower Extremities: Bilateral: Edema localized (feet) Extremity cool Lower Extremity Pulses: Absent: Left Dorsalis Pedis Left Posterior Tibal Right Dorsalis Pedis (secondary to edema) Right Posterior Tibal Postop Sensory Motor: Motor 5/5 Surgical Cast or Splint: None Assessment & Plan Impression Status post bilateral forefoot amputation with multiple bilateral lower extremity wounds unable to evaluate today due to patient refusal Problems: (1) Gangrene of foot Plan: I am unable to evaluate the patient's amputation site wounds today as he will not allow me or the wound care service to remove his dressings. At this time the patient has been understanding of medical reasoning as to why he had bilateral transmetatarsal amputations performed. However he continues to believe that we are going to steal his blood while he is under surgery. Today he states that he believes his wounds are healing fine. I spent several minutes with the patient today and attempted to explain to him that regular wound care and dressing changes were necessary to ensure that the wound continues to heal and does not become infected, patient verbalizes understanding but continues to refuse wound care and dressing change. No immediate surgical intervention is necessary from podiatric standpoint Patient is stable for transition to outpatient care provided proper living situation or outpatient placement. I have again discussed with the patient that if he is discharged to home with nests or leaves AGAINST MEDICAL ADVICE and does not receive the required care for his feet he will likely require more significant amputation including a potential below-knee amputation bilaterally. I have also discussed with him that failure to receive continued medical care for this issue could result in a return of his infection causing sepsis and ultimately . Patient verbalizes understanding however continues to ask me to leave the room without changing his dressings. I will continue to follow this patient weekly while he is admitted however at this time I will refer wound care recommendations to the wound care service. Status: Acute ICD Code: I96 VTE Prophylaxis: Other (patient is refusing DVT prophylaxis) Simone Song DPM Jul 26, 2016 14:32
--- NOTE | 2016-07-26 15:50 | NUR ---
Patient refused when asked to check vital signs. Addendum: 07/26/16 at 1552 by SHANIQUE KYLE CNA Amended: Links added.
--- NOTE | 2016-07-26 16:26 | NUR ---
NON-COMPLIANT WITH CARE/BEHAVIOR Oxicodone 10 mg PO administered for patients complaints of pain. Patient always rates his pain as 9/10. Refuses to tell this film writer what is tolerable for him. Via FELDT scale patients pain level is 0/10 after taking his pain meds. Tolerating liquids PO and his diet well. Denies nausea. No emesis noted. Denies SOB. Patient refuses blood sugar checks/assessment. Patient refused dressing change from Dr. Song/Suresh DELGADO. His dressings are in place and he stated: "They took the machine out so the dressing does not need to be changed." He also stated that he will call if he needs something and just wants to be left alone. Since yesterday patient was noted to be wheeling himself out of the room if he needs something instead of using his call light. This afternoon he ambulated in the hallway with his ortho boots. He is non-compliant with his weightbearing precautions despite multiple instructions. Patient got angry this morning at the VISCOSITY INSPECTOR when she changed his linen. He has his street clothes under the hospital gown and pants. He has been refusing skin care/showers. Patient at this time is very adamant in looking for a size 13 boots and an electric shaver. MD and SS are aware of this.
--- NOTE | 2016-07-26 21:29 | PCM.PNMED ---
Subjective Date of Service Jul 26, 2016 Subjective Patient allowed me to examine him, however he did not allow Suresh to change his dressings on either one of his feet. He still is refusing blood draws and IV needle sticks. Exam Vital Signs Vital Sign - Last Date Time Temp Pulse Resp B/P Pulse Ox O2 Delivery O2 Flow Rate FiO2 07/25/16 01:39 36.8 88 18 101/56 95 Room Air Intake and Output 07/25/16 07/25/16 07/26/16 Cumulative From/Thru 15:00 23:00 07:00 07/10/16 11:37 - 07/26/16 05:44 Intake Total 764 ml 400 ml 82569 ml Output Total 250 ml 600 ml 35940 ml Balance 514 ml -200 ml 75543 ml Intake Oral 764 ml 400 ml 03939 ml IV Total 8277 ml Output Urine Total 250 ml 600 ml 21028 ml Estimated Blood Loss 350 ml # Voids 14 # Bowel Movements 0 6 Exam General: He is in no apparent distress HEENT: Head is atraumatic normocephalic. Eyes: Pupils are equally round and reactive to light and accommodation. Extraocular muscles are intact. Sclera are white anicteric. Subconjunctival mucosa is pink. Ears and nose are unremarkable. Oropharynx: There is no mucosal lesions, there is no thrush, there is no pharyngitis. Neck: Is supple, there are no nodes, or masses or tenderness evident. Chest: Is clear to auscultation and percussion. There are no rales, rhonchi, wheezes or rubs. Heart: Rate, rhythm is regular. There is no new murmur, rub or gallop. Abdomen: Good bowel sounds are present. Abdomen is soft, nontender, no organomegaly or masses were appreciated. Extremities: Both transmetatarsal amputation sites are covered with sterile Kerlix and Quentin wrap. The dressings are clean dry and intact. Neurologic: There are no focal neurological deficits. Cranial nerves II through XII are intact. There are no sensory or motor deficits. There are minimal choreiform type movements. However, movement slightly aberrant and speech is slightly slowed and deliberate. Psychiatric: Patients mood is calm and shows no sign of agitation. Genital: Deferred Rectal: Deferred Lab and Diagnostics Patient continues to refuse to have his blood drawn. Microbiology Microbiology 07/10/16 Blood Culture - Final, Complete Teri Bhakta 07/10/16 Urine Culture - Final, Complete Mixed Urogenital Beth 07/11/16 Gram Stain - Final, Resulted 07/11/16 Culture & Sensitivity - Preliminary, Resulted Insufficient growth, culture is reinc... 07/11/16 Anaerobic Culture, Resulted Pending Microbiology MANUEL CULTURE BLOOD Final 07/13/16-0625 Organism 1 TERI BHAKTA GRAM STAIN RESULT GRAM NEGATIVE RODS BC BOTTLE Isolated from Anaerobic Bottle of Set Drawn DATE CALLED: 07/11/16 TIME CALLED: 0335 CALLED BY: LUCA LEACH/DOCTOR: ART/GRETCHEN Stewart, RN BC READ BACK Y TYPE OF DRAW PERIPHERAL DRAW TIME OF POSITIVITY 0300 GRAM STAIN RESULT GRAM NEGATIVE RODS BC BOTTLE2 Isolated from Aerobic Bottle of Set Drawn DATE CALLED: 07/11/16 TIME CALLED: 0530 CALLED BY: CHARLOTTE FLOOR/DOCTOR: MAIA Stewart BC READ BACK Y TYPE OF DRAW PERIPHERAL DRAW TIME OF POSITIVITY 0450 ISOLATED FROM FOUR OF FOUR BOTTLES COLLECTED 07/10 1. TERI BHAKTA [facility] Interp --------- ------ * AMIKACIN <=2 S * AMPICILLIN R * AMPICILLIN/SULBACTAM R * CEFAZOLIN >=64 R * CEFEPIME <=1 S * CEFOXITIN R * CEFTRIAXONE <=1 S * CIPROFLOXACIN <=0.25 S * GENTAMICIN <=1 S Name: FORD,ZHANG Age/Sex: 51/M Attend Dr: Nazia Carmicahel MD Acct: [id number] Unit: [id number] Status: ADM IN Location: [facility] [place] 1015-1 Re07/10/16 Disch: Specimen: [id number] Collected: 07/13/16 Status: COMP Req#: [id number] Received: 07/13/16 Source: BLOOD Sp Desc : ADALID Lau Dr: Simone Song DPM Ordered: BONIFACIO Comments: Collected by Nurse/Unit? Y/N N Comment: PATIENT IN OR Procedure Result Verified Site Microbiology MANUEL CULTURE BLOOD Final 07/18/16 NO GROWTH AFTER 5 DAYS X-Rays, CTs and MRIs PROCEDURE: X-RAY CHEST ONE VIEW, PORTABLE ([id number]) INDICATIONS: sepsis TECHNIQUE: One view of the chest was acquired. COMPARISON: None. FINDINGS: Surgical changes and devices: None. Lungs and pleura: No pleural effusions or pneumothorax. Lungs are clear. Mediastinum: Mediastinal contours appear normal. Heart size is normal. Bones and chest wall: No suspicious bony lesions. Overlying soft tissues appear unremarkable. IMPRESSION: 1. No acute cardiopulmonary disease. Dictated by: Medardo Mohan M.D. on 07/10/2016 at 12:17 Approved by: Medardo Mohan M.D. on 07/10/2016 at 12:1 Cardiac Echo Impressions Echocardiogram Report Name: ZHANG FORD Study Date: 07/14/2016 Height: 74 in Hospital Exam Location: [facility] Weight: 170 lb Gender: Male BSA: 2.0 m2 : 1965 Age: 51 yrs BP: 109/66 mmHg Reason For Study: BACTEREMIA, MURMUR Ordering Physician: HOSPITALIST SVHPerformed By: Job Kellogg Referring Physician: ISHMAEL NORTH Interpretation Summary 1. Normal left ventricular size, wall thickness and systolic function with an estimated EF of 60-65% Mildly elevated outflow tract velocities 2. Normal right ventricular size and systolic function 3. No significant valvular regurgitation. No valvular stenosis appreciated. 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 Patient also occasionally refuses his by mouth dosing. Compliance is a major issue in the care of this patient. 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 Repeat blood cultures on 07/13/2016 are negative -- Wound VACs have been removed from both lower extremities. Bacteremia -gram negative, +cx from 07/10 -- Initial Blood Cultures positive for Halfnia Alvei sensitive to Cipro -- Repeat blood cultures were negative -- Infectious disease following Anemia -- May the delutional and/or secondary to surgery -- We are unable to monitor this patient is refusing all blood draws. He states this is because he was so malnourished prior to admission. Elevated blood glucose -- Unable to obtain hemoglobin A1c, lipid panel as patient is still refusing any blood draws or needle sticks. It has been explained to the patient the importance of these tests the patient states that he understands and still refuses. 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 DVT prophylax: Lovenox has been prescribed however the patient is currently refusing Anticipated discharge planning: Patient continues to be difficult and is refusing treatment. Today this includes refusing to allow self wound care to changes bilateral stump wound dressings The patient has some sort of fear of needles and will not allow any blood glucose monitoring, nor will he allow any blood test to be taken in order to monitor his A1c, white cell count, hemoglobin and hematocrit, chemistries or lipids. The patient was on ertapenem however since he lost IV access he has not been able to do his full course of ertapenem however has remained on oral Cipro 750 mg twice a day. The patient's bacteria Halfnia Alvei is sensitive to Cipro. The patient has been afebrile and has no sign of systemic infection. However, we are unable to look at his stump is at this time as he will not allow us to remove the dressings that Suresh put on last week.. We will continue to monitor for any infectious clinical signs as the patient has limited us in this respect. workers compensation examiner is still working on placement for the patient as he is unable to return to the streets with a wound VAC. Because the patient has been extremely difficult to work with and refusing both treatments and examinations it was felt that the patient should have a psych consult. I asked Dr. Oscar Rojas of the psychiatry service to evaluate the patient and at least try to determine if the patient is of sound mind to be able to make his own medical decisions. Patient may need an appointed guardian. Dr. 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 AXIS II None. AXIS III 1. Bilateral amputation. 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 AXIS IV Severe. AXIS V Current global assessment of functioning equal to 50. PLAN: Would recommend offering client as many choices and options for care as possible. I would be happy to re-evaluate the patient if he changes his mind about potential psychiatric treatments for depression, anxiety or impulse control. At this time, the patient is competent to advocate for his care. At this time patient is not a candidate for further surgery on his lower extremities as he is refusing all wound care by Suresh a digital product specialist. Previously Suresh was the only one that could talk him into any treatments. It appears at this point the patient just wants some "boots" to where and a few blankets and he would be happy to go back out on the street. Pain Evaluation: Adequate Pain Control GI Prophylaxis: Not indicated VTE Prophylaxis: Other (patient is refusing DVT prophylaxis) VTE Mechanical Devices: Intermittant Pneumatic CD Resuscitation Status: CPR: Attempt Resuscitation Lennox Zhang MD Jul 26, 2016 21:29
--- NOTE | 2016-07-27 04:16 | NUR ---
non-compliant pt refused assessments from nurse this shift. he has his ortho boots on in bed and would not allow nurse to take them off to look at dressings. from what is visible they appear c/d/i. he did take his antibiotics with his pain medication at bedtime. he would not answer any of the nurses questions. he said he would call if he needed anything and he did not want the nurse to come in and ask him if he wanted more pain medication. safety checks have been done throughout the night, however whenever staff opens pts door to check on him he yells "no body better be coming in!". he has not come out of his room or used his call light for anything this shift. will continue with safety checks.
[2016-07-27] MEDS: Insulin LISPRO 300 Unit/3 mL Inj SUBQ SCH ×4 (08:00→22:00)
--- NOTE | 2016-07-27 08:35 | NUR ---
Yahaira from [facility] called and let us know patient is # 6 on the wait list for swing bed. Updated TAXATION INSPECTOR Addendum: 07/27/16 at 0920 by MARK PARIKH CM [facility], spoke with Kristi esthetician/spa coordinator and she has beds and will consider patient. Faxed to [phone] Updated UR RN and TAXATION INSPECTOR Import Export Agent
--- NOTE | 2016-07-27 13:50 | NUR ---
REFUSING CARE Patient refusing all care except pain medication and PO antibiotics. Eating well, using wheelchair to move about. Will not allow assessment of wounds (wrapped) or blood sugar checks. SW working on discharge plans. Addendum: 07/27/16 at 1852 by ISHMAEL LAZARO RN Patient continues to be non compliant with care for entire shift. Patient is respectful and cooperative with staff but refuses all care.
--- NOTE | 2016-07-27 14:21 | NUR ---
NUTRITION FOLLOW-UP: ASSESS: 51 YO homeless male with sepsis from bilateral forefoot wet gangrene. Pt is s/p bilateral transmetatarsal amputation with multiple lower extremity ulcerations, currently with wound vacs in place. Pt continues to be non-compliant and refuses care frequently. Pt continues with good PO intake. PMHx: Mason, possible diabetes. LABS: Reviewed. Cr 0.59, glu 114, Ca 7.9. MEDS: Reviewed. GI: BM x 1 (07/22) SKIN: bilateral transmetatarsal amputation with multiple lower extremity ulcerations, wound vac in place. Followed by podiatry and wound care. Status of wound healing unknown as pt refused podiatry services. CURRENT WT: 73.9 kg. Admit wt: 77.3 kg. DIET: Diabetic, Glucerna BID and Eliseo BID. PO intake 100% of meals. EST. NEEDS: 8530-9852 kcals (30-35 kcals/kg BW), 90-115 g protein (1.2-1.5 g/kg BW) NUTRITION DIAGNOSIS: 1.) Increased nutrient needs related to increased demand for nutrients for wound healing as evidenced by bilateral transmetatarsal amputation wounds and multiple lower extremity ulcerations--PERSISTS. NUTRITION INTERVENTION: 1.) Continue to send Eliseo and Glucerna BID. MONITOR / EVAL: PO intake, labs, wound healing, nutritional status. Follow per low nutritional risk guidelines.
--- NOTE | 2016-07-27 16:23 | NUR ---
Social Work Discharge Planning: SW spoke to [facility] rep, [phone] who is still reviewing clinical information to determine acceptance status. SW to follow. [place]
--- NOTE | 2016-07-27 17:08 | PROG NOTE ---
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 The patient has been refusing IV antibiotics and blood draws but he has been taking his oral Cipro. Today I found the patient quite a good mood. He was watching TV and anticipating the release of the new audograph operator's name. He states he is having no fevers and chills. No cough, shortness of breath, or chest pain. No abdominal pain. No nausea, vomiting, or diarrhea. He states that his appetite is good. He has been walking around the [place], though I do not think he is supposed to be walking on his feet, but he has been nonetheless and says he has minimal pain. PHYSICAL EXAMINATION: Reveals an afebrile gentleman, temperature 36.8, pulse 88, respiratory rate 18, blood pressure 101/56, saturating well on room air. No acute distress. Lungs are quite clear anteriorly. Cardiac tones regular rate and rhythm. Abdomen soft and nontender. His feet are both wrapped in a complex dressing which he does not want removed and I did not do that. LABORATORY: No labs have been obtained now for almost two weeks at the patient's insistence. Our most recent micro was a culture from July 19 of one of the TMA sites which was negative. Prior to that, of course, we had multiple positive cultures from July 11 from the feet growing Proteus mirabilis and Morganella morganii. Also there was a positive blood culture on July 10 for the Hafnia which grew from multiple sets. IMAGING: No new imaging is available. IMPRESSION: This patient seems to be doing well on just an oral therapy with Cipro which happens to cover all three of the organisms. I would anticipate that he will need six total weeks of Cipro, which will take us through basically the end of July. RECOMMENDATIONS: 1. Continue p.o. Cipro through the end of July. 2. If he were to allow an IV, we might want to give him a short course of ertapenem to supplement the Cipro against these three very formidable gram-negative pathogens, but at this point he seems to be doing okay on just oral Cipro. 3. If blood work was available, of course would like to get a CBC, CMP, and CRP. 4. Infectious Disease will see this patient again July 30. Call if questions.
--- NOTE | 2016-07-28 00:01 | PCM.PNMED ---
Subjective Date of Service Jul 27, 2016 Subjective Patient continues to refuse blood draws and dressing changes. He continues to refuse IV therapy he has no other new complaints. Exam Vital Signs Vital Sign - Last Date Time Temp Pulse Resp B/P Pulse Ox O2 Delivery O2 Flow Rate FiO2 07/25/16 01:39 36.8 88 18 101/56 95 Room Air Intake and Output 07/26/16 07/26/16 07/27/16 Cumulative From/Thru 15:00 23:00 07:00 07/10/16 11:37 - 07/27/16 05:45 Intake Total 800 ml 800 ml 04456 ml Output Total 400 ml 18232 ml Balance 800 ml 400 ml 39693 ml Intake Oral 800 ml 800 ml 05974 ml IV Total 8277 ml Output Urine Total 400 ml 02839 ml Estimated Blood Loss 350 ml # Voids 14 # Bowel Movements 0 6 Exam General: He is in no apparent distress and is lying supine in bed. HEENT: Head is atraumatic normocephalic. Eyes: Pupils are equally round and reactive to light and accommodation. Extraocular muscles are intact. Sclera are white anicteric. Subconjunctival mucosa is pink. Ears and nose are unremarkable. Oropharynx: There is no mucosal lesions, there is no thrush, there is no pharyngitis. Neck: Is supple, there are no nodes, or masses or tenderness evident. Chest: Is clear to auscultation and percussion. There are no rales, rhonchi, wheezes or rubs. Heart: Rate, rhythm is regular. There is no new murmur, rub or gallop. Abdomen: Good bowel sounds are present. Abdomen is soft, nontender, no organomegaly or masses were appreciated. Extremities: Both transmetatarsal amputation sites are covered with sterile Kerlix and Quentin wrap. The dressings remain clean dry and intact. There is no foul oder. He will not allow dressing change. Neurologic: There are no focal neurological deficits. Cranial nerves II through XII are intact. There are no sensory or motor deficits. There are minimal choreiform type movements. However, movement slightly aberrant and speech is slightly slowed and deliberate. Psychiatric: Patients mood is calm and shows no sign of agitation. Genital: Deferred Rectal: Deferred Lab and Diagnostics Microbiology Microbiology 07/10/16 Blood Culture - Final, Complete Hafnia Alvei 07/10/16 Urine Culture - Final, Complete Mixed Urogenital Beth 07/11/16 Gram Stain - Final, Resulted 07/11/16 Culture & Sensitivity - Preliminary, Resulted Insufficient growth, culture is reinc... 07/11/16 Anaerobic Culture, Resulted Pending Microbiology MANUEL CULTURE BLOOD Final 07/13/16-624 Organism 1 BETITO MORENO GRAM STAIN RESULT GRAM NEGATIVE RODS BC BOTTLE Isolated from Anaerobic Bottle of Set Drawn DATE CALLED: 07/11/16 TIME CALLED: 0335 CALLED BY: LUCA FLOOR/DOCTOR: ART/GRETCHEN Stewart, RN BC READ BACK Y TYPE OF DRAW PERIPHERAL DRAW TIME OF POSITIVITY 0300 GRAM STAIN RESULT GRAM NEGATIVE RODS BC BOTTLE2 Isolated from Aerobic Bottle of Set Drawn DATE CALLED: 07/11/16 TIME CALLED: 0530 CALLED BY: CHARLOTTE FLOOR/DOCTOR: MAIA Stewart BC READ BACK Y TYPE OF DRAW PERIPHERAL DRAW TIME OF POSITIVITY 0450 ISOLATED FROM FOUR OF FOUR BOTTLES COLLECTED 07/10 1. BETITO MORENO M.I.C Interp --------- ------ * AMIKACIN <=2 S * AMPICILLIN R * AMPICILLIN/SULBACTAM R * CEFAZOLIN >=64 R * CEFEPIME <=1 S * CEFOXITIN R * CEFTRIAXONE <=1 S * CIPROFLOXACIN <=0.25 S * GENTAMICIN <=1 S Name: ZHANG FORD Age/Sex: 51/M Attend Dr: Nazia Carmichael MD Acct: [id number] Unit: [id number] Status: ADM IN Location: [facility] [place] 1015-1 Re07/10/16 Disch: Specimen: [id number] Collected: 07/13/16 Status: COMP Req#: [id number] Received: 07/13/16 Source: BLOOD Sp Desc : ADALID Lau Dr: Simone Song DPM Ordered: BC Comments: Collected by Nurse/Unit? Y/N N Comment: PATIENT IN OR Procedure Result Verified Site Microbiology MANUEL CULTURE BLOOD Final 07/18/16 NO GROWTH AFTER 5 DAYS X-Rays, CTs and MRIs PROCEDURE: X-RAY CHEST ONE VIEW, PORTABLE ([id number]) INDICATIONS: sepsis TECHNIQUE: One view of the chest was acquired. COMPARISON: None. FINDINGS: Surgical changes and devices: None. Lungs and pleura: No pleural effusions or pneumothorax. Lungs are clear. Mediastinum: Mediastinal contours appear normal. Heart size is normal. Bones and chest wall: No suspicious bony lesions. Overlying soft tissues appear unremarkable. IMPRESSION: 1. No acute cardiopulmonary disease. Dictated by: Medardo Mohan M.D. on 07/10/2016 at 12:17 Approved by: Medardo Mohan M.D. on 07/10/2016 at 12:1 Cardiac Echo Impressions Echocardiogram Report Name: ZHANG FORD Study Date: 07/14/2016 Height: 74 in Hospital Exam Location: [facility] Weight: 170 lb Gender: Male BSA: 2.0 m2 : 1965 Age: 51 yrs BP: 109/66 mmHg Reason For Study: BACTEREMIA, MURMUR Ordering Physician: HOSPITALIST SVHPerformed By: Job Kellogg Referring Physician: ISHMAEL NORTH Interpretation Summary 1. Normal left ventricular size, wall thickness and systolic function with an estimated EF of 60-65% Mildly elevated outflow tract velocities 2. Normal right ventricular size and systolic function 3. No significant valvular regurgitation. No valvular stenosis appreciated. 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 Patient also occasionally refuses his by mouth dosing. Compliance is a major issue in the care of this patient. 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 Repeat blood cultures on 07/13/2016 are negative -- Wound VACs have been removed from both lower extremities. Bacteremia -gram negative, +cx from 07/10 -- Initial Blood Cultures positive for Halfnia Alvei sensitive to Cipro -- Repeat blood cultures were negative -- Infectious disease following Anemia -- May the delutional and/or secondary to surgery -- We are unable to monitor this patient is refusing all blood draws. He states this is because he was so malnourished prior to admission. Elevated blood glucose -- Unable to obtain hemoglobin A1c, lipid panel as patient is still refusing any blood draws or needle sticks. It has been explained to the patient the importance of these tests the patient states that he understands and still refuses. Chronic [place] dementia, unknown past medication - No chorea observed. 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 DVT prophylax: Lovenox has been prescribed however the patient is currently refusing Anticipated discharge planning: Patient continues to be difficult and is refusing treatment. Today this includes refusing to allow self wound care to changes bilateral stump wound dressings The patient has some sort of fear of needles and will not allow any blood glucose monitoring, nor will he allow any blood test to be taken in order to monitor his A1c, white cell count, hemoglobin and hematocrit, chemistries or lipids. The patient was on ertapenem however since he lost IV access he has not been able to do his full course of ertapenem however has remained on oral Cipro 750 mg twice a day. The patient's bacteria Halfnia Alvei is sensitive to Cipro. The patient has been afebrile and has no sign of systemic infection. However, we are unable to look at his stump is at this time as he will not allow us to remove the dressings that Suresh put on last week.. We will continue to monitor for any infectious clinical signs as the patient has limited us in this respect. weigh and charge worker is still working on placement for the patient as he is unable to return to the streets with a wound VAC. Because the patient has been extremely difficult to work with and refusing both treatments and examinations it was felt that the patient should have a psych consult. I asked Dr. Oscar Rojas of the psychiatry service to evaluate the patient and at least try to determine if the patient is of sound mind to be able to make his own medical decisions. Patient may need an appointed guardian. Dr. 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 AXIS II None. AXIS III 1. Bilateral amputation. 2. [place]'s chorea by history. AXIS IV Severe. AXIS V Current global assessment of functioning equal to 50. PLAN: Would recommend offering client as many choices and options for care as possible. I would be happy to re-evaluate the patient if he changes his mind about potential psychiatric treatments for depression, anxiety or impulse control. At this time, the patient is competent to advocate for his care. At this time patient is not a candidate for further surgery on his lower extremities as he is refusing all wound care by Suresh a senior computer specialist. Previously Suresh was the only one that could talk him into any treatments. It appears at this point the patient just wants some "boots" to where and a few blankets and he would be happy to go back out on the street. Dr. North recommends continue Cipro through the end of July. Pain Evaluation: Adequate Pain Control GI Prophylaxis: Not indicated VTE Prophylaxis: Other (patient is refusing DVT prophylaxis) VTE Mechanical Devices: Intermittant Pneumatic CD Resuscitation Status: CPR: Attempt Resuscitation Lennox Zhang MD Jul 28, 2016 00:01
--- NOTE | 2016-07-28 06:26 | NUR ---
refusing care pt refused all care and assessments this shift. he took his antibiotic and his pain medication but nothing else. he came out in to the hallway in his wc when he needed anything. he was polite this shift. but adamant he did not want any one to touch him or look at his dressings. hourly rounding continues.
[2016-07-28] MEDS: Insulin LISPRO 300 Unit/3 mL Inj SUBQ SCH ×4 (08:00→22:00)
--- NOTE | 2016-07-28 13:42 | NUR ---
NONCOMPLIANCE WITH CARE Patient continues to refuse all care except pain medications and antibiotics. Plan to d/c patient today, clothing and toiletries offered but patient refused. Patient cooperative with staff, SW working on placement, wheelchair, and boots.
[2016-07-28] MEDS ORDERED: 0.9% NaCl + KCl 20 mEq/L 1,000 ML IV SCH (17:05)
[2016-07-28] MEDS ORDERED: Piperacillin-Tazo 3.375 Gm Inj 3.375 GM in Dextrose 5% Minibag Plus 50 ML IV SCH (17:05)
--- NOTE | 2016-07-28 17:34 | NUR ---
Social Work Continued Discharge Planning: SW following for discharge plan. Patient denied placement at [facility] at this time. SW spoke with [facility], and [facility] in [place], admissions reps who states that patient doesn't meet criteria for placement at facility. Patient unable to be accepted. Patient being followed at for swing bed but not bed available at this time. SW contacted Josias Ulrich, to assist with providing a gena wheelchair for patient. Josias states having DME available and delivered item at 3pm today. Wheelchair available at bedside. SW contacted [employer], and spoke to rep Vanna regarding homeless resources in the community which may benefit patient. Vanna discussed intermediate resource at [facility] and states patient able to attend intermediate as a walk in and doesn't need to report to [facility] [employer]. Rep discussed housing programs which assist homeless patient's and that patient may attend on /// from 10-3pm for possible housing community assistance. SW met with patient at bedside to discuss discharge resources for intermediate at the [facility], [place] housing assistance program, and [facility]. Patient states not wanting to discharge to any intermediate recommended nor seek assistance from [facility] [employer]. SW inquired plans for discharge. Patient states wanting to discharge to homelessness. Patient states never having any particular place/street where he lodged at and wishes to be discharged. Helder deemed patient competent to make his own decisions. SW inquired if contact to family able to be made to discuss plans of care. Patient denied and requested that SW do not call family to discuss plans of care. Risk contacted and met with discharge planning team and MD. Behavioral paperwork signed and patient in agreement to all treatments at this time. Discharge held as patient in agreement to treatment. SW to re-discuss discharge resources for intermediate and community action. Plan of care remains as return to homelessness vs swing bed. Wheelchair at bedside. SW to follow. Gregorio Bee
--- NOTE | 2016-07-28 17:38 | NUR ---
Wound Care Patient suddenly agreeable to wound care services. Seen for dressing changes at bedside, All wounds are cleaned with saline after sharp debridement of bilateral forefoot wounds with a #10 blade. Redressed with calmoseptine to protect periwound skin, silver based dressing over all wounds then 4x4 gauze, Kerlix wrap and coban. Wounds are stable and would be graft worthy at this time, discussed case with Dr Song and Dr Duncan Brito to round on patient in AM to discuss surgery. Will need NPWT if grafted.
[2016-07-28] MEDS ORDERED: LORazepam 1 mg Tablet PO ONE (18:50)
[2016-07-28] MEDS ORDERED: LORazepam 1 mg Tablet PO PRN (18:50)
--- NOTE | 2016-07-28 19:17 | NUR ---
BEHAVIOR CONTRACT Patient signer behavior contract stating he will comply with care and allow staff to take care of him. This was done just before patient was to be discharged.. Patient will stay but is already wanting to postpone treatment until morning. Patient informed of his agreement and reinforced importance of patient complying with care.
[2016-07-28] MEDS: Meropenem Inj 2,000 MG in 0.9% Sodium Chloride 100 ML IV SCH (19:30)
[2016-07-28 20:26] VITALS: BP 94/55; PULSE 74; RESP 16; O2SAT 98
--- NOTE | 2016-07-28 23:36 | PCM.PNMED ---
Subjective Date of Service Jul 28, 2016 Subjective Throughout most of the day up until 3 PM in the afternoon patient refused all care. He refused IV medication, refused blood draws, he refused Accu-Cheks, he refused dressing changes despite being approached by Suresh a wound care nurse numerous times today. Therefore, at 3:30 PM patient was to be discharged. A wheelchair was brought to his room. A sleeping bag in case he needed it. Suresh even bought him a pair of jeans and boots to wear the purchase at [facility]. The patient refused to wear the boots but did put the jeans on. At the very same time that he was about to be discharged from the hospital he claimed that he would agree to do everything that he was supposed to do here he agreed with IV medications he agreed with Accu-Cheks C agreed with physical exam see agreed with dressing changes and he agreed with allowing the housekeeping crew to clean his room. Patient was seen by Cristina of risk management and signed a behavior contract so that he could be treated appropriately for his condition. Exam Vital Signs Vital Sign - Last Date Time Temp Pulse Resp B/P Pulse Ox O2 Delivery O2 Flow Rate FiO2 07/28/16 20:26 36.8 74 16 94/55 98 Room Air Intake and Output 07/27/16 07/27/16 07/28/16 Cumulative From/Thru 15:00 23:00 07:00 07/10/16 11:37 - 07/28/16 06:02 Intake Total 672 ml 513 ml 65951 ml Output Total 1 ml 55194 ml Balance 672 ml 512 ml 73013 ml Intake Oral 672 ml 513 ml 59439 ml IV Total 8277 ml Output Urine Total 1 ml 87722 ml Estimated Blood Loss 350 ml # Voids 14 # Bowel Movements 0 1 7 Exam General: He is in minimal distress and is lying supine in bed after agreeing to stay in the hospital.. HEENT: Head is atraumatic normocephalic. Eyes: Pupils are equally round and reactive to light and accommodation. Extraocular muscles are intact. Sclera are white anicteric. Subconjunctival mucosa is pink. Ears and nose are unremarkable. Oropharynx: There is no mucosal lesions, there is no thrush, there is no pharyngitis. Neck: Is supple, there are no nodes, or masses or tenderness evident. Chest: Is clear to auscultation and percussion. There are no rales, rhonchi, wheezes or rubs. Heart: Rate, rhythm is regular. There is no new murmur, rub or gallop. Abdomen: Good bowel sounds are present. Abdomen is soft, nontender, no organomegaly or masses were appreciated. Extremities: Both transmetatarsal amputation sites were examined with Suresh research quality assurance specialist. There are bilateral transmetatarsal open wounds. There is no necrotic tissue and there is some early granulation tissue with good blood supply. Neurologic: There are no focal neurological deficits. Cranial nerves II through XII are intact. There are no sensory or motor deficits. There are minimal choreiform type movements. However, movement slightly aberrant and speech is slightly slowed and deliberate. Psychiatric: Patients mood is calm and shows no sign of agitation. Genital: Deferred Rectal: Deferred Lab and Diagnostics The patient refused earlier today. However, he agrees to blood draws in a.m. Microbiology Microbiology 07/10/16 Blood Culture - Final, Complete Hafnia Alvei 07/10/16 Urine Culture - Final, Complete Mixed Urogenital Beth 07/11/16 Gram Stain - Final, Resulted 07/11/16 Culture & Sensitivity - Preliminary, Resulted Insufficient growth, culture is reinc... 07/11/16 Anaerobic Culture, Resulted Pending Microbiology MANUEL CULTURE BLOOD Final 07/13/16-0625 Organism 1 HAFNIA ALVEI GRAM STAIN RESULT GRAM NEGATIVE RODS BC BOTTLE Isolated from Anaerobic Bottle of Set Drawn DATE CALLED: 07/11/16 TIME CALLED: 0335 CALLED BY: LUCA FLOOR/DOCTOR: ART/GRETCHEN Stewart, RN BC READ BACK Y TYPE OF DRAW PERIPHERAL DRAW TIME OF POSITIVITY 0300 GRAM STAIN RESULT GRAM NEGATIVE RODS BC BOTTLE2 Isolated from Aerobic Bottle of Set Drawn DATE CALLED: 07/11/16 TIME CALLED: 0530 CALLED BY: CHARLOTTE FLOOR/DOCTOR: ART/GRETCHEN C BC READ BACK Y TYPE OF DRAW PERIPHERAL DRAW TIME OF POSITIVITY 0450 ISOLATED FROM FOUR OF FOUR BOTTLES COLLECTED 07/10 1. BETITO Guillaume Interp --------- ------ * AMIKACIN <=2 S * AMPICILLIN R * AMPICILLIN/SULBACTAM R * CEFAZOLIN >=64 R * CEFEPIME <=1 S * CEFOXITIN R * CEFTRIAXONE <=1 S * CIPROFLOXACIN <=0.25 S * GENTAMICIN <=1 S Name: ZHANG FORD Age/Sex: 51/M Attend Dr: Nazia Carmichael MD Acct: [id number] Unit: [id number] Status: ADM IN Location: [facility] [place] 1015-1 Re07/10/16 Disch: Specimen: [id number] Collected: 07/13/16 Status: COMP Req#: [id number] Received: 07/13/16 Source: BLOOD Sp Desc : ADALID Lau Dr: Simone Song DPM Ordered: BONIFACIO Comments: Collected by Nurse/Unit? Y/N N Comment: PATIENT IN OR Procedure Result Verified Site Microbiology MANUEL CULTURE BLOOD Final 07/18/16-1923 NO GROWTH AFTER 5 DAYS X-Rays, CTs and MRIs PROCEDURE: X-RAY CHEST ONE VIEW, PORTABLE ([id number]) INDICATIONS: sepsis TECHNIQUE: One view of the chest was acquired. COMPARISON: None. FINDINGS: Surgical changes and devices: None. Lungs and pleura: No pleural effusions or pneumothorax. Lungs are clear. Mediastinum: Mediastinal contours appear normal. Heart size is normal. Bones and chest wall: No suspicious bony lesions. Overlying soft tissues appear unremarkable. IMPRESSION: 1. No acute cardiopulmonary disease. Dictated by: Medardo Mohan M.D. on 07/10/2016 at 12:17 Approved by: Medardo Mohan M.D. on 07/10/2016 at 12:1 Cardiac Echo Impressions Echocardiogram Report Name: ZHANG FORD Study Date: 07/14/2016 Height: 74 in Hospital Exam Location: [facility] Weight: 170 lb Gender: Male BSA: 2.0 m2 : 1965 Age: 51 yrs BP: 109/66 mmHg Reason For Study: BACTEREMIA, MURMUR Ordering Physician: HOSPITALIST SVHPerformed By: Job Kellogg Referring Physician: ISHMAEL NORTH Interpretation Summary 1. Normal left ventricular size, wall thickness and systolic function with an estimated EF of 60-65% Mildly elevated outflow tract velocities 2. Normal right ventricular size and systolic function 3. No significant valvular regurgitation. No valvular stenosis appreciated. 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 Patient also occasionally refuses his by mouth dosing. Compliance is a major issue in the care of this patient. However, he has now signed a behavior contract and agrees to comply with his treatment plan. 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 Repeat blood cultures on 07/13/2016 are negative -- Wound VACs have been removed from both lower extremities. Bacteremia -gram negative, +cx from 07/10 -- Initial Blood Cultures positive for Halfnia Alvei sensitive to Cipro and meropenem -- Repeat blood cultures were negative -- Infectious disease following Anemia -- May the delutional and/or secondary to surgery -- We have been unable to monitor this patient is refusing all blood draws. He states this is because he was so malnourished prior to admission. He now agrees to allow us to check blood will order daily blood tests starting in a.m. Elevated blood glucose -- We will check hemoglobin A1c, and lipid panel as patient is still refusing any blood draws or needle sticks. Chronic [place] dementia, unknown past medication - No chorea observed. 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 Due to compliance problem psychiatry consult was obtained . Dr. 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 AXIS II None. AXIS III 1. Bilateral amputation. 2. [place]'s chorea by history. AXIS IV Severe. AXIS V Current global assessment of functioning equal to 50. PLAN: Would recommend offering client as many choices and options for care as possible. I would be happy to re-evaluate the patient if he changes his mind about potential psychiatric treatments for depression, anxiety or impulse control. At this time, the patient is competent to advocate for his care. Disposition: Patient is now agreeable to any treatment is recommended for his improvement which would include IV therapy blood draws surgery etc. Dr. Bradshaw will be contacted for need for further surgical debridement of wounds and possible skin graft therapy. Pain Evaluation: Adequate Pain Control GI Prophylaxis: Not indicated VTE Prophylaxis: Other (patient is refusing DVT prophylaxis) VTE Mechanical Devices: Intermittant Pneumatic CD Resuscitation Status: CPR: Attempt Resuscitation Lennox Zhang MD Jul 28, 2016 23:36
--- NOTE | 2016-07-29 01:06 | NUR ---
Pt required to receive IV ABX per behavioral contracts, threatened AMA after being offered IV starts by RN and therapy. PT leaves AMA after IV start failed. notified 010 by telephone. Addendum: 07/29/16 at 0216 by BENNY FU RN Pt gathered his belongings/clothing and said to "throw the rest away". He was in his own wheel chair, escorted out of the building by 2 security guards.
[2016-07-29] MEDS: Meropenem Inj 2,000 MG in 0.9% Sodium Chloride 100 ML IV SCH (01:45)
--- NOTE | 2016-07-30 01:50 | PCM.DC.MED ---
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 Song podiatry and Dr. North of infectious disease. Procedures XRay, CTs & MRIs PROCEDURE: X-RAY CHEST ONE VIEW, PORTABLE ([id number]) INDICATIONS: sepsis TECHNIQUE: One view of the chest was acquired. COMPARISON: None. FINDINGS: Surgical changes and devices: None. Lungs and pleura: No pleural effusions or pneumothorax. Lungs are clear. Mediastinum: Mediastinal contours appear normal. Heart size is normal. Bones and chest wall: No suspicious bony lesions. Overlying soft tissues appear unremarkable. IMPRESSION: 1. No acute cardiopulmonary disease. Dictated by: Medardo Mohan M.D. on 07/10/2016 at 12:17 Approved by: Medardo Mohan M.D. on 07/10/2016 at 12:1 Cardiac Echo Impression Echocardiogram Report Name: ZHANG FORD Study Date: 07/14/2016 Height: 74 in Hospital Exam Location: [facility] Weight: 170 lb Gender: Male BSA: 2.0 m2 : 1965 Age: 51 yrs BP: 109/66 mmHg Reason For Study: BACTEREMIA, MURMUR Ordering Physician: HOSPITALIST SVHPerformed By: Job Kellogg Referring Physician: ISHMAEL NORTH Interpretation Summary 1. Normal left ventricular size, wall thickness and systolic function with an estimated EF of 60-65% Mildly elevated outflow tract velocities 2. Normal right ventricular size and systolic function 3. No significant valvular regurgitation. No valvular stenosis appreciated. Brief History The patient is an unfortunate, 51-year-old homeless gentleman who has underlying Barranquitas's chorea. 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 He came to the ED on the and complained of bilateral foot pain. Little was done and the patient was discharged but he returned the following day, after having been [facility] to a [facility] where it was discovered that he had not taken his shoes andsocks off for a period of weeks or perhaps months. At the homeless [facility] apparently, a colleague helped him take off his shoes and it was discovered that his forefeet were basically gangrenous. At that point, he returned back to schedule dialysis for emergency room and underwent transmetatarsal [facility] both feet 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 Patient also occasionally refuses his by mouth dosing. Compliance is a major issue in the care of this patient. However, he has now signed a behavior contract and agrees to comply with his treatment plan. 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 Repeat blood cultures on 07/13/2016 are negative -- Wound VACs have been removed from both lower extremities. Bacteremia -gram negative, +cx from 07/10 -- Initial Blood Cultures positive for Halfnia Alvei sensitive to Cipro and meropenem -- Repeat blood cultures were negative -- Infectious disease following Anemia -- May the delutional and/or secondary to surgery -- We have been unable to monitor this patient is refusing all blood draws. He states this is because he was so malnourished prior to admission. He now agrees to allow us to check blood will order daily blood tests starting in a.m. Elevated blood glucose -- We will check hemoglobin A1c, and lipid panel as patient is still refusing any blood draws or needle sticks. Chronic Barranquitas dementia, unknown past medication - No chorea observed. 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 Due to compliance problem psychiatry consult was obtained . Dr. 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 AXIS II None. AXIS III 1. Bilateral amputation. 2. Barranquitas's chorea by history. AXIS IV Severe. AXIS V Current global assessment of functioning equal to 50. PLAN: Would recommend offering client as many choices and options for care as possible. I would be happy to re-evaluate the patient if he changes his mind about potential psychiatric treatments for depression, anxiety or impulse control. At this time, the patient is competent to advocate for his care. Disposition: Patient left the hospital AGAINST MEDICAL ADVICE Exam Vital Signs (Last) Date Time Temp Pulse Resp B/P Pulse Ox O2 Delivery O2 Flow Rate FiO2 07/28/16 20:26 36.8 74 16 94/55 98 Room Air Exam The patient Left hospital AGAINST MEDICAL ADVICE before he could be examined Test 07/10/16 11:22 07/10/16 12:08 07/10/16 18:20 07/13/16 18:45 Magnesium Level 2.0mg/dL (1.6-2.6) Total Bilirubin 0.4mg/dL (0.0-1.2) Aspartate Amino Transf (AST/SGOT) 39U/L (0-50) Alanine Aminotransferase (ALT/SGPT) 35U/L (0-44) Alkaline Phosphatase 100U/L (25-150) Troponin T 0.010ug/L (0.0-0.011) Total Protein 7.3g/dL (6.4-8.4) Albumin 3.1g/dL (3.4-5.0) Prothrombin Time 13.3sec (8.1-12.5) Prothromb Time International Ratio 1.24ratio Lactic Acid Level 2.0mmol/L (0.4-2.0) Urine Color Yellow (YELLOW) Urine Appearance Slightly cloudy Urine pH 5.5 (5.0-8.0) Urine Specific [place] 1.025 (1.003-1.035) Urine Protein Negativemg/dL (NEG,TRACE) Urine Glucose (UA) Negativemg/dL (NEGATIVE) Urine Ketones 15mg/dL (NEGATIVE) Urine Occult Blood Large (NEGATIVE) Urine Nitrite Positive (NEGATIVE) Urine Bilirubin Negative (NEGATIVE) Urine Urobilinogen 1.0mg/dL (NORMAL) Urine Leukocyte Esterase Negative (NEGATIVE) Urine RBC 3-10/hpf (0-2) Urine WBC 0-5/hpf (0-5) Urine Epithelial Cells None/hpf (NONE-MOD) Urine Crystals None seen (NONE SEEN) Urine Bacteria Moderate/hpf (NONE-FEW) Urine Hyaline Casts None/lpf (NONE) Urine Granular Casts None seen (NONE SEEN) Urine Waxy Casts None seen (NONE SEEN) Urine Red Blood Cell Casts None seen (NONE SEEN) Urine White Blood Cell Casts None seen (NONE SEEN) Urine Mucus Present (None Seen) Urine Trichomonas None seen (NONE SEEN) Urine Yeast None (NONE SEEN) Urinalysis Comment None Urine Culture Reflexed Indicated White Blood Count 10.0th/mm3 (3.8-10.1) Red Blood Count 2.57mil/mm3 (4.40-5.80) Hemoglobin 7.6g/dL (13.8-17.2) Hematocrit 23.4% (41.0-50.0) Mean Corpuscular Volume 91.1fL (81-100) Mean Corpuscular Hemoglobin 29.6pg (27.0-35.0) Mean Corpuscular Hemoglobin Concent 32.5% (32.0-37.0) Red Cell Distribution Width 12.4% (12.3-15.4) Platelet Count 465bil/L (150-400) Neutrophils (%) (Auto) 67.5% (40-74) Lymphocytes (%) (Auto) 21.6% (14-46) Monocytes (%) (Auto) 8.1% (4-12) Eosinophils (%) (Auto) 0.1% (0-5) Basophils (%) (Auto) 0.5% (0-3) Hold Blue Top Tube Received (Received) Sodium Level 136mEq/L (134-144) Potassium Level 4.1mEq/L (3.5-5.2) Chloride Level 98mEq/L (97-108) Carbon Dioxide Level 28mmol/L (18-29) Blood Urea Nitrogen 6mg/dL (6-24) Creatinine 0.59mg/dL (0.76-1.27) Estimat Glomerular Filtration Rate 153mL/min (>59) Glucose Level 114mg/dL (60-99) Calcium Level 7.9mg/dL (8.5-10.1) Hold [place] Top Tube Received (Received) Hold Curiel Top Tube Received (Received) Vancomycin Level Trough 5.6mcg/mL Microbiology Results Microbiology 07/10/16 Blood Culture - Final, Complete Hafnia Alvei 07/10/16 Urine Culture - Final, Complete Mixed Urogenital Beth 07/11/16 Gram Stain - Final, Resulted 07/11/16 Culture & Sensitivity - Preliminary, Resulted Insufficient growth, culture is reinc... 07/11/16 Anaerobic Culture, Resulted Pending Microbiology MANUEL CULTURE BLOOD Final 07/13/16-624 Organism 1 BETITO MORENO GRAM STAIN RESULT GRAM NEGATIVE RODS BC BOTTLE Isolated from Anaerobic Bottle of Set Drawn DATE CALLED: 07/11/16 TIME CALLED: 0335 CALLED BY: [place] FLOOR/DOCTOR: ART/GRETCHEN Stewart, RN BC READ BACK Y TYPE OF DRAW PERIPHERAL DRAW TIME OF POSITIVITY 0300 GRAM STAIN RESULT GRAM NEGATIVE RODS BC BOTTLE2 Isolated from Aerobic Bottle of Set Drawn DATE CALLED: 07/11/16 TIME CALLED: 0530 CALLED BY: [place] FLOOR/DOCTOR: MAIA Stewart BC READ BACK Y TYPE OF DRAW PERIPHERAL DRAW TIME OF POSITIVITY 0450 ISOLATED FROM FOUR OF FOUR BOTTLES COLLECTED 07/10 1. BETITO TIFFANIE Guillaume Interp --------- ------ * AMIKACIN <=2 S * AMPICILLIN R * AMPICILLIN/SULBACTAM R * CEFAZOLIN >=64 R * CEFEPIME <=1 S * CEFOXITIN R * CEFTRIAXONE <=1 S * CIPROFLOXACIN <=0.25 S * GENTAMICIN <=1 S Name: ZHANG FORD Age/Sex: 51/M Attend Dr: Nazia Carmichael MD Acct: [id number] Unit: [id number] Status: ADM IN Location: [facility] [place] 1015-1 Re07/10/16 Disch: Specimen: [id number] Collected: 07/13/16 Status: COMP Req#: [id number] Received: 07/13/16 Source: BLOOD Sp Desc : ADALID Lau Dr: Simone Song DPM Ordered: BONIFACIO Comments: Collected by Nurse/Unit? Y/N N Comment: PATIENT IN OR Procedure Result Verified Site Microbiology MANUEL CULTURE BLOOD Final 07/18/16 NO GROWTH AFTER 5 DAYS Discharge Medications Discharge Medications Acetaminophen (Acetaminophen) 325 Mg Tablet 325 MG PO Q4H (Reported) As needed Hydrocodone-Acetaminophen 10-300 mg (Hydrocodone-Acetaminophen 10-300 mg) 1 Each Tablet 1 TABLET PO Q4H PRN PRN For Pain (Reported) Followup Plan Disposition: Patient left the hospital AGAINST MEDICAL ADVICE. Follow-up plan Patient left the hospital AGAINST MEDICAL ADVICE. Lennox Zhang MD Jul 30, 2016 01:50
== END 2016-07-29 00:30 | disposition left against medical advice (07) | DRG 710 ==
LOC: SED 11:08 → EDBD 11:08 → OSC 14:14
PROVIDERS: ADMIT Urology; ATTEND Urology
PROC: 0Y6N0ZB Detachment at Left Foot, Partial 2nd Ray, Open Approach (ICD-10-PCS; 2016-07-11)
PROC: 0Y6N0ZC Detachment at Left Foot, Partial 3rd Ray, Open Approach (ICD-10-PCS; 2016-07-11)
PROC: 0Y6N0ZD Detachment at Left Foot, Partial 4th Ray, Open Approach (ICD-10-PCS; 2016-07-11)
PROC: 0Y6N0ZF Detachment at Left Foot, Partial 5th Ray, Open Approach (ICD-10-PCS; 2016-07-11)
PROC: 0Y6M0Z9 Detachment at Right Foot, Partial 1st Ray, Open Approach (ICD-10-PCS; 2016-07-11)
PROC: 0Y6M0ZB Detachment at Right Foot, Partial 2nd Ray, Open Approach (ICD-10-PCS; 2016-07-11)
PROC: 0Y6M0ZC Detachment at Right Foot, Partial 3rd Ray, Open Approach (ICD-10-PCS; 2016-07-11)
PROC: 0Y6M0ZD Detachment at Right Foot, Partial 4th Ray, Open Approach (ICD-10-PCS; 2016-07-11)
PROC: 0Y6M0ZF Detachment at Right Foot, Partial 5th Ray, Open Approach (ICD-10-PCS; 2016-07-11)
PROC: 0Y6N0Z9 Detachment at Left Foot, Partial 1st Ray, Open Approach (ICD-10-PCS; principal; 2016-07-11 10:30)
PROC: 0JBR0ZZ Excision of Left Foot Subcutaneous Tissue and Fascia, Open Approach (ICD-10-PCS; 2016-07-13)
PROC: 0JBQ0ZZ Excision of Right Foot Subcutaneous Tissue and Fascia, Open Approach (ICD-10-PCS; 2016-07-13)
DX: A41.59 Other Gram-negative sepsis (principal); I96 Gangrene, not elsewhere classified; G10 Huntington's disease; F02.80 Dementia in other diseases classified elsewhere, unspecified severity, without behavioral disturbance, psychotic disturbance, mood disturbance, and anxiety; R73.9 Hyperglycemia, unspecified; D64.9 Anemia, unspecified; B96.4 Proteus (mirabilis) (morganii) as the cause of diseases classified elsewhere; Z59.0 Homelessness

== ENCOUNTER 2016-07-29 01:47 | Emergency (ER) | payer OTHER ==
[~2016-07-29] VITALS: Ht 193 cm; Wt 81.8 kg
[~2016-07-29 01:47] MED LIST: ACET325T51 PO; HYDR-3089 PO
[2016-07-29 02:00] VITALS: BP 120/70; PULSE 90; RESP 16; O2SAT 99
--- NOTE | 2016-07-29 02:06 | ED.REPORT ---
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 Patient was meant to be discharged this afternoon, but the patient agreed to finally undergo medical treatment once he was faced being discharged. He signed a behavior contract with risk management that stated he would comply with care. However, the patient later became angry during an IV start and left AMA. The patient states that he would now like to be re-admitted to the hospital to have a "needle in him". He states that "they took my arm, but they were unable to find a vein" and "I would like an IV now". Patient claims that he been taking his medications as instructed. He states that it is "tough to be out there" and that he was shocked once he left the hospital. Patient reports that he does not have any real boots and he has difficulty getting around. He reports ongoing pain in his feet. He states that he fell out of his wheelchair this evening, and that he now has a headache. Patient denies loss of consciousness. Patient states that his behavior is "good", "and I didn't swear or anything". Patient now guarantees that he will comply with medical care. He reports that his father from Bethel's Disease and he is concerned that he has this as well. The patient reportedly has a son that he would like to call, but he states that he left the phone number somewhere. We have no valid numbers for his family, and the only number he has given us is listed as disconnected. Nursing Notes Stated Complaint: FALL Chief Complaint: General Complaint Nursing Notes Reviewed: Yes Allergies: Coded Allergies: No Known Allergies (Unverified , 07/29/16) Scheduled Acetaminophen (Acetaminophen) 325 Mg Tablet 325 MG PO Q4H Scheduled PRN Hydrocodone-Acetaminophen 10-300 mg (Hydrocodone-Acetaminophen 10-300 mg) 1 Each Tablet 1 TABLET PO Q4H PRN PRN For Pain General Time Seen by MD: 02:06 Chief Complaint Headache, Other (seeking readmission to hospital) Hx Obtained From: Patient Arrived By: Wheelchair Sudden in Onset?: No Onset Occurred: 1 - 4 hours ago Symptom Duration: Since onset Caused by: Fall on ground Location: : Head Quality: Painful Severity: Current: Mild Severity: Maximum: Mild Recent Healthcare: No recent doctor visit, No recent hospitalization Similar Sx Previous: No Past Medical History Past Medical History Admitted for bilateral foot gangrene from 07/10/2016-07/28/2016. Patient was to be discharged on 07/28 for medical noncompliance, but the patient agreed to sign a behavior contract and seek treatment. He later left AMA later in the ED and can no longer be admitted to [facility]. 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 Physical Exam Vital Signs Vital Signs Date Time Temp Pulse Resp B/P Pulse Ox O2 Delivery O2 Flow Rate FiO2 07/29/16 03:03 36.5 90 16 120/70 99 Room Air 07/29/16 02:00 36.5 90 16 120/70 99 Room Air Initial VS: Reviewed Skin: Warm, Dry, No cyanosis Psychiatric: Mood/affect normal, Behavior normal General/Constitutional: Awake, Alert Appearance / Presentation: Positive: Hygiene poor disheveled, rambling and disconnected speech, not very focused Head / Eyes: Atraumatic, Normocephalic, PERRL Trauma - General: Negative: Contusion, Hematoma ENT: Airway patent Neck: Supple, Non-tender, No midline vertebral tend Respiratory / Chest: Breath sounds NL, Breath sounds = bilat, No respiratory distress Cardiovascular: Heart rate NL, Regular rhythm Upper Extremities Upper Extremity / MS: No deformity, Neurologic intact Ankle/Foot: Feet are dry and in clean bandages Neurologic: Oriented X3, Speech NL Movement Abnormality: Positive: Chorea (obvious choreiform movements) Re-Eval/Medical Decision Med Decision/Clinical Course 51-year-old with significant behavioral issues, 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 He presents wishing readmission to the hospital, after leaving AMA, after violating behavioral contract. His history in the hospital was one of constant resistance to efforts to treat him, and ultimately, we are unable to administer treatment due to his failure to cooperate. He left today before even could be signed out AGAINST MEDICAL ADVICE. He states now that he wants to cooperate, but he is made that statement numerous times and it is not resulted in any change in behavior. Discussed with the medicine attending and they feel that there is no therapeutic value to admitting him here. He has no acute emergent medical issue requiring admission. His interests would certainly be served by being admitted and cooperating, but that appears to be impossible to current circumstance. He is discharged in stable condition. Source of Hx: Old records Time of Eval: 02:32 Re-Evaluation/Progress Note: Informed the patient that he cannot be admitted to [facility]. He can stay in the ED until it is light outside and then call his son. Hopefully, they can take him to another facility for hospital admission. Patient understands and agrees with this plan. All questions addressed. Time of Eval: 02:37 Re-Evaluation/Progress Note: Patient does not have the number for his son. There is no number on file and no other number that can be called. While in the hospital, the patient stated that he did not want his family contacted. He will be discharged now. Consultation : Referral / Consult Name: Tyler Friedman MD Consulted With: Hospitalist Call Returned at: 02:29 Note: Spoke with Dr. Friedman, hospitalist, about the patient's case. Patient violated his behavior contract and is not eligable for readmission to the hospital. Counseled Regarding: Diagnosis, Lab results, Need for follow-up, When/why to return to ED Discharge & Departure Primary Impression: Gangrene of foot Additional Impressions: Noncompliance by refusing intervention or support Huntingtons chorea Disposition: Home Discharge Condition All VS Reviewed: Yes Condition: Stable Additional Instructions: We are unable to provide care for you here, given your consistent refusal to comply with care. You were presented with contract covering your behavior and treatment, and you violated that immediately. We would be happy to help you with contacting your family for support, but you have no numbers, and social work has documented that you have forbidden contact with your family while here. There is no current emergency requiring emergency medical admission. Scribe Attestation Portions of this note were transcribed by Estefany Means. I, Dr. Kasper personally performed the history, physical exam and medical decision-making; I reviewed and confirmed the accuracy of the information in the transcribed note. Signed by: Cara Ahuja, 07/29/2016 0423 Lennox Kasper MD Jul 29, 2016 02:06 Estefany Means Jul 29, 2016 02:30
[2016-07-29 03:03] VITALS: BP 120/70; PULSE 90; RESP 16; O2SAT 99
== END 2016-07-29 03:05 | disposition home or self-care (01) ==
LOC: SED 01:47
DX: I96 Gangrene, not elsewhere classified (principal); G10 Huntington's disease; Z91.19 Patient's noncompliance with other medical treatment and regimen; Z59.0 Homelessness